=== PATIENT | male | born 1945 | race Caucasian/White ===

== ENCOUNTER 2020-04-06 09:13 | Outpatient (REF) | payer MEDICARE, SELFPAY ==
[2020-04-06 11:09] LABS: Alanine Aminotransferase 26 U/L (0-40); Anion Gap 15 (12-20); Aspartate Amino Transferase 38 U/L (5-37); Blood Urea Nitrogen 13 mg/dL (9-16); Carbon Dioxide 32 mmol/L (22-29); Chloride 98 mmol/L (96-108); Estimated Glomerular Filt Rate > 60; Potassium 3.9 mmol/L (3.3-5.1); Sodium 141 mmol/L (135-145)
== END 2020-04-06 09:14 | disposition home or self-care (01) ==
LOC: HO.10HDL 09:13
PROVIDERS: Visit Provider Family Medicine
DX: I10 Essential (primary) hypertension (principal); E78.00 Pure hypercholesterolemia, unspecified; Z79.899 Other long term (current) drug therapy
CPT/HCPCS: 36415; 80051; 82550; 82565; 84450; 84460; 84520

== ENCOUNTER → 2020-08-17 12:35 | Outpatient (BNVA) | payer MEDICARE, SELFPAY | PROVIDERS: PCP Family Medicine; Referring Provider Family Medicine; Visit Provider Internal Medicine Cardiovascular Disease | DX: I49.9 Cardiac arrhythmia, unspecified (principal) | CPT/HCPCS: 93005; 99212 ==

== ENCOUNTER 2020-09-28 06:24 | Outpatient (REF) | payer MEDICARE, SELFPAY ==
[2020-09-28 09:00] LABS: Alanine Aminotransferase 22 U/L (0-40); Anion Gap 11 (12-20); Blood Urea Nitrogen 18 mg/dL (9-16); Carbon Dioxide 35 mmol/L (22-29); Chloride 103 mmol/L (96-108); Estimated Glomerular Filt Rate > 60; Potassium 4.8 mmol/L (3.3-5.1); Sodium 144 mmol/L (135-145)
== END 2020-09-28 06:25 | disposition home or self-care (01) ==
LOC: HO.LAB 06:24
PROVIDERS: Absent Provider Internal Medicine; PCP Family Medicine; Visit Provider Family Medicine
DX: I10 Essential (primary) hypertension (principal); E78.00 Pure hypercholesterolemia, unspecified; Z79.899 Other long term (current) drug therapy
CPT/HCPCS: 36415; 80051; 82550; 82565; 84460; 84520

== ENCOUNTER 2021-01-25 13:41 | Emergency (ER) | payer OTHER, SELFPAY ==
[2021-01-25] VITALS (10 sets, daily range): BP systolic 100–155; BP diastolic 45–88; PULSE 18–99; RESP 16–20; TEMP 36.3–36.9; O2SAT 94–99; BMI 22.8
--- NOTE | 2021-01-25 14:33 | ECG_ITS ---
Test Reason : GENERAL MEDICAL Blood Pressure : / mmHG Vent. Rate : 087 BPM Atrial Rate : 087 BPM P-R Int : 148 ms QRS Dur : 112 ms QT Int : 386 ms P-R-T Axes : 055 -10 080 degrees QTc Int : 464 ms Normal sinus rhythm Incomplete right bundle branch block Nonspecific T wave abnormality Prolonged QT Abnormal ECG When compared with ECG of 16-APR-2019 13:57, Nonspecific T wave abnormality now evident in Anterior leads Referred By: Cata Chandler Electronically Signed By:ISHAN POSADAS MD
--- NOTE | 2021-01-25 14:57 | ED_ITS ---
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 patient reports for the last couple of weeks he has felt very fatigued, short of breath with intermittent chest pains. He has some generalized weakness. He states 3 weeks ago he had 3 episodes of very loose very black stools after he ate sauerkraut. This self resolved. He is now suffering from constipation, last bowel movement was yesterday and he needed to strain to go. Bowel movement was brown. He denies any hematuria or any other source of bleeding. He has required blood transfusion with a past when he had his abdominal and thoracic surgeries. <LIZ Morales - Last Filed: 01/25/21 17:46> MD complaint: abnormal lab <LIZ Morales - Last Filed: 01/25/21 17:46> Returns today for: called because of abnormal lab/test <LIZ Morales Last Filed: 01/25/21 17:46> Context: called for abnormal lab result <LIZ Morales - Last Filed: 01/25/21 17:46> Associated symptoms: chest pain and shortness of breath <LIZ Morales - Last Filed: 01/25/21 17:46> Related Data Home Medications: Home Medications Medication Instructions Recorded Confirmed Lactobacillus acidophilus 10 mg PO DAILY 08/17/20 08/17/20 acetaminophen 120 mg-codeine 12 5 ml PO Q8H 08/17/20 08/17/20 mg/5 mL (5 mL) oral solution aspirin 81 mg tablet,delayed 81 mg PO DAILY 08/17/20 08/17/20 release (Adult Low Dose Aspirin) atorvastatin 40 mg tablet 40 mg PO BEDTIME 08/17/20 08/17/20 cyclobenzaprine 10 mg tablet 10 mg PO BEDTIME 08/17/20 08/17/20 duloxetine 60 mg capsule,delayed 60 mg PO DAILY 08/17/20 08/17/20 release levalbuterol tartrate 45 2 inh INHALATION Q6H 08/17/20 08/17/20 mcg/actuation aerosol inhaler mecobalamin (vitamin B12) 1,000 1,000 mcg PO DAILY 08/17/20 08/17/20 mcg chewable tablet mometasone 200 mcg/actuation HFA 1 puff INHALATION BEDTIME 08/17/20 08/17/20 aerosol inhaler (Asmanex HFA) omeprazole 20 mg capsule,delayed 20 mg PO DAILY 08/17/20 08/17/20 release tamsulosin 0.4 mg capsule 0.4 mg PO BEDTIME 08/17/20 08/17/20 temazepam 15 mg capsule 15 mg PO BEDTIME PRN 08/17/20 08/17/20 <LIZ Morales - Last Filed: 01/25/21 17:46> Allergies/Adverse Reactions: Allergies Allergy/AdvReac Type Severity Reaction Status Date / Time Sulfa (Sulfonamide Allergy Severe THROAT Unverified 10/30/19 14:34 Antibiotics) SWELLING, [SULFA (SULFONAMIDE DIFF ANTIBIOTICS)] BREATHING, SKIN TURNS PINK <LIZ Morales - Last Filed: 01/25/21 17:46> Review of Systems Review of Systems: Constitutional: No Fever, No Chills ENT/Mouth: No sore throat, No Rhinorrhea Cardiovascular: + Chest Pain, + SOB, No Orthopnea, No Edema Respiratory: No Cough, No Sputum, No Wheezing, + dyspnea Gastrointestinal: No Nausea, No Vomiting, No Diarrhea, No abdominal Pain Genitourinary: No Dysuria, No Urinary Frequency, No Hematuria Musculoskeletal: No joint pain, No Myalgias Skin: No Skin Lesions, No rash Neuro: + Weakness, No Numbness, + Dizziness, No Headache Psych: No Anxiety/Panic, No Depression Heme/Lymph: No Bruising, No Lymphadenopathy Endocrine: No Polyuria, No Polydipsia <LIZ Morales - Last Filed: 01/25/21 17:46> [facility] Past Medical History Medical History: Medical History Cardiac arrhythmia COPD (chronic obstructive pulmonary disease) <LIZ Morales - Last Filed: 01/25/21 17:46> Surgical History: Surgical History History of lobectomy of lung <LIZ Morales - Last Filed: 01/25/21 17:46> Family History Family History: Family History Father No problems noted. Mother No problems noted. <LIZ Morales - Last Filed: 01/25/21 17:46> Social History Social History: Social History Alcohol intake: current Alcohol intake frequency: a few times a week Patient Tobacco Use Status: Never used Tobacco Use of substances other than those prescribed or required for medical reasons: No Advance Directives: No Advance Directives Information Provided: Yes <LIZ Morales Last Filed: 01/25/21 17:46> Physical Exam Vital Signs: Vital Signs: Last Vital Signs Temp 98.4 F 01/25/21 20:57 Pulse 84 01/25/21 20:57 Resp 18 01/25/21 20:57 BP 141/88 H 01/25/21 20:57 Pulse Ox 94 01/25/21 20:57 BMI result Body Mass Index 22.8 <LIZ Morales Last Filed: 01/25/21 17:46> Vital Signs: Last Vital Signs Temp 98.4 F 01/25/21 20:57 Pulse 84 01/25/21 20:57 Resp 18 01/25/21 20:57 BP 141/88 H 01/25/21 20:57 Pulse Ox 94 01/25/21 20:57 BMI result Body Mass Index 22.8 <LIZ Narvaez - Last Filed: 01/25/21 22:27> Appearance: Alert. Oriented X3. No acute distress. Pale Eyes: Pupils equal, round and reactive to light. Scleral pallor ENT: Pharynx normal. Neck: Normal inspection. Neck supple. CVS: Normal heart rate and rhythm. Pulses normal. Respiratory: No respiratory distress. Breath sounds diminished RLL, otherwise clear Right chest wall with weal healed surgical scar c/w prior VATS Abdomen: Well healed longitudial surgical scar. Soft and nontender. +BS x4. SKYLA normal sphinter tone, no palpable hemorrhoids, formed brown stool. Skin: Skin warm and dry. Normal skin color. Normal skin turgor. No rashes. Extremities: No lower extremity edema. Neuro: Oriented X 3. No motor deficit. No sensory deficit. <LIZ Morales - Last Filed: 01/25/21 17:46> Course Course Course Narrative: 75 y/o male presents to the ER for evaluation of low hemoglobin. He has symptoms of acute anemia including fatigue, weakness, shortness of breath and intermittent chest pains. Will repeat his H&H here along with iron panel r eticulocyte count. Will get RBC morphology. Will send his stool for occult blood. He is hemodynamically stable with blood pressure 100/45, heart rate in the 90s. <LIZ Morales - Last Filed: 01/25/21 17:46> Reevaluation(s) Reevaluation #1: Hemoglobin 6.6 with hematocrit of 21.8. MCV dropped to the 70s from the 90s. Troponin is negative 4.2. Fecal occult blood test is negative. His iron studies are low. This is consistent with iron-deficiency anemia not acute blood loss. Will plan to transfuse 2 units of blood, repeat H&H to assess for appropriate response. Anticipate he will be discharged home with planned follow-up with hematology. <LIZ Morales - Last Filed: 01/25/21 17:46> MDM - Recheck/Abnormal Lab/Rx Lab Data Result diagrams: : 01/25/21 21:14 01/25/21 15:11 <LIZ Morales - Last Filed: 01/25/21 17:46> Labs: Lab Results 01/25/21 01/25/21 01/25/21 Range/Units 15:11 15:11 15:11 WBC 4.1 L (4.8-10.8) X10*3/uL RBC 2.81 L (4.60-5.80) X10*6/uL Hgb 6.6 L* (14.0-18.0) g/dl Hct 21.8 L (42.0-52.0) % MCV 77.6 L (80.0-98.0) fL MCH 23.5 L (27.0-33.0) pg MCHC 30.3 L (31.0-36.0) g/dl RDW 22.2 H (11.0-16.0) % Plt Count 270 (160-400) X10*3/uL MPV 8.9 L (9.4-12.4) fL Immature Gran % (Auto) 0.2 (0.0-0.4) % Neut % (Auto) 68.0 (45-73) % Lymph % (Auto) 14.5 L (20-40) % Cass % (Auto) 15.3 H (2-11) % Eos % (Auto) 1.5 (0-4) % Baso % (Auto) 0.5 (0-2) % Lymph # (Auto) 0.6 L (1.2-4.9) X10*3/uL Cass # (Auto) 0.6 (0.1-1.2) X10*3/uL Eos # (Auto) 0.1 (0.0-0.4) X10*3/uL Baso # (Auto) 0.0 (0.0-0.2) X10*3/uL Abs Immat Gran (auto) 0.01 (0.00-0.03) X10*3/uL Absolute Neuts (auto) 2.8 (2.0-8.3) x10*3/uL Absolute Nucleated RBC 0.000 (0.0-0.012) X10*3/uL Nucleated RBC % (auto) 0.0 (0.0-0.2) /100WBC Smear Tech's Comments Absolute Retic 0.051 (0.026-0.095) X10*6/uL Percent Retic 1.8 (0.5-1.8) % Immature Retic Fraction 10.1 (2.3-13.4) % Retic Hgb Equivalent 18.8 L (30.0-35.0) pg Sodium 139 (135-145) mmol/L Potassium 3.9 (3.3-5.1) mmol/L Chloride 99 (96-108) mmol/L Carbon Dioxide 31 H (22-29) mmol/L Anion Gap 13 (12-20) BUN 21 H (9-16) mg/dL Creatinine 0.96 (0.5-1.4) mg/dL Estim Creat Clear Calc 67.1 Estimated GFR > 60 Random Glucose 108 (60-115) mg/dL Calcium 9.4 (8.4-10.2) mg/dL Magnesium 1.9 (1.6-2.6) mg/dL Iron 21 L (45-160) mcg/dL TIBC 420 (228-428) mcg/dL % Saturation 5 L (15-50) % Unsat Iron Binding 399 ug/dL Total Bilirubin 0.5 (0.0-1.0) mg/dL Direct Bilirubin 0.2 (0.0-0.5) mg/dL AST 19 D (5-37) U/L ALT 15 (0-40) U/L Alkaline Phosphatase 61 (39-117) U/L Troponin I High Sens 4.2 (<3.5-35.0) ng/L Total Protein 6.7 (6.5-8.0) g/dL Albumin 4.3 (3.5-5.0) g/dL Urine Color Urine Appearance Urine pH (5.0-8.0) Ur Specific [place] (1.005-1.025) Urine Protein (NEG-TRACE) MG/DL Urine Glucose (UA) (NEG) MG/DL Urine Ketones (NEG) MG/DL Urine Blood (NEG) Urine Nitrite (NEG) Ur Leukocyte Esterase (NEG) Stool Occult Blood (NEGATIVE) COVID-19 (VASILIY) (Negative) COVID-19 Clin [facility] Blood Type Antibody Screen Crossmatch 01/25/21 01/25/21 01/25/21 Range/Units 15:11 15:11 15:16 WBC (4.8-10.8) X10*3/uL RBC (4.60-5.80) X10*6/uL Hgb (14.0-18.0) g/dl Hct (42.0-52.0) % MCV (80.0-98.0) fL MCH (27.0-33.0) pg MCHC (31.0-36.0) g/dl RDW (11.0-16.0) % Plt Count (160-400) X10*3/uL MPV (9.4-12.4) fL Immature Gran % (Auto) (0.0-0.4) % Neut % (Auto) (45-73) % Lymph % (Auto) (20-40) % Cass % (Auto) (2-11) % Eos % (Auto) (0-4) % Baso % (Auto) (0-2) % Lymph # (Auto) (1.2-4.9) X10*3/uL Cass # (Auto) (0.1-1.2) X10*3/uL Eos # (Auto) (0.0-0.4) X10*3/uL Baso # (Auto) (0.0-0.2) X10*3/uL Abs Immat Gran (auto) (0.00-0.03) X10*3/uL Absolute Neuts (auto) (2.0-8.3) x10*3/uL Absolute Nucleated RBC (0.0-0.012) X10*3/uL Nucleated RBC % (auto) (0.0-0.2) /100WBC Smear Tech's Comments Absolute Retic (0.026-0.095) X10*6/uL Percent Retic (0.5-1.8) % Immature Retic Fraction (2.3-13.4) % Retic Hgb Equivalent (30.0-35.0) pg Sodium (135-145) mmol/L Potassium (3.3-5.1) mmol/L Chloride (96-108) mmol/L Carbon Dioxide (22-29) mmol/L Anion Gap (12-20) BUN (9-16) mg/dL Creatinine (0.5-1.4) mg/dL Estim Creat Clear Calc Estimated GFR Random Glucose (60-115) mg/dL Calcium (8.4-10.2) mg/dL Magnesium (1.6-2.6) mg/dL Iron (45-160) mcg/dL TIBC (228-428) mcg/dL % Saturation (15-50) % Unsat Iron Binding ug/dL Total Bilirubin (0.0-1.0) mg/dL Direct Bilirubin (0.0-0.5) mg/dL AST (5-37) U/L ALT (0-40) U/L Alkaline Phosphatase (39-117) U/L Troponin I High Sens (<3.5-35.0) ng/L Total Protein (6.5-8.0) g/dL Albumin (3.5-5.0) g/dL Urine Color Urine Appearance Urine pH (5.0-8.0) Ur Specific [place] (1.005-1.025) Urine Protein (NEG-TRACE) MG/DL Urine Glucose (UA) (NEG) MG/DL Urine Ketones (NEG) MG/DL Urine Blood (NEG) Urine Nitrite (NEG) Ur Leukocyte Esterase (NEG) Stool Occult Blood NEGATIVE (NEGATIVE) COVID-19 (VASILIY) Negative (Negative) COVID-19 Clin Com See Note Blood Type A Positive Antibody Screen NEGATIVE Crossmatch See Detail 01/25/21 01/25/21 Range/Units 19:14 21:14 WBC 4.2 L (4.8-10.8) X10*3/uL RBC 3.23 L (4.60-5.80) X10*6/uL Hgb 8.2 L D (14.0-18.0) g/dl Hct 25.7 L (42.0-52.0) % MCV 79.6 L (80.0-98.0) fL MCH 25.4 L (27.0-33.0) pg MCHC 31.9 (31.0-36.0) g/dl RDW 21.1 H (11.0-16.0) % Plt Count 245 (160-400) X10*3/uL MPV 9.2 L (9.4-12.4) fL Immature Gran % (Auto) 0.2 (0.0-0.4) % Neut % (Auto) 48.6 (45-73) % Lymph % (Auto) 26.6 (20-40) % Cass % (Auto) 20.6 H (2-11) % Eos % (Auto) 3.3 (0-4) % Baso % (Auto) 0.7 (0-2) % Lymph # (Auto) 1.1 L (1.2-4.9) X10*3/uL Cass # (Auto) 0.9 (0.1-1.2) X10*3/uL Eos # (Auto) 0.1 (0.0-0.4) X10*3/uL Baso # (Auto) 0.0 (0.0-0.2) X10*3/uL Abs Immat Gran (auto) 0.01 (0.00-0.03) X10*3/uL Absolute Neuts (auto) 2.0 (2.0-8.3) x10*3/uL Absolute Nucleated RBC 0.000 (0.0-0.012) X10*3/uL Nucleated RBC % (auto) 0.0 (0.0-0.2) /100WBC Smear Tech's Comments VERIFIED Absolute Retic (0.026-0.095) X10*6/uL Percent Retic (0.5-1.8) % Immature Retic Fraction (2.3-13.4) % Retic Hgb Equivalent (30.0-35.0) pg Sodium (135-145) mmol/L Potassium (3.3-5.1) mmol/L Chloride (96-108) mmol/L Carbon Dioxide (22-29) mmol/L Anion Gap (12-20) BUN (9-16) mg/dL Creatinine (0.5-1.4) mg/dL Estim Creat Clear Calc Estimated GFR Random Glucose (60-115) mg/dL Calcium (8.4-10.2) mg/dL Magnesium (1.6-2.6) mg/dL Iron (45-160) mcg/dL TIBC (228-428) mcg/dL % Saturation (15-50) % Unsat Iron Binding ug/dL Total Bilirubin (0.0-1.0) mg/dL Direct Bilirubin (0.0-0.5) mg/dL AST (5-37) U/L ALT (0-40) U/L Alkaline Phosphatase (39-117) U/L Troponin I High Sens (<3.5-35.0) ng/L Total Protein (6.5-8.0) g/dL Albumin (3.5-5.0) g/dL Urine Color YELLOW Urine Appearance CLEAR Urine pH 6.0 (5.0-8.0) Ur Specific [place] 1.010 (1.005-1.025) Urine Protein NEG (NEG-TRACE) MG/DL Urine Glucose (UA) NEG (NEG) MG/DL Urine Ketones 5 (NEG) MG/DL Urine Blood NEG (NEG) Urine Nitrite NEG (NEG) Ur Leukocyte Esterase NEG (NEG) Stool Occult Blood (NEGATIVE) COVID-19 (VASILIY) (Negative) COVID-19 Clin Com Blood Type Antibody Screen Crossmatch <LIZ Morales - Last Filed: 01/25/21 17:46> Lab Results 01/25/21 01/25/21 01/25/21 Range/Units 15:11 15:11 15:11 WBC 4.1 L (4.8-10.8) X10*3/uL RBC 2.81 L (4.60-5.80) X10*6/uL Hgb 6.6 L* (14.0-18.0) g/dl Hct 21.8 L (42.0-52.0) % MCV 77.6 L (80.0-98.0) fL MCH 23.5 L (27.0-33.0) pg MCHC 30.3 L (31.0-36.0) g/dl RDW 22.2 H (11.0-16.0) % Plt Count 270 (160-400) X10*3/uL MPV 8.9 L (9.4-12.4) fL Immature Gran % (Auto) 0.2 (0.0-0.4) % Neut % (Auto) 68.0 (45-73) % Lymph % (Auto) 14.5 L (20-40) % Cass % (Auto) 15.3 H (2-11) % Eos % (Auto) 1.5 (0-4) % Baso % (Auto) 0.5 (0-2) % Lymph # (Auto) 0.6 L (1.2-4.9) X10*3/uL Cass # (Auto) 0.6 (0.1-1.2) X10*3/uL Eos # (Auto) 0.1 (0.0-0.4) X10*3/uL Baso # (Auto) 0.0 (0.0-0.2) X10*3/uL Abs Immat Gran (auto) 0.01 (0.00-0.03) X10*3/uL Absolute Neuts (auto) 2.8 (2.0-8.3) x10*3/uL Absolute Nucleated RBC 0.000 (0.0-0.012) X10*3/uL Nucleated RBC % (auto) 0.0 (0.0-0.2) /100WBC Smear Tech's Comments Absolute Retic 0.051 (0.026-0.095) X10*6/uL Percent Retic 1.8 (0.5-1.8) % Immature Retic Fraction 10.1 (2.3-13.4) % Retic Hgb Equivalent 18.8 L (30.0-35.0) pg Sodium 139 (135-145) mmol/L Potassium 3.9 (3.3-5.1) mmol/L Chloride 99 (96-108) mmol/L Carbon Dioxide 31 H (22-29) mmol/L Anion Gap 13 (12-20) BUN 21 H (9-16) mg/dL Creatinine 0.96 (0.5-1.4) mg/dL Estim Creat Clear Calc 67.1 Estimated GFR > 60 Random Glucose 108 (60-115) mg/dL Calcium 9.4 (8.4-10.2) mg/dL Magnesium 1.9 (1.6-2.6) mg/dL Iron 21 L (45-160) mcg/dL TIBC 420 (228-428) mcg/dL % Saturation 5 L (15-50) % Unsat Iron Binding 399 ug/dL Total Bilirubin 0.5 (0.0-1.0) mg/dL Direct Bilirubin 0.2 (0.0-0.5) mg/dL AST 19 D (5-37) U/L ALT 15 (0-40) U/L Alkaline Phosphatase 61 (39-117) U/L Troponin I High Sens 4.2 (<3.5-35.0) ng/L Total Protein 6.7 (6.5-8.0) g/dL Albumin 4.3 (3.5-5.0) g/dL Urine Color Urine Appearance Urine pH (5.0-8.0) Ur Specific [place] (1.005-1.025) Urine Protein (NEG-TRACE) MG/DL Urine Glucose (UA) (NEG) MG/DL Urine Ketones (NEG) MG/DL Urine Blood (NEG) Urine Nitrite (NEG) Ur Leukocyte Esterase (NEG) Stool Occult Blood (NEGATIVE) COVID-19 (VASILIY) (Negative) COVID-19 Clin Com Blood Type Antibody Screen Crossmatch 01/25/21 01/25/21 01/25/21 Range/Units 15:11 15:11 15:16 WBC (4.8-10.8) X10*3/uL RBC (4.60-5.80) X10*6/uL Hgb (14.0-18.0) g/dl Hct (42.0-52.0) % MCV (80.0-98.0) fL MCH (27.0-33.0) pg MCHC (31.0-36.0) g/dl RDW (11.0-16.0) % Plt Count (160-400) X10*3/uL MPV (9.4-12.4) fL Immature Gran % (Auto) (0.0-0.4) % Neut % (Auto) (45-73) % Lymph % (Auto) (20-40) % Cass % (Auto) (2-11) % Eos % (Auto) (0-4) % Baso % (Auto) (0-2) % Lymph # (Auto) (1.2-4.9) X10*3/uL Cass # (Auto) (0.1-1.2) X10*3/uL Eos # (Auto) (0.0-0.4) X10*3/uL Baso # (Auto) (0.0-0.2) X10*3/uL Abs Immat Gran (auto) (0.00-0.03) X10*3/uL Absolute Neuts (auto) (2.0-8.3) x10*3/uL Absolute Nucleated RBC (0.0-0.012) X10*3/uL Nucleated RBC % (auto) (0.0-0.2) /100WBC Smear Tech's Comments Absolute Retic (0.026-0.095) X10*6/uL Percent Retic (0.5-1.8) % Immature Retic Fraction (2.3-13.4) % Retic Hgb Equivalent (30.0-35.0) pg Sodium (135-145) mmol/L Potassium (3.3-5.1) mmol/L Chloride (96-108) mmol/L Carbon Dioxide (22-29) mmol/L Anion Gap (12-20) BUN (9-16) mg/dL Creatinine (0.5-1.4) mg/dL Estim Creat Clear Calc Estimated GFR Random Glucose (60-115) mg/dL Calcium (8.4-10.2) mg/dL Magnesium (1.6-2.6) mg/dL Iron (45-160) mcg/dL TIBC (228-428) mcg/dL % Saturation (15-50) % Unsat Iron Binding ug/dL Total Bilirubin (0.0-1.0) mg/dL Direct Bilirubin (0.0-0.5) mg/dL AST (5-37) U/L ALT (0-40) U/L Alkaline Phosphatase (39-117) U/L Troponin I High Sens (<3.5-35.0) ng/L Total Protein (6.5-8.0) g/dL Albumin (3.5-5.0) g/dL Urine Color Urine Appearance Urine pH (5.0-8.0) Ur Specific [place] (1.005-1.025) Urine Protein (NEG-TRACE) MG/DL Urine Glucose (UA) (NEG) MG/DL Urine Ketones (NEG) MG/DL Urine Blood (NEG) Urine Nitrite (NEG) Ur Leukocyte Esterase (NEG) Stool Occult Blood NEGATIVE (NEGATIVE) COVID-19 (VASILIY) Negative (Negative) COVID-19 Clin Com See Note Blood Type A Positive Antibody Screen NEGATIVE Crossmatch See Detail 01/25/21 01/25/21 Range/Units 19:14 21:14 WBC 4.2 L (4.8-10.8) X10*3/uL RBC 3.23 L (4.60-5.80) X10*6/uL Hgb 8.2 L D (14.0-18.0) g/dl Hct 25.7 L (42.0-52.0) % MCV 79.6 L (80.0-98.0) fL MCH 25.4 L (27.0-33.0) pg MCHC 31.9 (31.0-36.0) g/dl RDW 21.1 H (11.0-16.0) % Plt Count 245 (160-400) X10*3/uL MPV 9.2 L (9.4-12.4) fL Immature Gran % (Auto) 0.2 (0.0-0.4) % Neut % (Auto) 48.6 (45-73) % Lymph % (Auto) 26.6 (20-40) % Cass % (Auto) 20.6 H (2-11) % Eos % (Auto) 3.3 (0-4) % Baso % (Auto) 0.7 (0-2) % Lymph # (Auto) 1.1 L (1.2-4.9) X10*3/uL Cass # (Auto) 0.9 (0.1-1.2) X10*3/uL Eos # (Auto) 0.1 (0.0-0.4) X10*3/uL Baso # (Auto) 0.0 (0.0-0.2) X10*3/uL Abs Immat Gran (auto) 0.01 (0.00-0.03) X10*3/uL Absolute Neuts (auto) 2.0 (2.0-8.3) x10*3/uL Absolute Nucleated RBC 0.000 (0.0-0.012) X10*3/uL Nucleated RBC % (auto) 0.0 (0.0-0.2) /100WBC Smear Tech's Comments VERIFIED Absolute Retic (0.026-0.095) X10*6/uL Percent Retic (0.5-1.8) % Immature Retic Fraction (2.3-13.4) % Retic Hgb Equivalent (30.0-35.0) pg Sodium (135-145) mmol/L Potassium (3.3-5.1) mmol/L Chloride (96-108) mmol/L Carbon Dioxide (22-29) mmol/L Anion Gap (12-20) BUN (9-16) mg/dL Creatinine (0.5-1.4) mg/dL Estim Creat Clear Calc Estimated GFR Random Glucose (60-115) mg/dL Calcium (8.4-10.2) mg/dL Magnesium (1.6-2.6) mg/dL Iron (45-160) mcg/dL TIBC (228-428) mcg/dL % Saturation (15-50) % Unsat Iron Binding ug/dL Total Bilirubin (0.0-1.0) mg/dL Direct Bilirubin (0.0-0.5) mg/dL AST (5-37) U/L ALT (0-40) U/L Alkaline Phosphatase (39-117) U/L Troponin I High Sens (<3.5-35.0) ng/L Total Protein (6.5-8.0) g/dL Albumin (3.5-5.0) g/dL Urine Color YELLOW Urine Appearance CLEAR Urine pH 6.0 (5.0-8.0) Ur Specific [place] 1.010 (1.005-1.025) Urine Protein NEG (NEG-TRACE) MG/DL Urine Glucose (UA) NEG (NEG) MG/DL Urine Ketones 5 (NEG) MG/DL Urine Blood NEG (NEG) Urine Nitrite NEG (NEG) Ur Leukocyte Esterase NEG (NEG) Stool Occult Blood (NEGATIVE) COVID-19 (VASILIY) (Negative) COVID-19 Clin Com Blood Type Antibody Screen Crossmatch <LIZ Narvaez - Last Filed: 01/25/21 22:27> ECG Data Attestation: I personally reviewed and interpreted this ECG as follows: <LIZ Morales - Last Filed: 01/25/21 17:46> ECG interpretation date: 01/25/21 <LIZ Morales - Last Filed: 01/25/21 17:46> ECG interpretation time: 17:45 <LIZ Morales - Last Filed: 01/25/21 17:46> Prior ECG tracings: not available for review <LIZ Morales - Last Filed: 01/25/21 17:46> Interpretation: Normal sinus rhythm, heart rate 87 beats per minute, incomplete right bundle-branch block, no ST segment elevations or depressions. <LIZ Morales - Last Filed: 01/25/21 17:46> Critical Care Time Critical Care Time Critical Care Time: Yes <LIZ Morales - Last Filed: 01/25/21 17:46> Total Critical Care Time: 38 <LIZ Morales - Last Filed: 01/25/21 17:46> Attestation: I have personally provided critical care time exclusive of time spent on separately billable procedures. Time includes review of lab data, radiology results, and monitoring for potential decompensation. Intervention performed as documented. <LIZ Morales - Last Filed: 01/25/21 17:46> Discharge Plan Discharge Clinical Impression: Iron deficiency anemia Qualifiers: Iron deficiency anemia type: unspecified iron deficiency Qualified Code(s): D50.9 - Iron deficiency anemia, unspecified <LIZ Morales - Last Filed: 01/25/21 17:46> Patient Disposition: Home, Self-Care <LIZ Morales - Last Filed: 01/25/21 17:46> Instructions: Iron Deficiency Anemia (ED), Anemia (ED) <LIZ Morales - Last Filed: 01/25/21 17:46> Additional Instructions: Your hemoglobin was low at 6.6 today. Your stool had no blood in it. Your iron studies were low. Recommend starting an iron supplement daily. This can cause constipation so also recommend starting [id number] Colace to soften her stool and daily MiraLax to help prevent & treat constipation Recommend following up with Hematology for further evaluation. If you develop new or worsening symptoms call 911 or come back to the ER for further evaluation. <LIZ Morales - Last Filed: 01/25/21 17:46> Prescriptions: No Action aspirin [Adult Low Dose Aspirin] 81 mg tablet,delayed release (DR/EC) 81 mg PO DAILY RF: 0 mecobalamin (vitamin B12) 1,000 mcg tablet,chewable 1,000 mcg PO DAILY RF: 0 duloxetine 60 mg capsule,delayed release(DR/EC) 60 mg PO DAILY RF: 0 omeprazole 20 mg capsule,delayed release(DR/EC) 20 mg PO DAILY RF: 0 tamsulosin 0.4 mg capsule 0.4 mg PO BEDTIME RF: 0 Asmanex HFA 200 mcg/actuation HFA aerosol inhaler 1 puff inhalation BEDTIME RF: 0 atorvastatin 40 mg tablet 40 mg PO BEDTIME RF: 0 levalbuterol tartrate 45 mcg/actuation HFA aerosol inhaler 2 inh inhalation Q6H RF: 0 Lactobacillus acidophilus Capsule 10 mg PO DAILY RF: 0 temazepam 15 mg capsule 15 mg PO BEDTIME PRNRF: 0 acetaminophen-codeine 120 mg-12 mg /5 mL (5 mL) solution 5 ml PO Q8H RF: 0 cyclobenzaprine 10 mg tablet 10 mg PO BEDTIME RF: 0 <LIZ Morales - Last Filed: 01/25/21 17:46> Referrals: Liseth Mccarthy MD [Physician] - 2 days (Severe iron deficiency anemia) <LIZ Morales - Last Filed: 01/25/21 17:46>
[2021-01-25 15:18] LABS: MANUAL DIFF FLAG NO
[2021-01-25 15:20] LABS: Basophils Percent Auto 0.5 % (0-2); Eosinophils Absolute Auto 0.1 X10*3/uL (0.0-0.4); Eosinophils Percent Auto 1.5 % (0-4); Hematocrit 21.8 % (42.0-52.0); Imm Gran Abs Auto 0.01 X10*3/uL (0.00-0.03); Imm Gran Pct Auto 0.2 % (0.0-0.4); Immature Retic Fraction 10.1 % (2.3-13.4); Lymphocytes Absolute Auto 0.6 X10*3/uL (1.2-4.9); Lymphocytes Percent Auto 14.5 % (20-40); Mean Corpuscular HGB Conc 30.3 g/dl (31.0-36.0); Mean Corpuscular Hemoglobin 23.5 pg (27.0-33.0); Mean Corpuscular Volume 77.6 fL (80.0-98.0); Mean Platelet Volume 8.9 fL (9.4-12.4); Monocytes Absolute Auto 0.6 X10*3/uL (0.1-1.2); Monocytes Percent Auto 15.3 % (2-11); Neutrophils Absolute Auto 2.8 x10*3/uL (2.0-8.3); Platelet Count 270 X10*3/uL (160-400); Red Blood Count 2.81 X10*6/uL (4.60-5.80); Red Cell Distribution Width 22.2 % (11.0-16.0); Retic HGB Equivalent 18.8 pg (30.0-35.0); Reticulocyte Percent 1.8 % (0.5-1.8); Reticulocytes Absolute 0.051 X10*6/uL (0.026-0.095); White Blood Count 4.1 X10*3/uL (4.8-10.8)
[2021-01-25 15:24] LABS: OBS1 NEGATIVE (NEGATIVE)
[2021-01-25 15:25] LABS: OBS Int Ctl Valid YES
--- NOTE | 2021-01-25 15:30 | PC.NURSE ---
pt reports intermittent lightheadedness and dizziness. has palor lowerconjunctiva. slight tachipnea. LS CTA. last bm was yesterday after a few days of constipation. slight tenderness LLQ.
[2021-01-25 15:33] LABS: COVID-19 Test Negative (Negative)
[2021-01-25 15:37] LABS: Troponin-I High Sensitivity 4.2 ng/L (<3.5-35.0)
[2021-01-25 15:38] LABS: Alanine Aminotransferase 15 U/L (0-40); Albumin Level 4.3 g/dL (3.5-5.0); Alkaline Phosphatase 61 U/L (39-117); Anion Gap 13 (12-20); Aspartate Amino Transferase 19 U/L (5-37); Bilirubin Direct 0.2 mg/dL (0.0-0.5); Bilirubin Total 0.5 mg/dL (0.0-1.0); Blood Urea Nitrogen 21 mg/dL (9-16); Calcium 9.4 mg/dL (8.4-10.2); Carbon Dioxide 31 mmol/L (22-29); Chloride 99 mmol/L (96-108); Creatinine Clr Calc Pharmacy 67.1; Estimated Glomerular Filt Rate > 60; Glucose Random 108 mg/dL (60-115); Iron 21 mcg/dL (45-160); Magnesium 1.9 mg/dL (1.6-2.6); Percent Iron Saturation 5 % (15-50); Potassium 3.9 mmol/L (3.3-5.1); Sodium 139 mmol/L (135-145); Total Iron Binding Capacity 420 mcg/dL (228-428); Total Protein 6.7 g/dL (6.5-8.0); Unsaturated Iron Binding 399 ug/dL
[2021-01-25 15:43] LABS: Hemoglobin 6.6 g/dl (14.0-18.0)
--- NOTE | 2021-01-25 19:27 | PC.NURSE ---
1st unit of blood ended at 1926.
[2021-01-25 19:28] LABS: Appearance Urine CLEAR; Color Urine YELLOW; Glucose Urine UA NEG (NEG); Leukocyte Esterase Urine NEG (NEG); Nitrite Urine NEG (NEG); Urine Blood NEG (NEG); Urine Ketones 5 MG/DL (NEG); Urine Protein NEG (NEG-TRACE)
--- NOTE | 2021-01-25 20:55 | PC.NURSE ---
End of second transfusion now. VSS, patient tolerated transfusion as expected
[2021-01-25 21:19] LABS: Basophils Percent Auto 0.7 % (0-2); Eosinophils Absolute Auto 0.1 X10*3/uL (0.0-0.4); Eosinophils Percent Auto 3.3 % (0-4); Hematocrit 25.7 % (42.0-52.0); Hemoglobin 8.2 g/dl (14.0-18.0); Imm Gran Abs Auto 0.01 X10*3/uL (0.00-0.03); Imm Gran Pct Auto 0.2 % (0.0-0.4); Lymphocytes Absolute Auto 1.1 X10*3/uL (1.2-4.9); Lymphocytes Percent Auto 26.6 % (20-40); MANUAL DIFF FLAG SCAN; Mean Corpuscular HGB Conc 31.9 g/dl (31.0-36.0); Mean Corpuscular Hemoglobin 25.4 pg (27.0-33.0); Mean Corpuscular Volume 79.6 fL (80.0-98.0); Mean Platelet Volume 9.2 fL (9.4-12.4); Monocytes Absolute Auto 0.9 X10*3/uL (0.1-1.2); Monocytes Percent Auto 20.6 % (2-11); Neutrophils Percent Auto 48.6 % (45-73); Platelet Count 245 X10*3/uL (160-400); Red Blood Count 3.23 X10*6/uL (4.60-5.80); Red Cell Distribution Width 21.1 % (11.0-16.0); SCAN SMEAR FLAG 1; White Blood Count 4.2 X10*3/uL (4.8-10.8)
[2021-01-25 22:05] LABS: SLIDE REVIEW VERIFIED
== END 2021-01-26 00:23 | disposition home or self-care (01) ==
PROVIDERS: Physician Assistant; Physician Assistant Medical; Emergency Provider Emergency Medicine
DX: D50.9 Iron deficiency anemia, unspecified (principal); Z20.822 Contact with and (suspected) exposure to COVID-19; R53.1 Weakness
CPT/HCPCS: 36415; 36430; 80048; 80076; 81003; 82272; 83540; 83735; 84484; 85025; 85045; 86850; 86900; 86901; 86923; 87635; 93005; 99285; 99291; P9016

== ENCOUNTER 2021-01-31 10:37 | Outpatient (REF) | payer MEDICARE, SELFPAY ==
[2021-01-31 15:00] LABS: Imm Gran Abs Auto 0.01 X10*3/uL (0.00-0.03); Imm Gran Pct Auto 0.3 % (0.0-0.4); Lymphocytes Absolute Auto 0.7 X10*3/uL (1.2-4.9); MANUAL DIFF FLAG SCAN; SCAN SMEAR FLAG 1
[2021-01-31 15:02] LABS: Basophils Percent Auto 0.6 % (0-2); Eosinophils Absolute Auto 0.1 X10*3/uL (0.0-0.4); Eosinophils Percent Auto 2.2 % (0-4); Hematocrit 29.8 % (42.0-52.0); Hemoglobin 9.2 g/dl (14.0-18.0); Lymphocytes Percent Auto 23.3 % (20-40); Mean Corpuscular HGB Conc 30.9 g/dl (31.0-36.0); Mean Platelet Volume 9.7 fL (9.4-12.4); Monocytes Absolute Auto 0.5 X10*3/uL (0.1-1.2); Monocytes Percent Auto 15.4 % (2-11); Neutrophils Absolute Auto 1.9 x10*3/uL (2.0-8.3); Neutrophils Percent Auto 58.2 % (45-73); Platelet Count 289 X10*3/uL (160-400); Red Blood Count 3.68 X10*6/uL (4.60-5.80); Red Cell Distribution Width 22.6 % (11.0-16.0); White Blood Count 3.2 X10*3/uL (4.8-10.8)
[2021-01-31 15:36] LABS: Reticulocytes Absolute 0.084 X10*6/uL (0.026-0.095)
[2021-01-31 15:37] LABS: Immature Retic Fraction 10.2 % (2.3-13.4); Retic HGB Equivalent 19.8 pg (30.0-35.0); Reticulocyte Percent 2.3 % (0.5-1.8)
[2021-01-31 15:38] LABS: Prothrombin Time 11.5 SEC (9.9-13.0)
[2021-01-31 15:51] LABS: SLIDE REVIEW VERIFIED
== END 2021-01-31 10:38 | disposition home or self-care (01) ==
LOC: HO.10HDL 10:37
PROVIDERS: Visit Provider Family Medicine
DX: D64.9 Anemia, unspecified (principal)
CPT/HCPCS: 36415; 85025; 85045; 85610

== ENCOUNTER 2021-02-01 11:07 | Outpatient (REF) | payer MEDICARE, SELFPAY ==
[2021-02-01 14:56] LABS: Iron 21 mcg/dL (45-160); Percent Iron Saturation 5 % (15-50); Total Iron Binding Capacity 429 mcg/dL (228-428); Unsaturated Iron Binding 408 ug/dL
== END 2021-02-01 11:08 | disposition home or self-care (01) ==
LOC: HO.10HDL 11:07
PROVIDERS: Visit Provider Family Medicine
DX: D64.9 Anemia, unspecified (principal)
CPT/HCPCS: 36415; 83540

== ENCOUNTER 2021-02-07 10:46 | Day surgery (SDC) | payer MEDICARE, SELFPAY ==
--- NOTE | 2021-02-03 13:01 | P.CONAN_ITS ---
Documented by User: Monika Chacon NP 02/03/21 13:10 HPI - Anesthesia Eval Consult details Narrative: 75yo M for Upper Endoscopy and Colonoscopy [facility] Active Problems Active Problems: All Active Problems (Updated 01/27/21 @ 00:02 by Vic Davis) Cardiac arrhythmia (Acute) Past Medical History Medical History Cardiac arrhythmia COPD (chronic obstructive pulmonary disease) Family History Family History Father No problems noted. Mother No problems noted. Surgical History Surgical History History of lobectomy of lung Social History Social History Alcohol intake: current Alcohol intake frequency: a few times a week Patient Tobacco Use Status: Never used Tobacco Second Hand Smoke Exposure: No Use of substances other than those prescribed or required for medical reasons: No Are you DNR?: No Advance Directives: No Advance Directives Information Provided: Yes Advance Directives on File: No Narrative Narrative: Follows [facility] [place] [facility] [place] [facility] for arrhythmia. Does not tolerate beta blockers. No further pharm treatment. Stress mitigation. Last seen 08/2020 with 1 year follow up. Meds Allergies Allergy/AdvReac Type Severity Reaction Status Date / Time Sulfa (Sulfonamide Allergy Severe THROAT Unverified 10/30/19 14:34 Antibiotics) SWELLING, [SULFA (SULFONAMIDE DIFF ANTIBIOTICS)] BREATHING, SKIN TURNS PINK Home Medications Medication Instructions Recorded Confirmed Last Taken Type Lactobacillus acidophilus 10 mg PO DAILY 08/17/20 08/17/20 Unknown History acetaminophen 120 mg-codeine 12 5 ml PO Q8H 08/17/20 08/17/20 Unknown History mg/5 mL (5 mL) oral solution aspirin 81 mg tablet,delayed 81 mg PO DAILY 08/17/20 08/17/20 02/02/21 History release (Adult Low Dose Aspirin) atorvastatin 40 mg tablet 40 mg PO BEDTIME 08/17/20 08/17/20 Unknown History cyclobenzaprine 10 mg tablet 10 mg PO BEDTIME 08/17/20 08/17/20 Unknown History duloxetine 60 mg capsule,delayed 60 mg PO DAILY 08/17/20 08/17/20 Unknown Hi story release levalbuterol tartrate 45 2 inh INHALATION Q6H 08/17/20 08/17/20 Unknown History mcg/actuation aerosol inhaler mecobalamin (vitamin B12) 1,000 1,000 mcg PO DAILY 08/17/20 08/17/20 Unknown History mcg chewable tablet mometasone 200 mcg/actuation HFA 1 puff INHALATION BEDTIME 08/17/20 08/17/20 Unknown History aerosol inhaler (Asmanex HFA) omeprazole 20 mg capsule,delayed 20 mg PO DAILY 08/17/20 08/17/20 Unknown History release tamsulosin 0.4 mg capsule 0.4 mg PO BEDTIME 08/17/20 08/17/20 Unknown History temazepam 15 mg capsule 15 mg PO BEDTIME PRN 08/17/20 08/17/20 Unknown History Exam Exam Date and Time: February 03, 2021 1301 Pertinent Lab Results Pertinent Lab Results: Laboratory Tests 01/25/21 01/31/21 15:11 10:42 WBC 3.2 L Hgb 9.2 L Hct 29.8 L Plt Count 289 Sodium 139 Potassium 3.9 Chloride 99 Carbon Dioxide 31 H BUN 21 H Creatinine 0.96 Assessment and Plan Assessment Anesthesia Assessment: Chart Reviewed Documented by User: Edelmira Owen MD 02/07/21 11:22 [facility] Past Medical History Medical History Cardiac arrhythmia COPD (chronic obstructive pulmonary disease) Family History Family History Father No problems noted. Mother No problems noted. Surgical History Surgical History History of lobectomy of lung Social History Social History Alcohol intake: current Alcohol intake frequency: a few times a week Patient Tobacco Use Status: Never used Tobacco Second Hand Smoke Exposure: No Use of substances other than those prescribed or required for medical reasons: No Are you DNR?: No Advance Directives: No Advance Directives Information Provided: Yes Advance Directives on File: No Meds Allergies Allergy/AdvReac Type Severity Reaction Status Date / Time Sulfa (Sulfonamide Allergy Severe THROAT Unverified 10/30/19 14:34 Antibiotics) SWELLING, [SULFA (SULFONAMIDE DIFF ANTIBIOTICS)] BREATHING, SKIN TURNS PINK Home Medications Medication Instructions Recorded Confirmed Last Taken Type Lactobacillus acidophilus 10 mg PO DAILY 08/17/20 08/17/20 Unknown History acetaminophen 120 mg-codeine 12 5 ml PO Q8H 08/17/20 08/17/20 Unknown History mg/5 mL (5 mL) oral solution aspirin 81 mg tablet,delayed 81 mg PO DAILY 08/17/20 08/17/20 02/02/21 History release (Adult Low Dose Aspirin) atorvastatin 40 mg tablet 40 mg PO BEDTIME 08/17/20 08/17/20 Unknown History cyclobenzaprine 10 mg tablet 10 mg PO BEDTIME 08/17/20 08/17/20 Unknown History duloxetine 60 mg capsule,delayed 60 mg PO DAILY 08/17/20 08/17/20 Unknown History release levalbuterol tartrate 45 2 inh INHALATION Q6H 08/17/20 08/17/20 Unknown History mcg/actuation aerosol inhaler mecobalamin (vitamin B12) 1,000 1,000 mcg PO DAILY 08/17/20 08/17/20 Unknown History mcg chewable tablet mometasone 200 mcg/actuation HFA 1 puff INHALATION BEDTIME 08/17/20 08/17/20 Unknown History aerosol inhaler (Asmanex HFA) omeprazole 20 mg capsule,delayed 20 mg PO DAILY 08/17/20 08/17/20 Unknown History release tamsulosin 0.4 mg capsule 0.4 mg PO BEDTIME 08/17/20 08/17/20 Unknown History temazepam 15 mg capsule 15 mg PO BEDTIME PRN 08/17/20 08/17/20 Unknown History Exam Airway Mallampati Class: II TM Dist: >3cm Neck ROM: Full Partial: Upper
[2021-02-07 10:51] VITALS: BMI 23.1
[2021-02-07 11:12] VITALS: BP 150/91; PULSE 101; RESP 18; TEMP 36.7; O2SAT 98
[2021-02-07 14:15] VITALS: BP 135/77; PULSE 91; RESP 17; TEMP 36.4; O2SAT 100
--- NOTE | 2021-02-07 14:29 | P.BOP_ITS ---
Brief Operative Note Date of Service: 02/07/21 Pre-op diagnosis: Melena, Abnormal CT of colon Post-op diagnosis: other (Gastritis, Hiatal hernia, Colon polyps) Procedure: EGD with bx, Colonoscopy to the cecum and TI with bx/removal of polyps, hot snare polypectomy, and placement of 1 Resolution clip. Surgeon: Romero Lee Anesthesia: MAC Was an Senior Computer Specialist used for this Procedure?: No Estimated blood loss (mL): 3.0 Pathology: other (A. Gastric antrum B. EG Junction at 36cm C. Ascending colon polyps) Condition: stable Disposition: PACU
[2021-02-07 14:30] VITALS: BP 138/82; PULSE 82; RESP 16; TEMP 36.4; O2SAT 99
--- NOTE | 2021-02-07 15:28 | OP_ITS ---
SURGEON: Romero Lee MD INDICATIONS: The patient presents for evaluation of reported melena, anemia, abnormal CT scan of the colon. Full consent obtained from him for both procedures, including risks of bleeding and perforation. PREOPERATIVE DIAGNOSIS: POSTOPERATIVE DIAGNOSIS: PROCEDURE PERFORMED: Esophagogastroduodenoscopy with biopsies and colonoscopy to the cecum and terminal ileum with snare polypectomy, placement of 1 resolution clip, and biopsy and removal of polyps. ESTIMATED BLOOD LOSS: COMPLICATIONS: ANESTHESIA: Monitored anesthesia care. ASSISTANTS: SPECIMENS: PREOPERATIVE DIAGNOSES: Anemia, reported history of melena, and abnormal CT scan of colon. POSTOPERATIVE DIAGNOSES: Anemia, reported history of melena, abnormal CT scan of colon, hiatal hernia, gastritis, history of Goyal esophagus, colon polyps, diverticulosis and internal hemorrhoids. DESCRIPTION OF PROCEDURE: The patient was placed in the left lateral decubitus position. The Olympus video gastroscope was passed in the posterior oropharynx and upper esophagus under direct vision. The scope was passed slowly into the distal esophagus. The gastroesophageal junction appeared at 36 cm. There was some slight irregularity here consistent with reflux and previously known Goyal esophagus. There was no esophagitis, ulcerations, nor any lesions. The scope entered into the stomach. There was a moderate-sized hiatal hernia. There was some gastritis within the hiatal hernia pouch. There was no ulceration or mass. The scope was advanced to pylorus and the duodenum was cannulated to the descending portion. The duodenum including the bulb appeared normal without mass or ulceration. The scope was withdrawn back to the stomach. The gastric antrum had some changes with a chronic gastritis, but no erosions or ulceration. There was good peristalsis. The scope was retroflexed visualizing the proximal stomach carefully, which appeared normal, without any sign of mass or ulceration. Scope was straightened. Biopsies were obtained of the gastric antrum. The scope was withdrawn back in the esophagus. Biopsies were obtained at the EG junction at 36 cm. Proximal to this, the esophageal mucosa appeared normal. The scope was withdrawn from the patient. He was turned around for colonoscopy. The digital rectal exam revealed no abnormalities. The Olympus video pediatric colonoscope was entered into the rectum and advanced easily to the cecum. Once in the cecum, I did identify normal-appearing cecal pouch with appendiceal orifice and a normal-appearing ileocecal valve. The terminal ileum was cannulated and appeared normal. The scope withdrawn back in the colon. The entire cecum and ileocecal valve appeared normal. The scope was slowly withdrawn assessing all mucosal surfaces carefully. Preparation was excellent. In the ascending colon were multiple polyps. Several of these were small, approximately 5 mm or less and grossly hyperplastic. These were all biopsied and removed with cold biopsy forceps. There were then several polyps between 8 and 12 mm in diameter, which were grossly adenomatous in appearance and these were all snared with the hot snare and removed. All the polypectomy sites appeared clean, without any sign of residual polyp nor bleeding, other than 1 in which a resolution clip was applied with good deployment and good hemostasis. All of the specimens were placed in the same container. I did not visualize any other polyps, colitis, nor angiodysplasia. There was a moderate amount of sigmoid diverticulosis. In the rectum, scope was retroflexed visualizing internal hemorrhoids, but no other pathology. The rectal mucosa appeared normal. The scope was straightened and withdrawn from the patient. He tolerated the procedure well and was returned to recovery area in stable condition. IMPRESSION: 1. Multiple colon polyps, status post hot snare polypectomy, and biopsy removal. 2. Diverticulosis. 3. Internal hemorrhoids. 4. Hiatal hernia. 5. Chronic gastritis. 6. History of Goyal esophagus. PLAN: The results of the pathology will be checked. He has been advised to stay off all aspirin and NSAIDs for at least 1 week. He was advised to resume his iron. He will continue his omeprazole on a long-term basis. His most recent CBC did show improvement with a hemoglobin up to a level of 9.2 compared to 8.2 previously. He is not having any particular GI symptoms at this time. He will continue his iron, which I have recommended use twice a day, continue his PPI therapy, and I would recommend that he stay off all aspirin and NSAIDs for the time being. He will have a followup blood count in several weeks and then be seen in the office for followup. He has been advised to call sooner as needed. This has been discussed with his . MD EB Acuña/GABY / [id number]
== END 2021-02-07 15:23 | disposition home or self-care (01) ==
PROVIDERS: PCP Family Medicine; Visit Provider Internal Medicine
PROC: (CPT 45385; principal; 2021-02-07 12:00)
DX: D62 Acute posthemorrhagic anemia (principal); K92.1 Melena; R93.3 Abnormal findings on diagnostic imaging of other parts of digestive tract; D12.2 Benign neoplasm of ascending colon; K57.30 Diverticulosis of large intestine without perforation or abscess without bleeding; K64.8 Other hemorrhoids; K58.1 Irritable bowel syndrome with constipation; K29.50 Unspecified chronic gastritis without bleeding; Z87.19 Personal history of other diseases of the digestive system; K44.9 Diaphragmatic hernia without obstruction or gangrene; K21.9 Gastro-esophageal reflux disease without esophagitis; J44.9 Chronic obstructive pulmonary disease, unspecified; E78.5 Hyperlipidemia, unspecified; Z79.82 Long term (current) use of aspirin; Z79.899 Other long term (current) drug therapy; Z88.2 Allergy status to sulfonamides
CPT/HCPCS: 45385; 45380; 43239; 88305; 88342

== ENCOUNTER 2021-03-08 07:35 | Outpatient (REF) | payer MEDICARE, SELFPAY ==
[2021-03-08 10:16] LABS: MANUAL DIFF FLAG NO
[2021-03-08 10:21] LABS: Eosinophils Absolute Auto 0.2 X10*3/uL (0.0-0.4); Eosinophils Percent Auto 5.1 % (0-4); Hematocrit 38.1 % (42.0-52.0); Imm Gran Abs Auto 0.01 X10*3/uL (0.00-0.03); Imm Gran Pct Auto 0.3 % (0.0-0.4); Lymphocytes Absolute Auto 1.3 X10*3/uL (1.2-4.9); Lymphocytes Percent Auto 33.8 % (20-40); Mean Corpuscular HGB Conc 30.7 g/dl (31.0-36.0); Mean Corpuscular Hemoglobin 25.4 pg (27.0-33.0); Mean Corpuscular Volume 82.8 fL (80.0-98.0); Monocytes Absolute Auto 0.5 X10*3/uL (0.1-1.2); Monocytes Percent Auto 12.5 % (2-11); Neutrophils Absolute Auto 1.9 x10*3/uL (2.0-8.3); Neutrophils Percent Auto 47.3 % (45-73); Red Cell Distribution Width 25.4 % (11.0-16.0); White Blood Count 3.9 X10*3/uL (4.8-10.8)
[2021-03-08 10:24] LABS: Hemoglobin 11.7 g/dl (14.0-18.0)
[2021-03-08 10:52] LABS: Iron 149 mcg/dL (45-160); Percent Iron Saturation 43 % (15-50); Total Iron Binding Capacity 343 mcg/dL (228-428); Unsaturated Iron Binding 194 ug/dL
[2021-03-08 10:55] LABS: Platelet Count 184 X10*3/uL (160-400)
== END 2021-03-08 07:36 | disposition home or self-care (01) ==
LOC: HO.10HDL 07:35
PROVIDERS: Visit Provider Family Medicine
DX: D50.9 Iron deficiency anemia, unspecified (principal); R53.1 Weakness
CPT/HCPCS: 36415; 83540; 85025

== ENCOUNTER → 2021-08-18 13:35 | Outpatient (BNVA) | payer MEDICARE, SELFPAY | PROVIDERS: PCP Family Medicine; Referring Provider Family Medicine; Visit Provider Internal Medicine Cardiovascular Disease | DX: I49.9 Cardiac arrhythmia, unspecified (principal); J44.9 Chronic obstructive pulmonary disease, unspecified; Z79.899 Other long term (current) drug therapy | CPT/HCPCS: 93005; 99212 ==

== ENCOUNTER 2021-10-11 08:05 | Outpatient (REF) | payer MEDICARE, SELFPAY ==
[2021-10-11 08:24] LABS: MANUAL DIFF FLAG NO
[2021-10-11 09:06] LABS: Eosinophils Absolute Auto 0.3 X10*3/uL (0.0-0.4); Eosinophils Percent Auto 6.9 % (0-4); Hematocrit 39.1 % (42.0-52.0); Hemoglobin 12.8 g/dl (14.0-18.0); Imm Gran Abs Auto 0.02 X10*3/uL (0.00-0.03); Imm Gran Pct Auto 0.5 % (0.0-0.4); Lymphocytes Absolute Auto 1.3 X10*3/uL (1.2-4.9); Lymphocytes Percent Auto 31.2 % (20-40); Mean Corpuscular HGB Conc 32.7 g/dl (31.0-36.0); Mean Corpuscular Hemoglobin 30.1 pg (27.0-33.0); Mean Platelet Volume 10.2 fL (9.4-12.4); Monocytes Absolute Auto 0.4 X10*3/uL (0.1-1.2); Monocytes Percent Auto 10.3 % (2-11); Neutrophils Percent Auto 50.1 % (45-73); Platelet Count 198 X10*3/uL (160-400); Red Blood Count 4.25 X10*6/uL (4.60-5.80); Red Cell Distribution Width 13.9 % (11.0-16.0); White Blood Count 4.1 X10*3/uL (4.8-10.8)
[2021-10-11 09:29] LABS: Alanine Aminotransferase 22 U/L (0-40); Anion Gap 15 (12-20); Aspartate Amino Transferase 28 U/L (5-37); Blood Urea Nitrogen 14 mg/dL (9-16); Carbon Dioxide 31 mmol/L (22-29); Chloride 102 mmol/L (96-108); Estimated Glomerular Filt Rate > 60; Iron 131 mcg/dL (45-160); Percent Iron Saturation 61 % (15-50); Potassium 4.2 mmol/L (3.3-5.1); Sodium 144 mmol/L (135-145); Total Iron Binding Capacity 216 mcg/dL (228-428); Unsaturated Iron Binding 85 ug/dL
== END 2021-10-11 08:06 | disposition home or self-care (01) ==
LOC: HO.LAB 08:05
PROVIDERS: PCP Family Medicine; Visit Provider Family Medicine
DX: I10 Essential (primary) hypertension (principal); E78.00 Pure hypercholesterolemia, unspecified; D50.9 Iron deficiency anemia, unspecified; Z79.899 Other long term (current) drug therapy
CPT/HCPCS: 36415; 80051; 82550; 82565; 83540; 84450; 84460; 84520; 85025

== ENCOUNTER → 2021-10-27 10:16 | Outpatient (BNVA) | payer MEDICARE, SELFPAY | PROVIDERS: PCP Family Medicine; Visit Provider Internal Medicine Pulmonary Disease | DX: J47.9 Bronchiectasis, uncomplicated (principal); Z90.2 Acquired absence of lung [part of] | CPT/HCPCS: 99202 ==

== ENCOUNTER → 2021-11-22 10:22 | Outpatient (BNVA) | payer MEDICARE, SELFPAY | PROVIDERS: PCP Family Medicine; Visit Provider Internal Medicine Pulmonary Disease | DX: J44.9 Chronic obstructive pulmonary disease, unspecified (principal); Z90.2 Acquired absence of lung [part of] | CPT/HCPCS: 99212 ==

== ENCOUNTER 2021-11-28 10:33 | Outpatient (REF) | payer MEDICARE, SELFPAY ==
--- NOTE | ~2021-11-28 | CT_ITS ---
EXAMINATION: CT CHEST WITHOUT CONTRAST CLINICAL INFORMATION: Bronchiectasis. COMPARISON: Previous chest x-ray July 2009 TECHNIQUE: Multidetector volumetric CT imaging of the chest was done. Axial MIP volume rendering provided. Sagittal and coronal reformatted images were obtained. This CT examination was performed using dose optimization techniques as appropriate, variously including the following: *Automated exposure control *Adjustment of mA and/or kV according to patient size (this includes techniques or standardized protocols for targeted exams where dose is matched to indication/reason for exam; i.e. extremities or head) *Use of iterative reconstruction technique DLP: 145 mGy-cm FINDINGS: REGULATORY COMPLIANCE MANAGER: LUNGS: Semisolid heterogeneous right upper lobe nodules, largest measuring 5 mm axial image 144, 170, and 200 series 7. Volume loss to the right middle and lower lobe. Scarring or atelectasis in the right lower lobe adjacent to the diaphragmatic pleural surface. Large central groundglass attenuation area in the left upper lobe measuring approximately 2 x 3 cm. Small more peripheral heterogeneous groundglass attenuation nodules in the left upper lobe. 4 mm peripheral calcified left upper lobe nodule axial image 200 series 7. Increased AP dimension of the trachea prominent central airways. No endobronchial or endotracheal lesion or bronchiectasis.. MEDIASTINUM: The mediastinum is normal. CORONARY ARTERY CALCIFICATION: Mild PLEURA: There is no pleural effusion. No pleural mass or thickening. Marked elevation of the right hemidiaphragm. This is similar to previous chest x-ray from 2009. Small focus of diaphragmatic pleural or liver capsular calcification posteriorly axial image 43 series 3. AXILLA: No lymphadenopathy. UPPER ABDOMEN: Cortical thinning or scarring in the upper pole right kidney. Diverticulosis. OSSEOUS STRUCTURES: Degenerative changes of the spine and scoliosis. CT/CT chest wo IV con IMPRESSION: Marked elevation of the right hemidiaphragm. Multiple upper lobe groundglass attenuation nodules, largest measuring 2 x 3 cm in the central left upper lobe. Volume loss to the right middle and right lower lobes and right lower lobe atelectasis. Fleischner guidelines were followed.
== END 2021-11-28 10:34 | disposition home or self-care (01) ==
LOC: HO.CT 10:33
PROVIDERS: PCP Family Medicine; Visit Provider Internal Medicine Pulmonary Disease
DX: J47.9 Bronchiectasis, uncomplicated (principal)
CPT/HCPCS: 71250

== ENCOUNTER 2021-12-26 08:50 | Outpatient (REF) | payer MEDICARE, SELFPAY ==
--- NOTE | 2021-12-26 17:01 | PFT_ITS ---
FLOWS: FEV1 79% of predicted at 2.33 L. FVC 72% of predicted at 2.93 L. FEV1 to FVC ratio of 0.79. No bronchodilator response except in small to medium airways. LUNG VOLUMES: Total lung capacity 72% of predicted at 4.98 L. Residual volume 82% of predicted at 2.05 L. Slow vital capacity 67% of predicted at 2.93 L. Expiratory reserve volume 94% of predicted at 1.09 L. Diffusion capacity is moderately decreased, diffusion capacity corrects to normal after adjustment for alveolar ventilation. IMPRESSION: Moderate restrictive ventilatory defect with no bronchodilator response except in small to medium airways. MD RONALD Barry/MODL / [id number]
== END 2021-12-26 08:51 | disposition home or self-care (01) ==
LOC: HO.RESP 08:50
PROVIDERS: PCP Family Medicine; Visit Provider Internal Medicine Pulmonary Disease
DX: J44.9 Chronic obstructive pulmonary disease, unspecified (principal)
CPT/HCPCS: 94060; 94727; 94729

== ENCOUNTER 2022-02-15 08:58 | Outpatient (REF) | payer OTHER, MEDICARE, SELFPAY ==
[2022-02-15 10:21] LABS: MANUAL DIFF FLAG NO
[2022-02-15 10:26] LABS: Eosinophils Absolute Auto 0.3 X10*3/uL (0.0-0.4); Eosinophils Percent Auto 7.6 % (0-4); Hematocrit 41.7 % (42.0-52.0); Hemoglobin 13.3 g/dl (14.0-18.0); Imm Gran Abs Auto 0.01 X10*3/uL (0.00-0.03); Imm Gran Pct Auto 0.3 % (0.0-0.4); Lymphocytes Absolute Auto 1.2 X10*3/uL (1.2-4.9); Lymphocytes Percent Auto 31.2 % (20-40); Mean Corpuscular HGB Conc 31.9 g/dl (31.0-36.0); Mean Corpuscular Volume 93.9 fL (80.0-98.0); Mean Platelet Volume 9.9 fL (9.4-12.4); Monocytes Absolute Auto 0.5 X10*3/uL (0.1-1.2); Monocytes Percent Auto 12.1 % (2-11); Neutrophils Absolute Auto 1.8 x10*3/uL (2.0-8.3); Neutrophils Percent Auto 47.8 % (45-73); Platelet Count 230 X10*3/uL (160-400); Red Blood Count 4.44 X10*6/uL (4.60-5.80); Red Cell Distribution Width 14.1 % (11.0-16.0); White Blood Count 3.8 X10*3/uL (4.8-10.8)
[2022-02-15 11:00] LABS: Alanine Aminotransferase 15 U/L (0-40); Albumin Level 4.2 g/dL (3.5-5.0); Alkaline Phosphatase 66 U/L (39-117); Anion Gap 10 (12-20); Aspartate Amino Transferase 22 U/L (5-37); Bilirubin Total 0.6 mg/dL (0.0-1.0); Blood Urea Nitrogen 13 mg/dL (9-16); Calcium 9.6 mg/dL (8.4-10.2); Carbon Dioxide 36 mmol/L (22-29); Chloride 102 mmol/L (96-108); Estimated Glomerular Filt Rate > 60; Glucose Random 72 mg/dL (60-115); Potassium 4.6 mmol/L (3.3-5.1); Sodium 143 mmol/L (135-145); Total Protein 6.7 g/dL (6.5-8.0)
[2022-02-15 11:17] LABS: Prostate Specific Antigen Scr 3.86 ng/mL (<0.05-4.0)
== END 2022-02-15 08:59 | disposition home or self-care (01) ==
LOC: HO.10HDL 08:58
PROVIDERS: Visit Provider Family Medicine
DX: Z12.5 Encounter for screening for malignant neoplasm of prostate (principal); D50.9 Iron deficiency anemia, unspecified; R63.4 Abnormal weight loss
CPT/HCPCS: 36415; 80053; 84153; 85025

== ENCOUNTER → 2022-06-21 11:20 | Outpatient (BNVA) | payer OTHER, SELFPAY | PROVIDERS: PCP Family Medicine; Visit Provider Internal Medicine Pulmonary Disease | DX: J47.9 Bronchiectasis, uncomplicated (principal); Z90.2 Acquired absence of lung [part of] | CPT/HCPCS: 99212 ==

== ENCOUNTER → 2022-08-17 12:38 | Outpatient (BNVA) | payer MEDICARE, SELFPAY | PROVIDERS: PCP Family Medicine; Referring Provider Family Medicine; Visit Provider Internal Medicine Cardiovascular Disease | DX: I45.10 Unspecified right bundle-branch block (principal); I49.9 Cardiac arrhythmia, unspecified | CPT/HCPCS: 93005; 99212 ==

== ENCOUNTER 2022-10-24 10:57 | Outpatient (REF) | payer MEDICARE, OTHER, SELFPAY ==
--- NOTE | ~2022-10-24 | CT_ITS ---
EXAMINATION: CT CHEST WITHOUT CONTRAST CLINICAL INFORMATION: Acquired absence of lung. COMPARISON: CT chest 11/28/2021: Marked elevation of the right hemidiaphragm. Multiple upper lobe ground-glass attenuation nodules, largest measuring 2 x 3 cm in the central left upper lobe. Volume loss to the right middle and right lower lobes and right lower lobe atelectasis. TECHNIQUE: Multidetector volumetric CT imaging of the chest was done. Axial MIP volume rendering provided. Sagittal and coronal reformatted images were obtained. This CT examination was performed using dose optimization techniques as appropriate, variously including the following: *Automated exposure control *Adjustment of mA and/or kV according to patient size (this includes techniques or standardized protocols for targeted exams where dose is matched to indication/reason for exam; i.e. extremities or head) *Use of iterative reconstruction technique DLP: 127.26 mGy-cm FINDINGS: FREIGHT WEIGHER: Marked elevation of the right hemidiaphragm is unchanged. LUNGS: Marked volume loss in the right lung with elevated hemidiaphragm. Some calcified granulomas are present. Previously seen large area of ground-glass attenuation measuring 2 x 3 cm in the left upper lobe is no longer present. All previously seen semisolid right upper lobe nodules have resolved including a 4 mm right upper lobe nodule that had been present previously (prior 7:144) and a 3 mm right upper lobe nodule previously seen (7:169). No new or concerning lung masses are seen. MEDIASTINUM: No mediastinal or hilar lymphadenopathy. CORONARY ARTERY CALCIFICATION: Present. PLEURA: There is no pleural effusion. Calcified pleural plaque is present at the right lung base and is unchanged. No concerning pleural mass or thickening. AXILLA: No lymphadenopathy. UPPER ABDOMEN: Again seen is an area of cortical scarring in the right upper pole (5:63). No adrenal mass is seen. OSSEOUS STRUCTURES: Degenerative changes are present in the spine with biconvex thoracolumbar scoliosis . CT/CT chest wo IV con IMPRESSION: 1. Marked chronic elevation of the right hemidiaphragm with associated volume loss in the right lung. 2. All previously seen semisolid nodules have resolved. 3. No new or concerning lung masses are seen. 4. Calcified pleural plaque at the right lung base unchanged. 5. Scarring right upper pole kidney unchanged. 6. Scoliosis and degenerative changes in the spine with biconvex thoracolumbar scoliosis. Fleischner guidelines were followed.
== END 2022-10-24 10:58 | disposition home or self-care (01) ==
LOC: HO.CT 10:57
PROVIDERS: PCP Family Medicine; Visit Provider Internal Medicine Pulmonary Disease
DX: Z90.2 Acquired absence of lung [part of] (principal)
CPT/HCPCS: 71250

== ENCOUNTER 2022-12-08 09:23 | Outpatient (AMB) | payer MEDICARE, SELFPAY ==
[2022-12-08 09:27] VITALS: BP 122/72; PULSE 84; O2SAT 96; BMI 21.6
--- NOTE | 2022-12-08 09:27 | MHC.OFFVIS ---
Intake Vital Signs 12/08/22 09:27 Height 5 ft 9.5 in Weight 148 lb 1.903 oz BMI 21.6 BP 122/72 Blood Pressure Location Lt brachial Position Sitting Pulse 84 Pulse Source Doppler Pulse Oximetry (%) 96 Oxygen Delivery Method Room Air Intake Visit Reasons: copd Allergies Sulfa (Sulfonamide Antibiotics) [SULFA (SULFONAMIDE ANTIBIOTICS)] Allergy (Severe, Verified 12/08/22 09:30) THROAT SWELLING, DIFF BREATHING, SKIN TURNS PINK HPI copd HPI Details 77-year-old gentleman, nonsmoker, with underlying history of bronchiectasis status post right-sided lobectomy in 1960s at [facility], further complicated by what appears to be right-sided diaphragmatic dysfunction with prior sniff test with unclear results, and right-sided atelectasis.? Previously followed by pulmonology at [facility].? Patient complains of intermittent exacerbations of his bronchiectasis requiring suppressive antibiotic therapy.? Patient continues to do well on current regimen of Anoro, Asmanex, and albuterol MDI and denies any recent exacerbations. His follow-up CT chest shows resolution of previously noted nodules. [facility] Medical History Cardiac arrhythmia COPD (chronic obstructive pulmonary disease) Surgical History History of lobectomy of lung Family History Father No problems noted. Mother No problems noted. Social History Alcohol intake: current Alcohol intake frequency: a few times a week Patient Tobacco Use Status: Never used Tobacco Second Hand Smoke Exposure: No Review of Systems Const Denies daytime sleepiness, Denies excessive sweating, Denies fatigue, Denies fever(s), Denies lethargy, Denies malaise, Denies night sweats, Denies snoring and Denies weight loss Eyes Denies blurry vision and Denies itchy eyes ENT Denies nasal congestion, Denies post nasal drip, Denies sinus pain, Denies sinus pressure and Denies other ( Thrush) Card Denies chest pain, Denies pedal edema, Denies dyspnea, Denies orthopnea and Denies paroxysmal nocturnal dyspnea Resp Denies cough, Denies hemoptysis, Denies excessive phlegm production, Denies dyspnea, Denies snoring and Denies wheezing GI Denies abdominal pain and Denies heartburn Musc Denies myalgias, Denies arthralgias and Denies joint swelling Skin/Breast Denies rash Neuro Denies memory loss and Denies seizure-like activity Psych Denies abnormal sleep pattern, Denies anxiety and Denies memory loss Endo Denies excessive sweating, Denies fatigue and Denies heat intolerance Bacilio/Lymph Denies easy bruising Aller/Immun Denies itchy eyes, Denies seasonal rhinorrhea and Denies wheezing Physical Exam Vital Signs: Last Vital Signs Pulse 84 12/08/22 09:27 BP 122/72 12/08/22 09:27 Pulse Ox 96 12/08/22 09:27 Oxygen Delivery Method Room Air 12/08/22 09:27 BMI result Body Mass Index 21.6 Const General: no acute distress and alert Nutritional Appearance: not obese Orientation/consciousness: Other orientation findings ( oriented) HEENT Head: Yes atraumatic Eyes General: appearance normal, both eyes and all related structures Sclerae: sclerae normal EOM: EOMs intact bilaterally Neck Neck: Yes supple Lymphatic: no lymphadenopathy noted Resp Effort & Inspection: normal respiratory effort and no use of accessory muscles Auscultation: clear to auscultation bilaterally Cardio Rate: regular rate Rhythm: regular rhythm Heart sounds: no gallops, no murmurs and no rubs Skin General skin exam: other ( warm) Extrem General: No clubbing, No cyanosis and No edema Assessment & Plan Assessment & Plan (1) COPD (chronic obstructive pulmonary disease): Code(s): J44.9 - Chronic obstructive pulmonary disease, unspecified Plan: Reasonably well controlled on baseline regimen of Anoro, Asmanex, duo nebs, and albuterol MDI. Continue current regimen. Will refer to Pulmonary Rehab. (2) Status post lobectomy of lung: Code(s): Z90.2 - Acquired absence of lung [part of] (3) Bronchiectasis: Code(s): J47.9 - Bronchiectasis, uncomplicated Plan: No recent exacerbations. Continue to monitor clinically. Orders: Orders Pulmonary Rehab Today J44.9 - Chronic obstructive pulmonary disease, unspecified Coding Level of Care Code Est Pt Level 4 (66046) Diagnoses COPD (chronic obstructive pulmonary disease) J44.9 Status post lobectomy of lung Z90.2 Bronchiectasis J47.9
== END 2022-12-08 09:56 | disposition home or self-care (01) ==
PROVIDERS: PCP Family Medicine; Visit Provider Internal Medicine Pulmonary Disease
DX: J44.9 Chronic obstructive pulmonary disease, unspecified (principal); Z90.2 Acquired absence of lung [part of]
CPT/HCPCS: 99214

== ENCOUNTER → 2022-12-08 09:23 | Outpatient (BNVA) | payer MEDICARE, SELFPAY | PROVIDERS: PCP Family Medicine; Visit Provider Internal Medicine Pulmonary Disease | DX: J44.9 Chronic obstructive pulmonary disease, unspecified (principal); J47.9 Bronchiectasis, uncomplicated; Z90.2 Acquired absence of lung [part of] | CPT/HCPCS: 99212 ==

== ENCOUNTER 2023-02-08 07:15 | Outpatient (REF) | payer MEDICARE, SELFPAY ==
[2023-02-08 07:35] LABS: MANUAL DIFF FLAG NO
[2023-02-08 07:56] LABS: Basophils Percent Auto 1.2 % (0-2); Eosinophils Absolute Auto 0.2 X10*3/uL (0.0-0.4); Eosinophils Percent Auto 5.5 % (0-4); Hematocrit 39.1 % (42.0-52.0); Hemoglobin 12.9 g/dl (14.0-18.0); Imm Gran Abs Auto 0.01 X10*3/uL (0.00-0.03); Imm Gran Pct Auto 0.3 % (0.0-0.4); Lymphocytes Absolute Auto 1.2 X10*3/uL (1.2-4.9); Lymphocytes Percent Auto 34.6 % (20-40); Mean Corpuscular Hemoglobin 29.9 pg (27.0-33.0); Mean Corpuscular Volume 90.7 fL (80.0-98.0); Mean Platelet Volume 9.4 fL (9.4-12.4); Monocytes Absolute Auto 0.4 X10*3/uL (0.1-1.2); Neutrophils Absolute Auto 1.6 x10*3/uL (2.0-8.3); Neutrophils Percent Auto 47.4 % (45-73); Platelet Count 161 X10*3/uL (160-400); Red Blood Count 4.31 X10*6/uL (4.60-5.80); Red Cell Distribution Width 14.5 % (11.0-16.0); White Blood Count 3.4 X10*3/uL (4.8-10.8)
[2023-02-08 08:18] LABS: Alanine Aminotransferase 15 U/L (0-40); Anion Gap 17 (12-20); Aspartate Amino Transferase 23 U/L (5-37); Blood Urea Nitrogen 14 mg/dL (9-16); Carbon Dioxide 26 mmol/L (22-29); Chloride 103 mmol/L (96-108); Estimated Glomerular Filt Rate > 60; Potassium 3.7 mmol/L (3.3-5.1); Sodium 142 mmol/L (135-145)
== END 2023-02-08 07:16 | disposition home or self-care (01) ==
LOC: HO.LAB 07:15
PROVIDERS: PCP Family Medicine; Visit Provider Family Medicine
DX: I10 Essential (primary) hypertension (principal); D50.9 Iron deficiency anemia, unspecified; E78.00 Pure hypercholesterolemia, unspecified; Z79.899 Other long term (current) drug therapy
CPT/HCPCS: 36415; 80051; 82550; 82565; 84450; 84460; 84520; 85025

== ENCOUNTER 2023-03-12 07:48 | Outpatient (REF) | payer MEDICARE, SELFPAY ==
--- NOTE | ~2023-03-12 | FL_ITS ---
EXAMINATION: XR FLUOROSCOPY UPPER GI WITH AIR CLINICAL INFORMATION: Dysphagia, achalasia. Parkinson's COMPARISON: None TECHNIQUE: Fluoroscopic air contrast upper GI examination was performed utilizing standard techniques with thin and thick barium and effervescent granules. Numerous spot images were obtained. FINDINGS: Lateral cine images of the oropharynx and hypopharynx demonstrate normal swallow mechanism with normal epiglottic inversion and soft palate elevation. There is trace laryngeal penetration of the thick barium to level of the vocal cords. No tracheal aspiration is seen. No nasopharyngeal reflux present. Hypopharyngeal structures appear normal without evidence of mass or diverticulum. 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 Dual and single contrast images of the esophagus demonstrate normal caliber, contour, and mucosal pattern. No evidence of stricture, mass, or ulcerations identified. Esophageal peristalsis was mildly disorganized. There is mild to moderate narrowing of the lower esophageal sphincter. No evidence of hiatus hernia identified. No significant gastroesophageal reflux was seen during the course of the examination and on reflux views. Dual contrast and single contrast images of the stomach demonstrated a normal contour. The stomach is positioned horizontally. Evaluation of the mucosa is limited due to lack of distention of the stomach from poor tolerance of the effervescent granules. The gastric mucosal folds appear thickened, possibly artifactually. There are a few small areas of pooling in the gastric body and fundus that may represent small superficial ulcers. Stable bulbous appearance of the antrum with distal narrowing approaching the pyloric channel. This is unchanged when compared with 2017. Single and air-contrast images of the duodenal bulb demonstrate no abnormality. The duodenal sweep has a normal appearance, course, and mucosal fold appearance. There is a small second segment duodenal diverticulum. The imaged proximal jejunum has apparent fold thickening, which could be related to technique, or conversely, relate to a proximal enteritis. Marked elevation of the right hemidiaphragm. FLUOROSCOPY TIME: 7 minutes 19 seconds Number of Spot Images: 9 Number of Cine: 15 DOSE AREA PRODUCT: 3579 uGy-m2 (microgray-meter squared) FL/FL barium swallow IMPRESSION: 1. Trace laryngeal penetration of the thick barium to level the vocal cords. No tracheal aspiration is seen. 2. 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 This is likely contributing to the patient's dysphagia. 3. Mild narrowing of the lower esophageal sphincter, likely due to mild achalasia. 4. Mildly disorganized esophageal motility. 5. Evaluation of the gastric mucosa is limited due to lack of distention from poor tolerance of the effervescent granules, however, the gastric mucosal folds appear thickened. There are a few small areas of pooling of contrast in the gastric body and fundus. These findings may represent erosive gastritis. Recommend correlation with EGD. This procedure was performed by Hieu Rodas PA-C, and supervised by Dr. Esparza
== END 2023-03-12 07:49 | disposition home or self-care (01) ==
LOC: HO.XRAY 07:48
PROVIDERS: PCP Family Medicine; Visit Provider Family Medicine
DX: R13.10 Dysphagia, unspecified (principal); K22.0 Achalasia of cardia
CPT/HCPCS: 74220

== ENCOUNTER → 2023-03-12 07:49 | Outpatient (BNV) | payer MEDICARE, SELFPAY | PROVIDERS: PCP Family Medicine; Visit Provider Radiology Diagnostic Radiology | DX: R13.10 Dysphagia, unspecified (principal) | CPT/HCPCS: 74221 ==

== ENCOUNTER 2023-03-19 14:25 | Emergency (ER) | payer MEDICARE, SELFPAY ==
--- NOTE | ~2023-03-19 | CT_ITS ---
EXAMINATION: CT HEAD WITHOUT CONTRAST CLINICAL INFORMATION: Fall COMPARISON: None TECHNIQUE: Contiguous axial imaging was performed from the skull base to vertex without intravenous administration of contrast. This CT examination was performed using dose optimization techniques as appropriate, variously including the following: *Automated exposure control *Adjustment of mA and/or kV according to patient size (this includes techniques or standardized protocols for targeted exams where dose is matched to indication/reason for exam; i.e. extremities or head) *Use of iterative reconstruction technique DLP: 1001 mGy-cm FINDINGS: There is no evidence of acute intracranial hemorrhage or territorial infarction. Chronic white matter small vessel ischemic changes. Mild cerebral atrophy. Bilateral basal ganglial calcifications. No abnormal mass effect or midline shift is seen. Ward to white matter differentiation is well preserved. No extra-axial fluid collections are identified. The ventricles are normal in size. There is no abnormal attenuation within the brain parenchyma. Soft tissue swelling overlying the right frontal bone without underlying bony defect. The osseous structures and soft tissues are normal. Trace fluid in the right mastoid air cells. The mastoid air cells and visualized portions of the paranasal sinuses are well aerated. Atherosclerotic calcifications. CT/CT cervical spine wo IV con IMPRESSION: 1. No acute intracranial pathology. 2. Chronic white matter small vessel ischemic changes. 3. Soft tissue swelling overlying the right frontal bone without underlying bony defect. EXAMINATION: Noncontrast CT scan of the cervical spine. INDICATION: Fall COMPARISON: None. TECHNIQUE: Helical, multidetector axial images were obtained from the occiput to the upper thorax. Coronal and sagittal reformats of the cervical spine were provided for interpretation. DLP: 1001 mGy-cm FINDINGS: No acute fractures or dislocations of the cervical spine are seen. Very slight grade 1 anterolisthesis of C4 on C5. Multilevel degenerative changes Anatomic alignment and positioning of the vertebral bodies and posterior elements is noted. The atlantoaxial joint and craniovertebral articulations are normal without evidence of subluxation. There is no prevertebral soft tissue swelling. Biapical pleural parenchymal lung scarring IMPRESSION: 1. No acute visible fracture or dislocation. 2. Very slight grade 1 anterolisthesis of C4 on C5. 3. Multilevel degenerative changes.
--- NOTE | ~2023-03-19 | XR_ITS ---
EXAMINATION: XR HAND/WRIST, RIGHT CLINICAL INFORMATION: Fall COMPARISON: None TECHNIQUE: PA, lateral, oblique, and scaphoid views of the right hand and wrist. FINDINGS: No fractures. Ulnar positive variance measures 3 mm with articular cortical sclerosis and remodeling at the distal ulnar margin and ulnar margin of the lunate, consistent with ulnocarpal abutment. There is severe osteoarthritis of the first CMC joint with marked nonuniform joint space narrowing, marginal osteophytes, articular cortical irregularity, and articular sclerosis. Moderate to severe osteoarthritis also present in the index finger MCP joint, the thumb interphalangeal joint, and the long finger PIP joint. More mild to moderate multifocal osteoarthritis is present at the MCP and interphalangeal joints. No erosions. Bones are osteopenic. No periostitis. Chondrocalcinosis is present at the TFCC. XR/XR hand wrist RT IMPRESSION: 1. No acute fracture or malalignment. 2. Multifocal osteoarthritis in the right hand and wrist, most severe at the first CMC joint. 3. 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
[2023-03-19 14:35] VITALS: BP 138/78; PULSE 88; O2SAT 94
[2023-03-19 14:49] VITALS: BP 118/67; PULSE 77; RESP 16; TEMP 37; O2SAT 98; BMI 21.4
--- NOTE | 2023-03-19 15:18 | ED.FALL ---
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 Tetanus unknown. Denies LOC, back pain, CP/SOB, abdominal pain, numbness/tingling, incontinence, vision change/loss MD complaint: fall Related Data Home Medications Medication Instructions Recorded Confirmed acetaminophen 120 mg-codeine 12 5 ml PO Q8H 08/17/20 08/17/22 mg/5 mL (5 mL) oral solution atorvastatin 40 mg tablet 40 mg PO BEDTIME 08/17/20 08/17/22 cyclobenzaprine 10 mg tablet 10 mg PO BEDTIME 08/17/20 08/17/22 duloxetine 60 mg capsule,delayed 60 mg PO DAILY 08/17/20 08/17/22 release levalbuterol tartrate 45 2 inh inhalation Q6H 08/17/20 08/17/22 mcg/actuation aerosol inhaler mometasone 200 mcg/actuation HFA 1 puff inhalation BEDTIME 08/17/20 08/17/22 aerosol inhaler (Asmanex HFA) tamsulosin 0.4 mg capsule 0.4 mg PO BEDTIME 08/17/20 08/17/22 temazepam 15 mg capsule 15 mg PO BEDTIME PRN 08/17/20 08/17/22 metoprolol succinate 25 mg 25 mg PO BEDTIME 08/18/21 08/17/22 tablet,extended release 24 hr coenzyme Q10 100 mg capsule 300 mg PO DAILY 10/27/21 08/17/22 (CoQ-10) dicyclomine 20 mg tablet 20 mg PO BID 10/27/21 08/17/22 docusate sodium 50 mg capsule 50 mg PO DAILY 10/27/21 08/17/22 esomeprazole magnesium 40 mg 40 mg PO DAILY 10/27/21 08/17/22 capsule,delayed release umeclidinium 62.5 mcg-vilanterol 1 inh inhalation DAILY 10/27/21 08/17/22 25 mcg/actuation powdr for inhalation (Anoro Ellipta) diltiazem HCl 180 mg 180 mg PO DAILY 06/21/22 08/17/22 capsule,extended release 24 hr guaifenesin 600 mg tablet, 600 mg PO BID 06/21/22 08/17/22 extended release 12 hr Previous Rx's Medication Instructions Recorded ipratropium 0.5 mg-albuterol 3 mg 3 ml inhalation Q4-6H PRN wheezing 12/06/21 (2.5 mg base)/3 mL nebulization 30 days #180 mL soln bacitracin 500 unit/gram topical 1 appl topical BID #30 grams 03/19/23 ointment Allergies Allergy/AdvReac Type Severity Reaction Status Date / Time Sulfa (Sulfonamide Allergy Severe THROAT Verified 12/08/22 09:30 Antibiotics) SWELLING, [SULFA (SULFONAMIDE DIFF ANTIBIOTICS)] BREATHING, SKIN TURNS PINK Review of Systems Review of Systems: Constitutional: No Fever, No Chills ENT/Mouth: No Ear Pain, No Nasal Congestion, No sore throat, No Rhinorrhea, No Swallowing Difficulty Cardiovascular: No Chest Pain, No SOB Respiratory: No Cough, No Sputum Gastrointestinal: No Nausea, No Vomiting, No Abdominal pain Musculoskeletal: +joint pain, +Myalgia , +Joint Swelling Skin: +Skin abrasions, No rash Neuro: No Weakness, No Numbness, No Paresthesias, +PORRAS Yes all other systems are reviewed and are negative Constitutional: Constitutional: Reports as per HPI Neurologic: Denies Abnormal speech present [facility] Past Medical History Attestation statement: The following information was validated with the patient. Source: old records reviewed Medical History COPD (chronic obstructive pulmonary disease) Cardiac arrhythmia Surgical History History of lobectomy of lung Family History Family History Father No problems noted. Mother No problems noted. Social History Social History Alcohol intake: current Alcohol intake frequency: a few times a week Patient Tobacco Use Status: Never used Tobacco Smoked in Last 30 Days: No Second Hand Smoke Exposure: No Use of substances other than those prescribed or required for medical reasons: No Advance Directives: No Advance Directives Information Provided: No Physical Exam Vital Signs: Vital Signs: Last Vital Signs Temp 98.6 F 03/19/23 14:49 Pulse 77 03/19/23 14:49 Resp 16 03/19/23 16:06 BP 118/67 03/19/23 14:49 Pulse Ox 98 03/19/23 14:49 O2 Del Method Room Air 03/19/23 14:49 BMI result Body Mass Index 21.4 Const: General: cooperative, no acute distress, alert and awake Orientation/consciousness: patient oriented x3 Limitations: no limitations HEENT: Other: + abrasions noted to right frontal scalp and right periorbital region. No palpable step-off. EOMs intact without entrapment or pain. No ocular involvement Head: Yes normal to inspection, No Hoffmann's sign and No raccoon eyes Ears: hearing grossly normal bilaterally General nose exam: Normal external nose present Face and sinus: Yes normal facial exam Mouth: Normal oral and palatal mucosa present Throat: Yes posterior oropharynx normal and Yes uvula midline Eyes: General: appearance normal, both eyes and all related structures Pupils: Equal, round and reactive pupils present EOM: EOMs intact bilaterally Neck: Other: C-collar in place. No reproducible tenderness or midline spinous tenderness Neck: Yes normal visual inspection and Yes no meningeal signs Chest: Chest palpation & inspection: normal inspection of the chest and no crepitus Resp: Effort & Inspection: normal respiratory effort and no respiratory distress Auscultation: clear to auscultation bilaterally Cardio: Rate: regular rate Heart sounds: S1 normal heart sound present and S2 normal heart sound present Peripheral pulses: Peripheral pulses 2+ throughout GI: Inspection: Yes normal to inspection Palpation (GI): Soft to palpation, nontender, no guarding and not rigid Back/Spine/Pelvis: Other: No midline cervical/thoracic/lumbar spinous tenderness/step-off or deformity Skin: Rashes: no rashes Neuro: General: patient oriented x3, tone normal, moves all extremities, no meningeal signs, no focal motor deficits and CN's II-XI intact bilaterally Cranial nerves: Yes CN's II-XII intact bilaterally and Yes Equal, round and reactive pupils present Cognition (Neuro): normal cognition Speech: No Abnormal speech present Motor exam (neuro): 5/5 motor strength present throughout and no tremor noted Extrem: Other: Right shoulder with superficial abrasion/ecchymosis. Nontender. Full range of motion intact. Neurovascularly intact distally Right 2nd and 3rd MCP with noted swelling and mild tenderness. Superficial laceration to 3rd MCP. Bleeding controlled. [id number] opposition intact. 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 No red flag symptoms. No focal neuro deficits. Physical exam as noted above. Rule out fracture, ICH, subdural hematoma, concussion. Low suspicion for intrathoracic/intra-abdominal bleeding/hematoma Plan: Head/C-spine CT, x-rays, TDAP Differential Diagnosis Differential Diagnoses: The differential diagnosis associated with the presentation includes As above Admission/Observation Consideration of admission/observation: Escalation of care including admission/observation considered Lab Data [facility] Lab Attestation statement: I reviewed the patient's lab results. Independent Interpretation I performed an independent interpretation of an: Plain X-Ray and CT Scan Radiology Impression Discussion of test interpretation with radiology: I have reviewed the radiologist's reading. Independent Historian Clinical information obtained from an independent historian. History obtained from or confirmed by: Spouse, EMS and Other (daughter) External Record Review External record reviewed: Inpatient record, Office record, Outpatient record, Prior outpatient labs, Prior outpatient radiology, Primary care record and Outside ED record Tests considered The following testing was considered but not selected: As above Prescription Management I considered prescription management with: Pain Medication and Antibiotic Discharge Plan Discharge Clinical Impression: Head injury, Abrasion, Osteoarthritis Patient Disposition: Home, Self-Care Instructions: Osteoarthritis (DC), Head Injury (ED), Abrasion (ED) Additional Instructions: The CT scan of her head and neck do not show any acute findings. You do have soft tissue swelling over your right frontal bone and some osteoarthritis of her neck There hand shows osteoarthritis. No fracture Ice painful areas Apply bacitracin or Neosporin to your wounds Keep clean, gentle water and soap If areas begins look infected, or red there is pus drainage fever return to the ED line it is normal for you to have headaches, nausea/vomiting and some lightheadedness after head injury, however this is persistent or worsening, you have recurrent falls, repetitive nausea/vomiting or unremitting headache return to the ED Prescriptions: New bacitracin 500 unit/gram ointment 1 appl topical BID Qty: 30 0RF No Action ipratropium-albuterol 0.5 mg-3 mg(2.5 mg base)/3 mL solution for nebulization 3 ml inhalation Q4-6H PRN (Reason: wheezing) 30 Days Qty: 180 6RF duloxetine 60 mg capsule,delayed release(DR/EC) 60 mg PO DAILY tamsulosin 0.4 mg capsule 0.4 mg PO BEDTIME Asmanex HFA 200 mcg/actuation HFA aerosol inhaler 1 puff inhalation BEDTIME atorvastatin 40 mg tablet 40 mg PO BEDTIME levalbuterol tartrate 45 mcg/actuation HFA aerosol inhaler 2 inh inhalation Q6H temazepam 15 mg capsule 15 mg PO BEDTIME PRN acetaminophen-codeine 120 mg-12 mg /5 mL (5 mL) solution 5 ml PO Q8H cyclobenzaprine 10 mg tablet 10 mg PO BEDTIME docusate sodium 50 mg capsule 50 mg PO DAILY dicyclomine 20 mg tablet 20 mg PO BID esomeprazole magnesium 40 mg capsule,delayed release(DR/EC) 40 mg PO DAILY coenzyme Q10 [CoQ-10] 100 mg capsule 300 mg PO DAILY Anoro Ellipta 62.5-25 mcg/actuation blister with device 1 inh inhalation DAILY metoprolol succinate 25 mg tablet extended release 24 hr 25 mg PO BEDTIME guaifenesin 600 mg tablet extended release 12hr 600 mg PO BID diltiazem HCl 180 mg capsule,extended release 24hr 180 mg PO DAILY Referrals: Randy Bradshaw MD [Primary Care Provider] - 5 days
--- OUTSIDE RECORDS SUMMARY | 2023-03-19 15:22 | XMS_ITS | Patient Health Record ---
Author Name Unknown Organization [facility] Address [address] [place] [address] Care Team Providers Care Mohel Name Role Phone Augustine JOHNSON, Randy Primary Care Provider Unavailab Romero Matthew Unavailable [phone] Stephanie JOHNSON, Belia Unavailable Unavailable ALLERGIES Allergen (clinical drug ingredient) Drug/Non Drug Allergy documented on EMR Reaction Allergy Type Onset Date Status Sulfa Unknown Drug Allergy Active REASON FOR REFERRAL No Information MEDICATIONS Medication SIG (Take, Route, Frequency, Duration) Notes Start Date End Date Status Digestive Enzymes - as directed Orally Active Cyclobenzaprine HCl 10 MG 1 tablet Orall y twice a day Active Anoro Ellipta 62.5-25 MCG/INH 1 puff Inh alation Once a day Active Atorvastatin Calcium 40 MG 1/2 tablet Or ally Once a day Active Temazepam 15 MG 1 capsule at bedtime as needed Orally Once a day Active FeroSul 325 (65 Fe) MG TAKE 1 TABLET BY MOUTH EVERY DAY FOR IRON DEFICIENCY ANEMIA Oral for 30 Active guaiFENesin ER 600 MG 1 tablet as needed Orally every 12 hrs Active Esomeprazole Magnesium 40 MG 1 capsule O rally twice a day Active Tamsulosin HCl 0.4 MG 2 capsules Orally Once a day Active Metoprolol Succinate ER 25 MG TAKE 1 TAB LET BY MOUTH AT BEDTIME Oral for 30 Active Cyanocobalamin 1000 MCG 1 tablet Orally Once a day for 30 day(s) Active Asmanex 120 Metered Doses 22 0 MCG/INH 2 puff in the evening Inhalation Once a day Active DULoxetine HCl 60 MG 2 capsule Orally On ce a day Active Levalbuterol Tartrate 45 MCG/ACT 1 puff as needed Inhalation every 6 hrs Active CoQ10 30 MG as directed Orally Active Docusate Sodium 50 MG 2 capsule as neede d Orally twice a day Active Codeine Sulfate 30 MG 1 tablet at bedtim e Orally Once a day Active dilTIAZem HCl ER Beads 180 MG 1 capsule Orally Once a day for 30 day(s) Active Dicyclomine HCl 20 MG 1 tablet Orally Th ree times a day for 30 day(s) Active IMMUNIZATIONS Vaccine Route Administration Date Status Comme nts Flu vaccine no Preserv 3 and > Unknown 11/25/2013 Admin istered Flu vaccine no Preserv 3 and > Unknown 11/03/2014 Admin istered Flu vaccine no Preserv 3 and > Unknown 12/03/2014 Admin istered Influenza Unknown 10/13/2020 Administered SOCIAL HISTORY Sex Assigned At : Social History Observation Description Sex Assigned At Unknown PROBLEMS Problem Type ICD Code Onset Dates Problem Status W/U Status Risk SNOMED Code Notes Problem Gastro-esophageal reflux disease without esophagitis (K21.9) Active confirmed 774344567 Problem History of adenomatous polyp of colon (Z86.010) Active confirmed History o f adenomatous polyp of colon (913968286) Problem Irritable bowel syndrome without diarrhea (K58.9) Active confirmed 36929146 Problem Melena (K92.1) Active confirmed 3081914 Problem Gastroesophageal reflux disease (K21.9) Active confirmed Gastroesophagea l reflux disease (270048464) Problem Barretts esophagus without dysplasia (K22.70) Active confirmed 486213482 Problem Hiatal hernia (K44.9) Active confirmed Hiatal hernia (80339696) Problem Anemia (D64.9) Active confirmed Anemia (988276531) Problem Lower GI hemorrhage (K92.2) Active confirmed 07227351 Problem Abnormal finding on GI tract imaging (R93.3) Active confirmed 845085162 Problem Abnormal CT scan, colon (R93.3) Active confirmed 131531911 Problem Gastritis (K29.70) Active confirmed Gas tritis (0294106) Problem 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) Active confirmed Goyal esophag us (193718593) Problem Diverticulosis of colon (K57.30) Active confirmed Diverticulosi s of colon (939859140) Problem Anemia due to acute blood loss (D62) Active confirmed 190221935 PLAN OF TREATMENT Future Test Test Name Order Date COLONOSCOPY 12/03/2014 UPPER GI ENDOSCOPY 02/02/2021 COLONOSCOPY 02/02/2021 Insurance Providers Payer Name Payer Address Payer Phone Subscriber Number Group Number Insured Name Patient Relationship to Insured Coverage Start Date Coverage End Date MEDICARE OF [place] [address] [place] [address] [id number] BURKE PEDROZA Self - patient is the insured [employer] ATT[employer] CLAIMS [address] [place] [address] [phone] [id number] BURKE PEDROZA Self - patient is the insured MEDICAL (GENERAL) HISTORY Medical History History ICD Code Colonoscopy 04-21-2008--no co litis/no dysplasia/no adenomas--sigmoid diverticulosis and internal hemorrhoids GERD and Goyal's esophagus --last EGD in 07/2011-neg dysplasia-only tiny area of Goyal's noted and a small hiatal hernia Question of hx of Crohn's co litis-has had 2 colonoscopies with me that have been negative for Crohn's, including the terminal ileum Hyperlipidemia Asthma/COPD/bronchiectasis Glaucoma Negative cardiac catheterization in 2008 - Dr. Mcfadden Denies NH,DM,CVA,renal disease Spinal stenosis and scoliosis-goes to pa in clinic-on chronic pain meds CT scan of the chest in 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 Proctor from thoracic surgery who seems to think the problem is that of a paralyzed right hemidiaphragm and not reflective of any type of hernia-he did not think the patient required surgery of any kind as he did not think he was having any particular symptoms from this IBS/constipation Hospitalization in October 2014 for lower GI bleeding and possible diverticulitis or ischemic colitis Colonoscopy in February was negative except for diverticulosis and hemorrhoids Colonoscopy 01/2021 with mul tiple tubular adenomas removed from the ascending colon EGD 01/2021 with a mod-sized HH, small area of Goyal's esophagus with biopsies negative for dysplasia Surgical History Surgery Date(Month/Year) Appendectomy/exp. laparotomy in 1976 with the finding of the ? of Crohn's disease Right lower lobe lobectomy for bronchiec tasis Right inguinal hernia surgery Left hand/wrist surgery
[2023-03-19 16:06] VITALS: RESP 16
--- NOTE | 2023-03-19 16:07 | PC.NURSE ---
Pt is a&ox4 coming in after having a trip and fall, denies loc -thinners. reporting hitting head on floor, does not use cane or walker at baseline.
[2023-03-19] MEDS: Diphth,Pertus(ACell),Tet Adult 0.5 ML SYRINGE IM (17:04)
== END 2023-03-19 17:48 | disposition home or self-care (01) ==
PROVIDERS: Emergency Provider Emergency Medicine; PCP Family Medicine
DX: S00.81XA Abrasion of other part of head, initial encounter (principal); S60.511A Abrasion of right hand, initial encounter; S40.211A Abrasion of right shoulder, initial encounter; R51.9 Headache, unspecified; M54.2 Cervicalgia; M79.601 Pain in right arm; W01.10XA Fall on same level from slipping, tripping and stumbling with subsequent striking against unspecified object, initial encounter; Y93.9 Activity, unspecified; Y92.9 Unspecified place or not applicable; Y99.8 Other external cause status; Z79.899 Other long term (current) drug therapy; Z23 Encounter for immunization
CPT/HCPCS: 70450; 72125; 73110; 73130; 90471; 90715; 99284

== ENCOUNTER 2023-10-08 11:43 | Inpatient (IN) | payer MEDICARE, SELFPAY ==
[2023-10-08] VITALS (27 sets, daily range): BP systolic 88–168; BP diastolic 60–94; PULSE 83–109; RESP 14–20; TEMP 36.4–37.2; O2SAT 94–100; BMI 22.6
--- NOTE | ~2023-10-08 | CT_ITS ---
EXAMINATION: CT ABDOMEN AND PELVIS WITHOUT AND WITH CONTRAST CLINICAL INFORMATION: Diverticular bleed COMPARISON: CTA abdomen and pelvis January 27, 2021 TECHNIQUE: Multidetector volumetric imaging was performed of the abdomen and pelvis before and after the IV administration of 85 mL of Omnipaque 350 intravenous contrast. Sagittal and coronal reformatted images were obtained on the technologist's workstation. This CT examination was performed using dose optimization techniques as appropriate, variously including the following: *Automated exposure control *Adjustment of mA and/or kV according to patient size (this includes techniques or standardized protocols for targeted exams where dose is matched to indication/reason for exam; i.e. extremities or head) *Use of iterative reconstruction technique DLP: 1237 mGy-cm FINDINGS: LUNG BASES: There is marked elevation of the right hemidiaphragm . Coronary artery calcium is present. LIVER, GALLBLADDER, AND BILIARY TREE: The liver is normal in size, shape, and attenuation. No focal hepatic lesion or biliary ductal dilatation is present. The gallbladder is unremarkable with no evidence of radiopaque gallstones, gallbladder wall thickening, or obvious pericholecystic inflammatory changes. PANCREAS: Unremarkable SPLEEN: Unremarkable ADRENAL GLANDS: Unremarkable KIDNEYS AND URETERS: The kidneys are normal in size, shape, and attenuation with the exception of an area of scarring in the right upper pole. No hydronephrosis, hydroureter, or calculi seen. Multiple bilateral small benign Bosniak class I renal cysts are noted which require no additional imaging or follow-up. No solid renal masses are seen. No perinephric stranding. BLADDER: Unremarkable GASTROINTESTINAL TRACT: Moderate colonic diverticulosis is present most prominent within the sigmoid without evidence of diverticulitis. There is no evidence of active GI bleeding with no contrast seen accumulating in the bowel lumen. The small and large bowel are otherwise unremarkable. The appendix is not seen but there is no evidence of appendicitis. ABDOMINAL WALL: No significant hernia is appreciated. LYMPH NODES: Normal VASCULAR: Calcific atherosclerotic changes are present in the aorta and iliofemoral vessels. There is no evidence of an abdominal aortic aneurysm. PELVIC VISCERA: Unremarkable OSSEOUS STRUCTURES: There is a lumbar scoliosis convex to the right. No bony destructive lesions are seen. Degenerative changes are present in the spine. CT/CT gi bleed abd pel wo/w IVcon IMPRESSION: 1. No evidence of active GI bleeding. 2. Colonic diverticulosis without diverticulitis. 3. Other incidental findings described above. Fleischner guidelines were followed. Electronically signed by: Javier Mike MD 10/08/2023 06:09 PM EDT RP
--- NOTE | 2023-10-08 12:11 | ED.ABDPAIN ---
HPI - Abdominal Pain General Chief Complaint: GI Bleed Stated Complaint: rectal bleeding Time Seen by Provider: 10/08/23 11:55 Source: patient Mode of arrival: ambulatory Limitations: no limitations History of Present Illness ED Provider: Miriam SURESH HPI narrative: 78-year-old male history of diverticular bleeds, COPD, status post lobectomy of lung, Crohn's disease, hiatal hernia, bronchiectasis, cardiac arrhythmia, right-sided diaphragmatic paralysis presenting to the emergency department complaints of left lower quadrant pressure and bright red blood per rectum since this morning he reports he has had 2 episodes of bright red blood per rectum he reports when he relaxes his rectal muscles blood comes pouring out without any stool, dark red with clots, filling the toilet seat. He had something similar to this happened to him about 3 years ago. He is feeling slightly lightheaded. He is currently in a cervical collar due to a C1 fracture that happened a few months ago. Patient just feels tired. Denies blunt trauma to the abdomen. Denies fevers, chills, chest pain, shortness of breath, nausea, headache, vision changes, dizziness, weakness Related Data Home Medications ?Medication ?Instructions ?Recorded ?Confirmed acetaminophen 120 mg-codeine 12 5 ml PO Q8H 08/17/20 08/17/22 mg/5 mL (5 mL) oral solution atorvastatin 40 mg tablet 40 mg PO BEDTIME 08/17/20 08/17/22 cyclobenzaprine 10 mg tablet 10 mg PO BEDTIME 08/17/20 08/17/22 duloxetine 60 mg capsule,delayed 60 mg PO DAILY 08/17/20 08/17/22 release levalbuterol tartrate 45 2 inh inhalation Q6H 08/17/20 08/17/22 mcg/actuation aerosol inhaler mometasone 200 mcg/actuation HFA 1 puff inhalation BEDTIME 08/17/20 08/17/22 aerosol inhaler (Asmanex HFA) tamsulosin 0.4 mg capsule 0.4 mg PO BEDTIME 08/17/20 08/17/22 temazepam 15 mg capsule 15 mg PO BEDTIME PRN 08/17/20 08/17/22 metoprolol succinate 25 mg 25 mg PO BEDTIME 08/18/21 08/17/22 tablet,extended release 24 hr coenzyme Q10 100 mg capsule 300 mg PO DAILY 10/27/21 08/17/22 (CoQ-10) dicyclomine 20 mg tablet 20 mg PO BID 10/27/21 08/17/22 docusate sodium 50 mg capsule 50 mg PO DAILY 10/27/21 08/17/22 esomeprazole magnesium 40 mg 40 mg PO DAILY 10/27/21 08/17/22 capsule,delayed release umeclidinium 62.5 mcg-vilanterol 1 inh inhalation DAILY 10/27/21 08/17/22 25 mcg/actuation powdr for inhalation (Anoro Ellipta) diltiazem HCl 180 mg 180 mg PO DAILY 06/21/22 08/17/22 capsule,extended release 24 hr guaifenesin 600 mg tablet, 600 mg PO BID 06/21/22 08/17/22 extended release 12 hr Previous Rx's ?Medication ?Instructions ?Recorded ipratropium 0.5 mg-albuterol 3 mg 3 ml inhalation Q4-6H PRN wheezing 12/06/21 (2.5 mg base)/3 mL nebulization 30 days #180 mL soln bacitracin 500 unit/gram topical 1 appl topical BID #30 grams 03/19/23 ointment Allergies Allergy/AdvReac Type Severity Reaction Status Date / Time Sulfa (Sulfonamide Allergy Severe THROAT Verified 10/08/23 12:05 Antibiotics) SWELLING, [SULFA (SULFONAMIDE DIFF ANTIBIOTICS)] BREATHING, SKIN TURNS PINK Review of Systems Review of Systems Yes all other systems are reviewed and are negative PMFSH Past Medical History Attestation statement: The following information was validated with the patient. Source: old records reviewed and nursing notes reviewed Medical History COPD (chronic obstructive pulmonary disease) Cardiac arrhythmia Surgical History History of lobectomy of lung Family History Family History Father No problems noted. Mother No problems noted. Social History Social History Alcohol intake: current Alcohol intake frequency: a few times a week Patient Tobacco Use Status: Never used Tobacco Second Hand Smoke Exposure: No Advance Directives: Yes Advance Directives Information Provided: No Advance Directives on File: No Physical Exam ED Vital Signs: Vital Signs - 24 hr 10/08/23 12:02 10/08/23 12:12 10/08/23 12:15 Temperature Pulse Rate 104 H 99 Respiratory Rate 18 18 Blood Pressure 88/64 L 104/74 Pulse Oximetry 95 Oxygen Delivery Method Nasal Cannula Nasal Cannula Oxygen Flow Rate 2 10/08/23 13:08 10/08/23 13:16 10/08/23 13:21 Temperature 97.7 F Pulse Rate 109 H 104 H 105 H Respiratory Rate 18 18 20 Blood Pressure 120/75 101/60 101/60 Pulse Oximetry 100 100 100 Oxygen Delivery Method Nasal Cannula Nasal Cannula Nasal Cannula Oxygen Flow Rate 2 2 2 10/08/23 13:27 10/08/23 13:29 10/08/23 13:39 Temperature Pulse Rate 101 H 99 98 Respiratory Rate 18 18 18 Blood Pressure 116/71 114/72 111/78 Pulse Oximetry 96 98 100 Oxygen Delivery Method Nasal Cannula Nasal Cannula Nasal Cannula Oxygen Flow Rate 2 2 2 10/08/23 13:45 10/08/23 13:46 10/08/23 13:47 Temperature 97.7 F Pulse Rate 98 94 95 Respiratory Rate 18 18 18 Blood Pressure 111/78 108/74 108/74 Pulse Oximetry 99 100 100 Oxygen Delivery Method Nasal Cannula Nasal Cannula Oxygen Flow Rate 2 2 10/08/23 13:50 10/08/23 13:53 10/08/23 13:55 Temperature 98.7 F 98 F 98.0 F Pulse Rate 96 98 98 Respiratory Rate 18 16 16 Blood Pressure 108/74 111/78 108/74 Pulse Oximetry Oxygen Delivery Method Oxygen Flow Rate 10/08/23 14:10 10/08/23 14:15 10/08/23 14:19 Temperature 97.9 F 97.8 F 97.8 F Pulse Rate 91 92 92 Respiratory Rate 18 18 16 Blood Pressure 137/83 130/73 130/72 Pulse Oximetry 100 100 Oxygen Delivery Method Nasal Cannula Nasal Cannula Oxygen Flow Rate 2 10/08/23 14:25 10/08/23 14:38 10/08/23 14:49 Temperature 97.9 F 98.0 F Pulse Rate 90 93 90 Respiratory Rate 16 16 18 Blood Pressure 134/82 140/86 H 130/79 Pulse Oximetry 100 100 Oxygen Delivery Method Nasal Cannula Nasal Cannula Oxygen Flow Rate 2 2 10/08/23 14:54 10/08/23 15:41 10/08/23 15:56 Temperature 98.9 F 97.8 F Pulse Rate 83 85 84 Respiratory Rate 16 18 17 Blood Pressure 130/79 154/88 H 154/88 H Pulse Oximetry 98 95 Oxygen Delivery Method Nasal Cannula Room Air Oxygen Flow Rate 4 10/08/23 16:54 10/08/23 18:00 Temperature 97.5 F Pulse Rate 88 90 Respiratory Rate 16 18 Blood Pressure 168/94 H 146/87 H Pulse Oximetry 98 100 Oxygen Delivery Method Nasal Cannula Nasal Cannula Oxygen Flow Rate 4 4 BMI result Body Mass Index 22.6 vss Appearance: Alert.? Oriented X3.? No acute distress.? Head: Normocephalic, atraumatic, no step-offs or deformities Eyes: Pupils equal, round and reactive to light.? CVS: Normal heart rate and rhythm.? Pulses normal.? Respiratory: No respiratory distress.? Breath sounds normal.? Abdomen: Soft and nontender.? Skin: Skin warm and dry.? Normal skin color.? Normal skin turgor.? Extremities: No lower extremity edema.? No calf ttp. 5/5 strength to bilateral upper and lower extremities Neuro: Oriented X 3.? No motor deficit.? No sensory deficit. CN 2-12 intact Course Reevaluation(s) Reevaluation #1: CBC with a normocytic anemia hemoglobin 9.6 hematocrit 29.6, chemistry with low magnesium 1.4 IV Mag ordered. Calcium also low. Patient is blood type A positive antibody screen negative, 3 units packed red blood cells ordered at this time as I was just called to the bedside and patient is having large amounts of bright red blood per rectum, he is very pale appearing, diaphoretic. Emergency blood release form filled out just in case needed. 3 units ordered, tech going down at this time to obtain blood Time: 13:15 Reevaluation #2: MTP paged overhead, since I was not successful in obtaining blood from blood bank X 3 Although H&H appears stable on lab values this value is likely delayed and while in the department patient has lost >1000 cc of slava red blood per rectum, HR increasing, pressure decreasin, mentation worsening, diaphoretic, pale and unwell appearing --> hydrodynamic instability suspected . Time: 14:00 Reevaluation #3: Spoke to Gi Dr. Navarrete reports and these conditions he is unable to do a colonoscopy on patient recommends reaching out to General surgery and I are however unclear this will be able to be done in regards that Interventional Radiology he reports if unable to get IR involved patient may need transfer for higher level of care Time: 13:59 Additional Reevaluation(s): 1420 Patient doing better BP stable 1548 Dr. Marrero aware of case if needed they will be consulted 1825 No futher bleeding GI at the bedside for evaluation Dr. Lee. Plan hospital admission Medical Decision Making Medical Decision Making [facility] Narrative: 1218 78-year-old male presents with left lower quadrant abdominal discomfort and bright red blood per rectum started this morning. History of diverticular bleeds. Physical exam discomfort to left lower quadrant upon palpation. History and physical exam concerning for acute blood loss anemia secondary to diverticular bleed. Will rule out metabolic derangements. No signs of hypovolemic shock at this time. Bleeding hemorrhoids also remain a possibility. Will also rule out hematuria as possible source. Plan labs, imaging, GI bleeding steady indicated due to the amount of blood. Differential Diagnosis Differential Diagnoses: The differential diagnosis associated with the presentation includes History and physical exam concerning for acute blood loss anemia secondary to diverticular bleed. Will rule out metabolic derangements. No signs of hypovolemic shock at this time. Bleeding hemorrhoids also remain a possibility. Will also rule out hematuria as possible source. Admission/Observation Consideration of admission/observation: Escalation of care including admission/observation considered possible Consult Healthcare Provider Management of the patient was discussed with: Store Clerk Cashier (Gi, IR ) Lab Data [facility] Lab Attestation statement: I reviewed the patient's lab results. 10/08/23 14:13 10/08/23 12:27 Labs: Lab Results 10/08/23 10/08/23 Range/Units 12:27 14:13 WBC 8.0 8.2 (4.8-10.8) X10*3/uL RBC 3.11 L D 3.34 L (4.60-5.80) X10*6/uL Hgb 9.6 L D 10.4 L (14.0-18.0) g/dl Hct 29.6 L D 31.8 L (42.0-52.0) % MCV 95.2 95.2 (80.0-98.0) fL MCH 30.9 31.1 (27.0-33.0) pg MCHC 32.4 32.7 (31.0-36.0) g/dl RDW 14.5 14.5 (11.0-16.0) % Plt Count 187 179 (160-400) X10*3/uL MPV 9.9 10.1 (9.4-12.4) fL Immature Gran % (Auto) 0.2 0.2 (0.0-0.4) % Neut % (Auto) 70.1 76.9 H (45-73) % Lymph % (Auto) 15.9 L 12.1 L (20-40) % Ward % (Auto) 10.7 9.2 (2-11) % Eos % (Auto) 2.5 1.2 (0-4) % Baso % (Auto) 0.6 0.4 (0-2) % Lymph # (Auto) 1.3 1.0 L (1.2-4.9) X10*3/uL Ward # (Auto) 0.9 0.8 (0.1-1.2) X10*3/uL Eos # (Auto) 0.2 0.1 (0.0-0.4) X10*3/uL Baso # (Auto) 0.1 0.0 (0.0-0.2) X10*3/uL Abs Immat Gran (auto) 0.02 0.02 (0.00-0.03) X10*3/uL Absolute Neuts (auto) 5.6 6.3 (2.0-8.3) x10*3/uL Absolute Nucleated RBC 0.000 0.000 (0.0-0.012) X10*3/uL Nucleated RBC % (auto) 0.0 0.0 (0.0-0.2) /100WBC PT 13.0 (11.1-13.3) SEC INR 1.1 (0.9-1.1) Sodium 144 (135-145) mmol/L Potassium 4.6 (3.3-5.1) mmol/L Chloride 110 H (96-108) mmol/L Carbon Dioxide 28 (22-29) mmol/L Anion Gap 11 L (12-20) BUN 14 (9-16) mg/dL Creatinine 0.54 (0.5-1.4) mg/dL Estim Creat Clear Calc 112.2 Estimated GFR > 60 Random Glucose 117 H (60-115) mg/dL Calcium 7.9 L D (8.4-10.2) mg/dL Magnesium 1.4 L* (1.6-2.6) mg/dL Total Bilirubin 0.7 (0.0-1.0) mg/dL AST 12 (5-37) U/L ALT 11 (0-40) U/L Alkaline Phosphatase 48 (39-117) U/L Total Protein 4.7 L (6.5-8.0) g/dL Albumin 2.9 L (3.5-5.0) g/dL Lipase 19 (8-78) U/L Blood Type A Positive Antibody Screen NEGATIVE Crossmatch See Detail Independent Interpretation I performed an independent interpretation of an: CT Scan Radiology Impression Discussion of test interpretation with radiology: I have reviewed the radiologist's reading. Independent Historian Clinical information obtained from an independent historian. History obtained from or confirmed by: EMS External Record Review External record reviewed: Inpatient record, Office record, Outpatient record, Prior outpatient labs, Prior outpatient radiology, Primary care record and Outside ED record Chronic Conditions Patient?s care impacted by: Other Medications Administered Discontinued Medications Generic Name Dose Route Start Last Admin Trade Name Freq PRN Reason Stop Dose Admin Sodium Chloride 1,000 mls @ 999 mls/hr 10/08/23 12:30 10/08/23 13:50 Ns IV 10/08/23 13:30 Infused .Q1H1M CHU Infusion Magnesium Sulfate 2 gm in 50 mls @ 25 mls/hr 10/08/23 12:53 10/08/23 14:20 Magnesium Sulfate/H2o IV 10/08/23 14:52 0 mls/hr ONCE ONE Infusion Sodium Chloride 100 mls @ 100 mls/hr 10/08/23 13:09 10/08/23 14:57 Ns IV 10/08/23 14:08 Not Given ONCE ONE Sodium Chloride 100 mls @ 100 mls/hr 10/08/23 13:09 10/08/23 14:57 Ns IV 10/08/23 14:08 Not Given ONCE ONE Sodium Chloride 100 mls @ 100 mls/hr 10/08/23 13:09 10/08/23 14:57 Ns IV 10/08/23 14:08 Not Given ONCE ONE Sodium Chloride 100 mls @ 100 mls/hr 10/08/23 13:27 10/08/23 14:57 Ns IV 10/08/23 14:26 Not Given ONCE ONE Sodium Chloride 100 mls @ 100 mls/hr 10/08/23 13:42 10/08/23 14:57 Ns IV 10/08/23 14:41 Not Given ONCE ONE Sodium Chloride 100 mls @ 100 mls/hr 10/08/23 13:42 10/08/23 14:57 Ns IV 10/08/23 14:41 Not Given ONCE ONE Sodium Chloride 100 mls @ 100 mls/hr 10/08/23 13:42 10/08/23 14:58 Ns IV 10/08/23 14:41 Not Given ONCE ONE Sodium Chloride 100 mls @ 100 mls/hr 10/08/23 13:42 10/08/23 14:58 Ns IV 10/08/23 14:41 Not Given ONCE ONE Sodium Chloride 100 mls @ 100 mls/hr 10/08/23 13:42 10/08/23 14:58 Ns IV 10/08/23 14:41 Not Given ONCE ONE Sodium Chloride 100 mls @ 100 mls/hr 10/08/23 13:42 10/08/23 14:58 Ns IV 10/08/23 14:41 Not Given ONCE ONE Iohexol 100 ml 10/08/23 15:27 10/08/23 15:27 Iohexol 350 Mg/Ml 100 Ml Infus..Btl IV 10/08/23 15:28 85 ml ONCE ONE Administration Critical Care Time Critical Care Time Critical Care Time: Yes Total Critical Care Time: 45 Attestation: I attest to this time spent taking care of the patient, obtaining history, physical, reviewing labs, imaging, treatment of patients condition +/- specialist/hospitalist consult Discharge Plan Discharge Clinical Impression: Acute post-hemorrhagic anemia, Abdominal pain Patient Disposition: Still a Patient Prescriptions: No Action ipratropium-albuterol 0.5 mg-3 mg(2.5 mg base)/3 mL solution for nebulization 3 ml inhalation Q4-6H PRN (Reason: wheezing) 30 Days Qty: 180 6RF bacitracin 500 unit/gram ointment 1 appl topical BID Qty: 30 0RF duloxetine 60 mg capsule,delayed release(DR/EC) 60 mg PO DAILY tamsulosin 0.4 mg capsule 0.4 mg PO BEDTIME Asmanex HFA 200 mcg/actuation HFA aerosol inhaler 1 puff inhalation BEDTIME atorvastatin 40 mg tablet 40 mg PO BEDTIME levalbuterol tartrate 45 mcg/actuation HFA aerosol inhaler 2 inh inhalation Q6H temazepam 15 mg capsule 15 mg PO BEDTIME PRN acetaminophen-codeine 120 mg-12 mg /5 mL (5 mL) solution 5 ml PO Q8H cyclobenzaprine 10 mg tablet 10 mg PO BEDTIME docusate sodium 50 mg capsule 50 mg PO DAILY dicyclomine 20 mg tablet 20 mg PO BID esomeprazole magnesium 40 mg capsule,delayed release(DR/EC) 40 mg PO DAILY coenzyme Q10 [CoQ-10] 100 mg capsule 300 mg PO DAILY Anoro Ellipta 62.5-25 mcg/actuation blister with device 1 inh inhalation DAILY metoprolol succinate 25 mg tablet extended release 24 hr 25 mg PO BEDTIME guaifenesin 600 mg tablet extended release 12hr 600 mg PO BID diltiazem HCl 180 mg capsule,extended release 24hr 180 mg PO DAILY Print Language: Faroese
--- NOTE | 2023-10-08 12:14 | PC.NURSE ---
axox3. unable to tolerate lying supine for BP d/t c1 fracture and pain.
[2023-10-08 12:33] LABS: MANUAL DIFF FLAG NO
[2023-10-08 12:35] LABS: Basophils Absolute Auto 0.1 X10*3/uL (0.0-0.2); Basophils Percent Auto 0.6 % (0-2); Eosinophils Absolute Auto 0.2 X10*3/uL (0.0-0.4); Eosinophils Percent Auto 2.5 % (0-4); Hematocrit 29.6 % (42.0-52.0); Hemoglobin 9.6 g/dl (14.0-18.0); Imm Gran Abs Auto 0.02 X10*3/uL (0.00-0.03); Imm Gran Pct Auto 0.2 % (0.0-0.4); Lymphocytes Absolute Auto 1.3 X10*3/uL (1.2-4.9); Lymphocytes Percent Auto 15.9 % (20-40); Mean Corpuscular HGB Conc 32.4 g/dl (31.0-36.0); Mean Corpuscular Hemoglobin 30.9 pg (27.0-33.0); Mean Corpuscular Volume 95.2 fL (80.0-98.0); Mean Platelet Volume 9.9 fL (9.4-12.4); Monocytes Absolute Auto 0.9 X10*3/uL (0.1-1.2); Monocytes Percent Auto 10.7 % (2-11); Neutrophils Absolute Auto 5.6 x10*3/uL (2.0-8.3); Neutrophils Percent Auto 70.1 % (45-73); Platelet Count 187 X10*3/uL (160-400); Red Blood Count 3.11 X10*6/uL (4.60-5.80); Red Cell Distribution Width 14.5 % (11.0-16.0)
[2023-10-08] MEDS: 0.9 % Sodium Chloride 1,000 ML 999 ML IV (12:39)
[2023-10-08 12:54] LABS: Alanine Aminotransferase 11 U/L (0-40); Albumin Level 2.9 g/dL (3.5-5.0); Alkaline Phosphatase 48 U/L (39-117); Anion Gap 11 (12-20); Aspartate Amino Transferase 12 U/L (5-37); Bilirubin Total 0.7 mg/dL (0.0-1.0); Blood Urea Nitrogen 14 mg/dL (9-16); Calcium 7.9 mg/dL (8.4-10.2); Carbon Dioxide 28 mmol/L (22-29); Chloride 110 mmol/L (96-108); Creatinine Clr Calc Pharmacy 112.2; Estimated Glomerular Filt Rate > 60; Glucose Random 117 mg/dL (60-115); Lipase 19 U/L (8-78); Magnesium 1.4 mg/dL (1.6-2.6); Potassium 4.6 mmol/L (3.3-5.1); Sodium 144 mmol/L (135-145); Total Protein 4.7 g/dL (6.5-8.0)
--- NOTE | 2023-10-08 13:09 | PC.NURSE ---
very l;arge BM of blood only. started vomiting during BM diaphoretic and pale. no AMS. pressures held. provider to bedside. will order blood transfusion
--- NOTE | 2023-10-08 13:15 | PC.NURSE ---
continues to loose blood. alert. 2nd line placed.
[2023-10-08 13:22] LABS: INTERNATIONAL NORM RATIO 1.1 (0.9-1.1)
--- NOTE | 2023-10-08 13:27 | PC.NURSE ---
700ml blood in bedpan. remains alert. lucid. provider aware.
[2023-10-08] MEDS: Magnesium Sulfate/H2O 2 GM/50 ML PIGGYBACK IV (13:50)
[2023-10-08 14:18] LABS: Basophils Percent Auto 0.4 % (0-2); Eosinophils Absolute Auto 0.1 X10*3/uL (0.0-0.4); Eosinophils Percent Auto 1.2 % (0-4); Hematocrit 31.8 % (42.0-52.0); Hemoglobin 10.4 g/dl (14.0-18.0); Imm Gran Abs Auto 0.02 X10*3/uL (0.00-0.03); Imm Gran Pct Auto 0.2 % (0.0-0.4); Lymphocytes Percent Auto 12.1 % (20-40); MANUAL DIFF FLAG NO; Mean Corpuscular HGB Conc 32.7 g/dl (31.0-36.0); Mean Corpuscular Hemoglobin 31.1 pg (27.0-33.0); Mean Corpuscular Volume 95.2 fL (80.0-98.0); Mean Platelet Volume 10.1 fL (9.4-12.4); Monocytes Absolute Auto 0.8 X10*3/uL (0.1-1.2); Monocytes Percent Auto 9.2 % (2-11); Neutrophils Absolute Auto 6.3 x10*3/uL (2.0-8.3); Neutrophils Percent Auto 76.9 % (45-73); Platelet Count 179 X10*3/uL (160-400); Red Blood Count 3.34 X10*6/uL (4.60-5.80); Red Cell Distribution Width 14.5 % (11.0-16.0); White Blood Count 8.2 X10*3/uL (4.8-10.8)
--- NOTE | 2023-10-08 14:28 | PC.NURSE ---
Following bloos loss MTP began; 1st unit [id number] up at 1345. down 1400. 2nd unit [id number] up at 1350, down at 1415. 3rd unit [id number] up at 1420 down at 1436, 4th unit [id number] up at 1438, down at 1455
--- NOTE | 2023-10-08 15:06 | PC.NURSE ---
tolerated infusions well. no SOB. bleeding has slowed down. preped for CT transfer with RN. [email or web address]. daughter has been at bedside and all aware of plan of car. nsr on monitor. singing.
[2023-10-08] MEDS: iohexoL 350 MG/ML 100 ML INFUS..BTL IV (15:27)
--- NOTE | 2023-10-08 15:54 | PC.NURSE ---
cleansed. repositioned. c spine precautions throughout. tolerated well.
--- NOTE | 2023-10-08 18:15 | PC.NURSE ---
resting quietly. no futher bleeding.
--- NOTE | 2023-10-08 18:50 | PM.EVENT ---
Event Note Date of Service: 10/08/23 Event Note: GI Consult-Full note dictated-History from patient, daughter, ER staff, and EMR Imp Acute lower GI bleed most likely from a diverticular source based on his [address]. Currently no sign of active bleeding. Rec: Observe. I will not plan a colonoscopy given the findings in 2020 and his current issue with a recent fracture of the C-1 vertebra. If he has recurrent active bleeding I would recommend a repeat CTA of the abdomen and consideration for IR therapy. D/W patient and his daughter in detail. They are comfortable with that plan. Thanks Time Spent With Patient Time: Total time managing care of this patient today ____ minutes.
[2023-10-08 19:00] LABS: Fibrinogen 297 MG/DL (259-690)
--- NOTE | 2023-10-08 19:20 | P.HPHOSP_ITS ---
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 Patient states he noticed bleeding per rectum on the day of presentation. He had a similar presentation 2-3 days ago when he was diagnosed with diverticular bleed. He has had multiple episodes of bright red blood, painless throughout the day. Has associated left-sided abdominal discomfort. No fever, chills, nausea, vomiting. He denies chest discomfort, palpitations, shortness of breath, changes in urinary habits. In the emergency department, hemoglobin was found to be 9.6 and PRBC ordered. Gastroenterology was consulted who requested admission with conservative management. CT abdomen/pelvis without evidence of active GI bleed. Review of Systems 2 Constitutional: Constitutional: Reports no additional constitutional complaints Cardiovascular: Cardiovascular: Reports no additional cardiovascular complaints Respiratory: Respiratory: Reports no additional respiratory complaints Gastrointestinal: Gastrointestinal: Reports hematochezia Genitourinary: Genitourinary: Reports no additional male genitourinary complaints [facility] Medical History COPD (chronic obstructive pulmonary disease) Cardiac arrhythmia Family History Father No problems noted. Mother No problems noted. Surgical History History of lobectomy of lung Social History Alcohol intake: current Alcohol intake frequency: a few times a week Patient Tobacco Use Status: Never used Tobacco Second Hand Smoke Exposure: No Advance Directives: Yes Advance Directives Information Provided: No Advance Directives on File: No Meds Allergies Allergy/AdvReac Type Severity Reaction Status Date / Time Sulfa (Sulfonamide Allergy Severe THROAT Verified 10/08/23 12:05 Antibiotics) SWELLING, [SULFA (SULFONAMIDE DIFF ANTIBIOTICS)] BREATHING, SKIN TURNS PINK Home Medications ?Medication ?Instructions ?Recorded ?Confirmed ?Last Taken ?Type acetaminophen 120 mg-codeine 12 5 ml PO Q8H 08/17/20 08/17/22 Unknown History mg/5 mL (5 mL) oral solution atorvastatin 40 mg tablet 40 mg PO BEDTIME 08/17/20 08/17/22 Unknown History cyclobenzaprine 10 mg tablet 10 mg PO BEDTIME 08/17/20 08/17/22 Unknown History duloxetine 60 mg capsule,delayed 60 mg PO DAILY 08/17/20 08/17/22 Unknown History release levalbuterol tartrate 45 2 inh inhalation Q6H 08/17/20 08/17/22 Unknown History mcg/actuation aerosol inhaler mometasone 200 mcg/actuation HFA 1 puff inhalation BEDTIME 08/17/20 08/17/22 Unknown History aerosol inhaler (Asmanex HFA) tamsulosin 0.4 mg capsule 0.4 mg PO BEDTIME 08/17/20 08/17/22 Unknown History temazepam 15 mg capsule 15 mg PO BEDTIME PRN 08/17/20 08/17/22 Unknown History metoprolol succinate 25 mg 25 mg PO BEDTIME 08/18/21 08/17/22 Unknown History tablet,extended release 24 hr coenzyme Q10 100 mg capsule 300 mg PO DAILY 10/27/21 08/17/22 Unknown History (CoQ-10) dicyclomine 20 mg tablet 20 mg PO BID 10/27/21 08/17/22 Unknown History docusate sodium 50 mg capsule 50 mg PO DAILY 10/27/21 08/17/22 Unknown History esomeprazole magnesium 40 mg 40 mg PO DAILY 10/27/21 08/17/22 Unknown History capsule,delayed release umeclidinium 62.5 mcg-vilanterol 1 inh inhalation DAILY 10/27/21 08/17/22 Unknown History 25 mcg/actuation powdr for inhalation (Anoro Ellipta) diltiazem HCl 180 mg 180 mg PO DAILY 06/21/22 08/17/22 Unknown History capsule,extended release 24 hr guaifenesin 600 mg tablet, 600 mg PO BID 06/21/22 08/17/22 Unknown History extended release 12 hr Physical Exam 2 Vital Signs and Narrative: Vital Signs: Last Vital Signs Temp 97.5 F 10/08/23 18:00 Pulse 90 10/08/23 18:00 Resp 18 10/08/23 18:00 BP 146/87 H 10/08/23 18:00 Pulse Ox 100 10/08/23 18:00 O2 Del Method Nasal Cannula 10/08/23 18:00 O2 Flow Rate 4 10/08/23 18:00 Oxygen Flow Rate 2 10/08/23 12:02 BMI result Body Mass Index 22.6 Elderly male lying in bed in no distress on supplemental oxygen Neck supple, no JVD Regular rate and rhythm, S1-S2 heard Decreased right-sided breath sounds Abdomen soft nontender, no guarding, no rigidity Patient is awake, alert and oriented to self, place, time and person ; no focal motor deficit Psych: Normal mood No pedal edema Results Labs 10/08/23 14:13 10/08/23 12:27 Labs: Laboratory Results - last 24 hr 10/08/23 10/08/23 12:27 14:13 MCV 95.2 95.2 MCH 30.9 31.1 MCHC 32.4 32.7 RDW 14.5 14.5 Plt Count 187 179 MPV 9.9 10.1 Immature Gran % (Auto) 0.2 0.2 Neut % (Auto) 70.1 76.9 H Lymph % (Auto) 15.9 L 12.1 L [place] % (Auto) 10.7 9.2 Eos % (Auto) 2.5 1.2 Baso % (Auto) 0.6 0.4 Lymph # (Auto) 1.3 1.0 L [place] # (Auto) 0.9 0.8 Eos # (Auto) 0.2 0.1 Baso # (Auto) 0.1 0.0 Abs Immat Gran (auto) 0.02 0.02 Absolute Neuts (auto) 5.6 6.3 Absolute Nucleated RBC 0.000 0.000 Nucleated RBC % (auto) 0.0 0.0 PT 13.0 INR 1.1 Fibrinogen 297 Anion Gap 11 L Estim Creat Clear Calc 112.2 Estimated GFR > 60 Random Glucose 117 H Calcium 7.9 L D Magnesium 1.4 L* Total Bilirubin 0.7 AST 12 ALT 11 Alkaline Phosphatase 48 Total Protein 4.7 L Albumin 2.9 L Lipase 19 Blood Type A Positive Antibody Screen NEGATIVE Crossmatch See Detail Imaging Radiologist's Impressions: Impressions Abdomen/Pelvis CT 10/08/23 15:32 IMPRESSION: 1. No evidence of active GI bleeding. 2. Colonic diverticulosis without diverticulitis. 3. Other incidental findings described above. Fleischner guidelines were followed. 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 #. Acute GI bleed: Likely diverticular bleed. Will admit patient with cardiac monitoring. Gastroenterology appreciated #. Acute blood loss anemia in the setting of above: PRBC being transfused in the ER. Closely monitor H&H. #. Hypomagnesemia: Repleted #. Chronic hypoxic respiratory failure due to COPD and right diaphragmatic paralysis: Continue 4 L supplemental oxygen at night. No exacerbation of COPD during admission. Continue home inhaler #. Cardiac arrhythmia, with frequent PACs and PVCs: On diltiazem and beta- annie #. BPH: On Flomax #. Mixed hyperlipidemia: On statin #. C1 fracture: Continue C-collar. #. Mood disorder: Continue home mood stabilizers DVT prophylaxis: Mechanical Full code Med rec pending Admit as inpatient and will require two night minimum hospital stay for close monitoring of hemodynamics, H&H (as above), which is not possible in a lesser acute setting. Quality Stroke Does the patient have a stroke diagnosis?: No VTE Prior VTE?: No VTE Risk Level:: Medical - moderate - high VTE Device Contraindication: Treatment Not Indicated VTE Drug Contraindication: N/A - Med Ordered
--- NOTE | 2023-10-08 20:17 | PHA.MEDREC ---
Addendum entered by Gina Carrasquillo RPh 10/08/23 21:02: Reviewed by [facility], utilized list from [facility] to resolve any discrepancies with provided list. Some doses of medications did not exist and frequencies that were not correct. Original Note: Pharmacy Consult ? Medication Reconciliation Pharmacy has completed the medication reconciliation. Confirmed medications with list provided by patient daughter at bedside and patient was able to confirm his dosings and how he is taking them.
[2023-10-08 21:00] LABS: Albumin Level 2.9 g/dL (3.5-5.0); Calcium 8.4 mg/dL (8.4-10.2)
[2023-10-08] MEDS: DULoxetine HCl 60 MG CAPSULE.DR PO (23:12)
[2023-10-08] MEDS: Carbidopa/Levodopa 25/100 TABLET 1 TAB PO (23:12)
[2023-10-08] MEDS: Temazepam 15 MG CAPSULE PO (23:59)
[2023-10-09 02:07] VITALS: BP 155/88; PULSE 89; RESP 18; TEMP 36.5; O2SAT 99
--- NOTE | 2023-10-09 03:39 | CONS_ITS ---
DATE OF SERVICE: 10/08/2023 REASON FOR CONSULTATION: Lower GI bleeding. HISTORY OF PRESENT ILLNESS: This has been obtained from the patient, his daughter, the medical record, and the ER staff. The patient is a 78-year-old male, known to me from previous visits in the office and procedures. He has had previous colonoscopies with me including the most recent one in 2020. At that time, he underwent both upper endoscopy and colonoscopy for evaluation of GI bleeding. The upper endoscopy was not remarkable and the colonoscopy revealed some polyps, which were removed as well as significant sigmoid diverticulosis. Since that time, he has had no further problems with GI bleeding. He typically has a fairly good appetite and denies any significant heartburn or dysphagia. His bowel movements have been fairly normal and without any sign of bleeding up until this morning, when he develops significant hematochezia, described as fresh blood and with associated hypotension. He came to the ER for evaluation and was resuscitated with blood and fluids. He did have a CT angiogram of the abdomen which was negative for any sign of any active extravasation of contrast. Since being in the ER, his bleeding has stopped and there has been no further rectal bleeding. His vital signs have also stabilized and he is feeling much better. He does not use any blood thinners at home and denies any chronic use of NSAIDs. He describes that, since I performed his upper endoscopy and colonoscopy in 2020, he has had no further GI problems. Of note, he did suffer a fall recently and a workup in the ER at [facility] revealed a fracture of the C1 vertebral body. He has been in a neck collar since that time and did not have surgery. PAST MEDICAL HISTORY: Notable for multiple colonoscopies with removal of polyps including one in 2020. Gastroesophageal reflux. Hyperlipidemia. Asthma and COPD. Glaucoma. Spinal stenosis and scoliosis. Elevated right hemidiaphragm seen on imaging studies. Diverticulosis with previous GI bleeding as well including a hospitalization in 2014. PAST SURGICAL HISTORY: He has had surgeries including an appendectomy, exploratory laparotomy in 1976. Right lower lobe lobectomy for bronchiectasis. Hernia surgery. Left hand and wrist surgery. FAMILY HISTORY: Negative for GI malignancy nor inflammatory bowel disease. SOCIAL HISTORY: He is . He does not smoke nor use any significant amounts of alcohol. REVIEW OF SYSTEMS: CONSTITUTIONAL: He had been feeling fairly well up until today with good appetite. SKIN: No rash. No pruritus. CARDIAC: No chest pain. PULMONARY: No cough. No hemoptysis. GI: As above. URINARY: No dysuria or any hematuria. PHYSICAL EXAMINATION: GENERAL: The patient is a pleasant, alert, fairly comfortable appearing male. SKIN: Warm and dry. Nonjaundiced. HEENT: Anicteric sclerae. ABDOMEN: Soft. Normal bowel sounds. Nondistended and nontender. CHEST: Clear. CARDIAC: Normal S1, S2. EXTREMITIES: Without edema. LABORATORIES: Initial hemoglobin was 9.6, compared to 12.9 in January 2023. Most recent hemoglobin after this morning was 10.4, as of 2 p.m. White blood cell count 8.2, platelets 179,000. PT 13.0 with INR 1.1. Normal electrolytes; BUN 14, creatinine 0.5. Normal LFTs. Albumin 2.9. CT scan with angiography was negative for any sign of extravasation or active bleeding. He was noted to have his diverticulosis, but without diverticulitis. IMPRESSION: Given the patient's clinical history, this certainly seems to consistent with an acute lower gastrointestinal bleed from diverticulosis. At the present time, things seem to have stopped spontaneously and he is hemodynamically stable. Given the findings on his colonoscopy from just less than 3 years ago and today's CT scan as well as a clinical history, I do not think a repeat colonoscopy would be helpful. Certainly, given his recent fracture of the C1 vertebral body, I do not think that would be advisable anyway to have him undergo a colonoscopy. At this point, I would continue observation. Certainly, if he shows signs of recurrent and active bleeding, I would recommend a repeat CTA of the abdomen, to assess for any active bleeding that might be amenable to interventional radiology treatment. However, if things are stable, I would then slowly advance his diet over the next 24 to 48 hours, and then hopefully be able to have him go home. Again, I would hold off on colonoscopy, both in the short term and computer terminal operator at this point, as I do not think that would really offer any new or helpful information. This has all been discussed in detail with the patient and his daughter this evening, and they are both comfortable with this plan. Thanks for the consultation. MD EB Acuña/GABY / [phone]
[2023-10-09 05:18] LABS: Hematocrit 36.3 % (42.0-52.0); Hemoglobin 12.3 g/dl (14.0-18.0); Mean Corpuscular HGB Conc 33.9 g/dl (31.0-36.0); Mean Corpuscular Volume 91.4 fL (80.0-98.0); Mean Platelet Volume 9.6 fL (9.4-12.4); Platelet Count 135 X10*3/uL (160-400); Red Blood Count 3.97 X10*6/uL (4.60-5.80); Red Cell Distribution Width 14.7 % (11.0-16.0); White Blood Count 5.3 X10*3/uL (4.8-10.8)
[2023-10-09 05:32] LABS: Anion Gap 9 (12-20); Blood Urea Nitrogen 15 mg/dL (9-16); Calcium 8.5 mg/dL (8.4-10.2); Carbon Dioxide 28 mmol/L (22-29); Chloride 108 mmol/L (96-108); Creatinine Clr Calc Pharmacy 106.3; Estimated Glomerular Filt Rate > 60; Glucose Random 101 mg/dL (60-115); Magnesium 1.9 mg/dL (1.6-2.6); Potassium 4.2 mmol/L (3.3-5.1); Sodium 141 mmol/L (135-145)
--- NOTE | 2023-10-09 05:38 | PC.NURSE ---
pt had a successful night throughout this shift, has not had any BM's, no bloody stools noted. pt is resting comfortably on the stretcher in no apparent distress, A&Ox4, skin p/w/d, answering all questions appropriately. able to make needs known. denies acute pain or distress. c collar in place at baseline for previous c-spine fracture. call mcrae within reach, plan of care ongoing.
[2023-10-09 05:55] VITALS: BP 141/81; PULSE 88; RESP 19; TEMP 36.5; O2SAT 100
--- NOTE | 2023-10-09 07:33 | HO.PM.IMPN ---
Subjective Subjective Date of Service: 10/09/23 Physical Exam Vital Signs: Vital Signs: Last Vital Signs Temp 97.7 F 10/09/23 05:55 Pulse 88 10/09/23 05:55 Resp 19 10/09/23 05:55 BP 141/81 H 10/09/23 05:55 Pulse Ox 100 10/09/23 05:55 O2 Del Method Nasal Cannula 10/09/23 05:55 O2 Flow Rate 4 10/09/23 05:55 Oxygen Flow Rate 2 10/08/23 12:02 BMI result Body Mass Index 22.6 Objective Data Active Medications Acetaminophen (Acetaminophen 325 Mg Tablet) 650 mg PO Q6H PRN PRN Reason: Pain, Mild (Pain Scale 1-3), fever or headache Atorvastatin Calcium (Atorvastatin Calcium 20 Mg Tablet) 20 mg PO BEDTIME CHU Calcium Carbonate (Calcium Carbonate 750 Mg Tab.Chew) 750 mg PO Q4H PRN PRN Reason: Heartburn Carbidopa/Levodopa (Carbidopa/Levodopa 25/100 Tablet) 1 tab PO TID [facility] Last Admin: 10/08/23 23:12 Dose: 1 tab Documented By: CARMELLA Cyanocobalamin (Cyanocobalamin (Vitamin B-12) 1,000 Mcg Tablet) 1,000 mcg PO DAILY [facility] Cyclobenzaprine HCl (Cyclobenzaprine Hcl 10 Mg Tablet) 10 mg PO BID PRN PRN Reason: Back Pain Dicyclomine HCl (Dicyclomine Hcl 10 Mg Capsule) 40 mg PO DAILY [facility] Diltiazem HCl (Diltiazem Hcl Cd 180 Mg Cap.Er.24h) 180 mg PO DAILY [facility]; Protocol Duloxetine HCl (Duloxetine Hcl 60 Mg Capsule.Dr) 60 mg PO BID [facility] Last Admin: 10/08/23 23:12 Dose: 60 mg Documented By: CARMELLA Fluticasone Propionate (Fluticasone Propionate 250 Mcg Blst.W.Dev) 2 puff INHALE RBID [facility] Guaifenesin (Guaifenesin La 600 Mg Tab.Er.12h) 600 mg PO DAILY PRN PRN Reason: Cough Lidocaine HCl (Lidocaine 4 % Cream Kit) 1 appl TOPICAL BID PRN PRN Reason: Pain Magnesium Hydroxide (Milk Of Magnesia 30 Ml Oral.Susp) 30 ml PO DAILY PRN PRN Reason: Constipation Melatonin (Melatonin 3 Mg Tablet) 6 mg PO BEDTIME PRN PRN Reason: Insomnia Metoprolol Succinate (Metoprolol Succinate Er 25 Mg Tab.Er.24h) 25 mg PO DAILY CHU; Protocol Non-Formulary Medication (Calcipotriene) 1 appl TOPICAL BID PRN PRN Reason: scalp Non-Formulary Medication (Fluorouracil) 1 appl TOPICAL DAILY CHU Non-Formulary Medication (Levalbuterol Tartrate) 2 inhalation INHALE Q6H CHU Non-Formulary Medication (Umeclidinium-Vilanterol [Anoro Ellipta]) 1 inhalation INHALE DAILY CHU Omeprazole (Omeprazole 20 Mg Capsule.Dr) 20 mg PO DAILY@0630 CHU Ondansetron HCl (Ondansetron Hcl 4 Mg/2 Ml Vial) 4 mg IVPUSH Q8H PRN PRN Reason: Nausea and Vomiting Senna/Docusate Sodium (Sennosides/Docusate Sodium Tablet) 2 tab PO BID CHU Sodium Chloride (0.9 % Sodium Chloride Flush 3 Ml Syringe) 3 ml IVFLUSH QSHIFT CHU Last Admin: 10/09/23 01:08 Dose: Not Given Documented By: CARMELLA Non-Admin Reason: Previously Administered Tamsulosin HCl (Tamsulosin Hcl 0.4 Mg Capsule) 0.8 mg PO BEDTIME CHU Temazepam (Temazepam 15 Mg Capsule) 15 mg PO BEDTIME PRN PRN Reason: Insomnia Last Admin: 10/08/23 23:59 Dose: 15 mg Documented By: CARMELLA Labs 10/09/23 05:02 10/09/23 05:02 Labs: Laboratory Results - last 24 hr 10/08/23 10/08/23 10/08/23 12:27 14:13 20:34 MCV 95.2 95.2 MCH 30.9 31.1 MCHC 32.4 32.7 RDW 14.5 14.5 Plt Count 187 179 MPV 9.9 10.1 Immature Gran % (Auto) 0.2 0.2 Neut % (Auto) 70.1 76.9 H Lymph % (Auto) 15.9 L 12.1 L [place] % (Auto) 10.7 9.2 Eos % (Auto) 2.5 1.2 Baso % (Auto) 0.6 0.4 Lymph # (Auto) 1.3 1.0 L [place] # (Auto) 0.9 0.8 Eos # (Auto) 0.2 0.1 Baso # (Auto) 0.1 0.0 Abs Immat Gran (auto) 0.02 0.02 Absolute Neuts (auto) 5.6 6.3 Absolute Nucleated RBC 0.000 0.000 Nucleated RBC % (auto) 0.0 0.0 PT 13.0 INR 1.1 Fibrinogen 297 Anion Gap 11 L Estim Creat Clear Calc 112.2 Estimated GFR > 60 Random Glucose 117 H Calcium 7.9 L D 8.4 D Magnesium 1.4 L* Total Bilirubin 0.7 AST 12 ALT 11 Alkaline Phosphatase 48 Total Protein 4.7 L Albumin 2.9 L 2.9 L Lipase 19 Blood Type A Positive Antibody Screen NEGATIVE Crossmatch See Detail 10/09/23 05:02 MCV 91.4 MCH 31.0 MCHC 33.9 RDW 14.7 Plt Count 135 L MPV 9.6 Immature Gran % (Auto) Neut % (Auto) Lymph % (Auto) [place] % (Auto) Eos % (Auto) Baso % (Auto) Lymph # (Auto) [place] # (Auto) Eos # (Auto) Baso # (Auto) Abs Immat Gran (auto) Absolute Neuts (auto) Absolute Nucleated RBC 0.000 Nucleated RBC % (auto) 0.0 PT INR Fibrinogen Anion Gap 9 L Estim Creat Clear Calc 106.3 Estimated GFR > 60 Random Glucose 101 Calcium 8.5 Magnesium 1.9 Total Bilirubin AST ALT Alkaline Phosphatase Total Protein Albumin Lipase Blood Type Antibody Screen Crossmatch Quality Stroke Does the patient have a stroke diagnosis?: No VTE Prior VTE?: No VTE Risk Level:: Medical - moderate - high VTE Device Contraindication: Treatment Not Indicated VTE Drug Contraindication: N/A - Med Ordered
[2023-10-09 07:54] VITALS: BP 151/89; PULSE 81; RESP 15; O2SAT 99
[2023-10-09] MEDS: DULoxetine HCl 60 MG CAPSULE.DR PO (09:35)
[2023-10-09] MEDS: Omeprazole 20 MG CAPSULE.DR PO (09:35)
[2023-10-09] MEDS: Carbidopa/Levodopa 25/100 TABLET 1 TAB PO (09:35)
[2023-10-09] MEDS: Cyanocobalamin (Vitamin B-12) 1,000 MCG TABLET 1000 MCG PO (09:35)
[2023-10-09] MEDS: Dicyclomine HCl 10 MG CAPSULE 40 MG PO (09:35)
[2023-10-09 09:36] VITALS: BP 133/85; PULSE 85
[2023-10-09] MEDS: Sennosides/Docusate Sodium TABLET 2 TAB PO (09:36)
[2023-10-09] MEDS: Metoprolol Succinate ER 25 MG TAB.ER.24H PO (09:36)
[2023-10-09] MEDS: dilTIAZem HCL CD 180 MG CAP.ER.24H PO (09:36)
[2023-10-09 10:24] LABS: Hematocrit 38.8 % (42.0-52.0); Hemoglobin 13.2 g/dl (14.0-18.0)
[2023-10-09 11:48] VITALS: BP 145/82; PULSE 80; RESP 17; TEMP 37.2; O2SAT 97
[2023-10-09] MEDS: 0.9 % Sodium Chloride Flush 3 ML SYRINGE IVFLUSH (12:32)
--- NOTE | 2023-10-09 12:33 | PC.NURSE ---
patient refused his Flovent Diskus this morning.
--- NOTE | 2023-10-09 13:51 | P.DS_ITS ---
DS: Providers Provider Date of Service: 10/09/23 Date of admission: 10/08/23 19:21 Date of discharge: 10/09/23 Primary care physician: Randy Bradshwa MD Attending physician on admission: Lee Pike Attending physician on discharge: Mikhail Mendez Discharging clinician: Elisa Warner DS: Diagnosis Discharge Diagnosis (1) Acute GI bleeding: Status: Acute DS: Summary Hospital Course Hospital Course: HPI on admission by Dr. 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 Patient states he noticed bleeding per rectum on the day of presentation. He had a similar presentation 2-3 days ago when he was diagnosed with diverticular bleed. He has had multiple episodes of bright red blood, painless throughout the day. Has associated left-sided abdominal discomfort. No fever, chills, nausea, vomiting. He denies chest discomfort, palpitations, shortness of breath, changes in urinary habits. In the emergency department, hemoglobin was found to be 9.6 and PRBC ordered. Gastroenterology was consulted who requested admission with conservative management. CT abdomen/pelvis without evidence of active GI bleed. Hospital course: Hospital course uneventful. Patient was transfused 4 units PRBC in the ED due to active GI bleed. Bleeding stopped spontaneously without recurrence. H/H last night with appropriate rise to 12.3/36.3%. No bleeding events overnight. H/H on morning of discharge 13.2/38.8%. Seen by GI who did not recommend colonoscopy or further imaging unless evidence of ongoing bleeding. Suspect diverticular bleed. NO abdominal pain, nausea or vomiting. Tolerated clear liquids and advanced to regular diet with good tolerance. He is not on any blood thinners. Continue maintenance inhalers for COPD, no exacerbation, albuterol as needed. No acute hypoxia, continued on home O2. Initially has hypomagnesemia which was repleted. Was monitored on telemtry without evidence of acute arrhythmia, continued on diltiazem and metoprolol. Continued on flomax for BPH and mood stabilizers for mood disorder. He did sustain C1 fracture several weeks ago being managed conservatively and was kept in c-collar and recommended to continue plan outpt as outlined by [facility] neurosurgery. He should follow up outpt with PCP and GI. Repeat CBC in 3 days to ensure stability. Status at Discharge Overall status at discharge: patient is progressing back to baseline Time Attestation Discharge Coordination Time (in mins): 38 Quality: Safe Use of Opioids Does Pt have an Active Cancer Diagnosis on the Problem List?: No Quality: Stroke Does the patient have a stroke diagnosis?: No Physical Exam Vital Signs: Vital Signs: Last Vital Signs Temp 98.9 F 10/09/23 11:48 Pulse 80 10/09/23 11:48 Resp 17 10/09/23 11:48 BP 145/82 H 10/09/23 11:48 Pulse Ox 97 10/09/23 11:48 O2 Del Method Nasal Cannula 10/09/23 11:48 O2 Flow Rate 4 10/09/23 11:48 Oxygen Flow Rate 2 10/08/23 12:02 BMI result Body Mass Index 22.6 Constitutional - Awake and Alert, No apparent distress Eyes - PERRLA, EOMI Cardiovascular - S1S2, RRR, No edema Respiratory - Normal lung expansion, Normal respiratory effort, No respiratory distress, CTA bilaterally Gastrointestinal - NT / ND; +BS; No rebound or guarding Extremities - no calf tenderness bilaterally, no swelling Skin - Warm/Dry Neurological - Alert & oriented x3 Psychological - Appropriate affect DS: Data Data Completed and Pending Labs on day of discharge: Laboratory Results - last 24 hr 10/08/23 10/08/23 10/08/23 12:27 14:13 20:34 WBC 8.2 RBC 3.34 L Hgb 10.4 L Hct 31.8 L MCV 95.2 MCH 31.1 MCHC 32.7 RDW 14.5 Plt Count 179 MPV 10.1 Immature Gran % (Auto) 0.2 Neut % (Auto) 76.9 H Lymph % (Auto) 12.1 L [place] % (Auto) 9.2 Eos % (Auto) 1.2 Baso % (Auto) 0.4 Lymph # (Auto) 1.0 L [place] # (Auto) 0.8 Eos # (Auto) 0.1 Baso # (Auto) 0.0 Abs Immat Gran (auto) 0.02 Absolute Neuts (auto) 6.3 Absolute Nucleated RBC 0.000 Nucleated RBC % (auto) 0.0 Fibrinogen 297 Sodium Potassium Chloride Carbon Dioxide Anion Gap BUN Creatinine Estim Creat Clear Calc Estimated GFR Random Glucose Calcium 8.4 D Magnesium Albumin 2.9 L Blood Type A Positive Antibody Screen NEGATIVE Crossmatch See Detail 10/09/23 10/09/23 05:02 10:11 WBC 5.3 RBC 3.97 L Hgb 12.3 L 13.2 L Hct 36.3 L 38.8 L MCV 91.4 MCH 31.0 MCHC 33.9 RDW 14.7 Plt Count 135 L MPV 9.6 Immature Gran % (Auto) Neut % (Auto) Lymph % (Auto) [place] % (Auto) Eos % (Auto) Baso % (Auto) Lymph # (Auto) [place] # (Auto) Eos # (Auto) Baso # (Auto) Abs Immat Gran (auto) Absolute Neuts (auto) Absolute Nucleated RBC 0.000 Nucleated RBC % (auto) 0.0 Fibrinogen Sodium 141 Potassium 4.2 Chloride 108 Carbon Dioxide 28 Anion Gap 9 L BUN 15 Creatinine 0.57 Estim Creat Clear Calc 106.3 Estimated GFR > 60 Random Glucose 101 Calcium 8.5 Magnesium 1.9 Albumin Blood Type Antibody Screen Crossmatch Discharge Plan Discharge Anticipated Discharge Date/Time: 10/09/23 14:01 Patient Disposition: Home, Self-Care Discharge Diagnosis: Acute GI bleed with acute blood loss anemia Referrals: Randy Bradshaw MD [Primary Care Provider] - 1 Week Discharge Medications: Continued acetaminophen-codeine 300-30 mg Tablet 1 tab PO TID PRN (Reason: Pain) fluorouracil 1 % Cream 1 appl TOPICAL DAILY sennosides-docusate sodium [Senna with Docusate Sodium] 8.6-50 mg Tablet 2 tab-cap PO BID atorvastatin 20 mg Tablet 20 mg PO BEDTIME diltiazem HCl [Tiazac] 180 mg Capsule,Extended Release 24 Hr 180 mg PO DAILY lidocaine 4 % Cream 1 appl TOPICAL BID PRN (Reason: Pain) cyanocobalamin (vitamin B-12) 1,000 mcg Tablet 1,000 mcg PO DAILY calcipotriene 0.005 % Cream 1 appl TOPICAL BID PRN (Reason: scalp) Rx Instructions: rub in gently and completely metoprolol succinate 25 mg Tablet Extended Release 24 Hr 25 mg PO DAILY carbidopa-levodopa 25-100 mg Tablet 1 tab PO TID mometasone 220 mcg/ actuation (120) Aerosol Powdr Breath Activated 2 inh INHALATION BID diclofenac sodium 1 % Gel 2 g TOPICAL QID PRN (Reason: osteoarthritis) Rx Instructions: apply to single elbow, wrist or hand; for hand includes palm/fingers/back of hand duloxetine 60 mg capsule,delayed release(DR/EC) 60 mg PO BID tamsulosin 0.4 mg capsule 0.8 mg PO BEDTIME levalbuterol tartrate 45 mcg/actuation HFA aerosol inhaler 2 inh inhalation Q6H temazepam 15 mg capsule 15 mg PO BEDTIME PRN (Reason: Insomnia) cyclobenzaprine 10 mg tablet 10 mg PO BID PRN (Reason: Back Pain) dicyclomine 20 mg tablet 40 mg PO DAILY esomeprazole magnesium 40 mg capsule,delayed release(DR/EC) 40 mg PO DAILY Anoro Ellipta 62.5-25 mcg/actuation blister with device 1 inh inhalation DAILY guaifenesin 600 mg tablet extended release 12hr 600 mg PO DAILY PRN (Reason: Cough) Diet: Advance to usual diet Activity on Discharge: As tolerated Stand Alone Forms: Patient Portal Discharge page Print Language: Mauritanian Care Plan Goals: Monitor for ongoing bleeding. Outpatient follow up with GI and PCP Health Concerns: Acute GI bleed- suspected to be diverticular in nature Acute blood loss anemia Plan of Treatment: Acute GI bleed with blood loss anemia -Given 4 units packed red blood cells in the ED with appropriate and stable rise in blood counts -Seen by GI. No indication for further imaging or colonoscopy given cessation of bleeding -continue diet as tolerated -Repeat CBC in 3 days -Follow up outpatient with pcp and GI Assessment: See above, see dc summary
--- NOTE | 2023-10-09 14:05 | MHC.EDTECH ---
got patient out of bed and ambulated down hallway, patient walked steady with a 1 assist. patient did not need oxygen while ambulating. patient was placed back in bed
[2023-10-09 14:35] VITALS: BP 120/60; PULSE 80; RESP 14; TEMP 36.8; O2SAT 96
== END 2023-10-09 14:48 | disposition home or self-care (01) | DRG 378 ==
LOC: HO.ED 14:25 → HO.EDOVER 19:38
PROVIDERS: Physician Assistant; Admitting Provider Student in an Organized Health Care Education/Training Program; Emergency Provider Emergency Medicine; PCP Family Medicine; Visit Provider Physician Assistant
DX: K57.31 Diverticulosis of large intestine without perforation or abscess with bleeding (principal); J96.11 Chronic respiratory failure with hypoxia; I10 Essential (primary) hypertension; J47.9 Bronchiectasis, uncomplicated; Z90.2 Acquired absence of lung [part of]; J98.6 Disorders of diaphragm; Z66 Do not resuscitate; N40.0 Benign prostatic hyperplasia without lower urinary tract symptoms; I49.3 Ventricular premature depolarization; I49.1 Atrial premature depolarization; E78.2 Mixed hyperlipidemia; Z99.81 Dependence on supplemental oxygen; Z79.899 Other long term (current) drug therapy
CPT/HCPCS: 36415; 74178; 80048; 80053; 82040; 82310; 83690; 83735; 85014; 85018; 85025; 85027; 85384; 85610; 86850; 86900; 86901; 86923; 99285; J3475; P9016; Q9967

== ENCOUNTER → 2023-10-08 19:21 | Outpatient (BNV) | payer MEDICARE, SELFPAY | PROVIDERS: Admitting Provider Student in an Organized Health Care Education/Training Program; Emergency Provider Emergency Medicine; PCP Family Medicine; Visit Provider Student in an Organized Health Care Education/Training Program | DX: K92.2 Gastrointestinal hemorrhage, unspecified (principal) | CPT/HCPCS: 99223; 99239 ==

== ENCOUNTER 2023-11-12 09:05 | Outpatient (REF) | payer MEDICARE, SELFPAY ==
[2023-11-12 11:48] LABS: MANUAL DIFF FLAG NO
[2023-11-12 11:59] LABS: Basophils Percent Auto 0.7 % (0-2); Eosinophils Absolute Auto 0.1 X10*3/uL (0.0-0.4); Eosinophils Percent Auto 2.1 % (0-4); Hematocrit 44.3 % (42.0-52.0); Hemoglobin 14.5 g/dl (14.0-18.0); Imm Gran Abs Auto 0.01 X10*3/uL (0.00-0.03); Imm Gran Pct Auto 0.2 % (0.0-0.4); Lymphocytes Absolute Auto 1.3 X10*3/uL (1.2-4.9); Mean Corpuscular HGB Conc 32.7 g/dl (31.0-36.0); Mean Corpuscular Hemoglobin 30.5 pg (27.0-33.0); Mean Corpuscular Volume 93.3 fL (80.0-98.0); Mean Platelet Volume 10.1 fL (9.4-12.4); Monocytes Absolute Auto 0.6 X10*3/uL (0.1-1.2); Monocytes Percent Auto 10.6 % (2-11); Neutrophils Absolute Auto 3.6 x10*3/uL (2.0-8.3); Neutrophils Percent Auto 63.4 % (45-73); Platelet Count 237 X10*3/uL (160-400); Red Blood Count 4.75 X10*6/uL (4.60-5.80); Red Cell Distribution Width 14.1 % (11.0-16.0); White Blood Count 5.6 X10*3/uL (4.8-10.8)
== END 2023-11-12 09:06 | disposition home or self-care (01) ==
LOC: HO.WFDLDS 09:05
PROVIDERS: Visit Provider Family Medicine
DX: K92.2 Gastrointestinal hemorrhage, unspecified (principal); E78.00 Pure hypercholesterolemia, unspecified; R53.1 Weakness; Z79.899 Other long term (current) drug therapy
CPT/HCPCS: 36415; 82550; 85025

== ENCOUNTER 2024-05-01 13:38 | Outpatient (REF) | payer MEDICARE, SELFPAY ==
[2024-05-01 13:53] LABS: MANUAL DIFF FLAG NO
[2024-05-01 14:08] LABS: Basophils Percent Auto 0.4 % (0-2); Eosinophils Absolute Auto 0.1 X10*3/uL (0.0-0.4); Eosinophils Percent Auto 2.4 % (0-4); Hematocrit 40.6 % (42.0-52.0); Hemoglobin 13.7 g/dl (14.0-18.0); Imm Gran Abs Auto 0.01 X10*3/uL (0.00-0.03); Imm Gran Pct Auto 0.2 % (0.0-0.4); Lymphocytes Absolute Auto 1.2 X10*3/uL (1.2-4.9); Lymphocytes Percent Auto 23.9 % (20-40); Mean Corpuscular HGB Conc 33.7 g/dl (31.0-36.0); Mean Corpuscular Hemoglobin 29.8 pg (27.0-33.0); Mean Corpuscular Volume 88.5 fL (80.0-98.0); Mean Platelet Volume 9.8 fL (9.4-12.4); Monocytes Absolute Auto 0.6 X10*3/uL (0.1-1.2); Monocytes Percent Auto 12.7 % (2-11); Neutrophils Percent Auto 60.4 % (45-73); Platelet Count 177 X10*3/uL (160-400); Red Blood Count 4.59 X10*6/uL (4.60-5.80); Red Cell Distribution Width 15.7 % (11.0-16.0)
[2024-05-01 14:46] LABS: Alanine Aminotransferase 18 U/L (0-40); Anion Gap 12 (12-20); Aspartate Amino Transferase 32 U/L (5-37); Blood Urea Nitrogen 15 mg/dL (9-16); Carbon Dioxide 33 mmol/L (22-29); Chloride 101 mmol/L (96-108); Estimated Glomerular Filt Rate > 60; Iron 136 mcg/dL (45-160); Percent Iron Saturation 46 % (15-50); Potassium 4.3 mmol/L (3.3-5.1); Sodium 142 mmol/L (135-145); Total Iron Binding Capacity 298 mcg/dL (228-428); Unsaturated Iron Binding 162 ug/dL
== END 2024-05-01 13:39 | disposition home or self-care (01) ==
LOC: HO.LAB 13:38
PROVIDERS: PCP Family Medicine; Visit Provider Family Medicine
DX: I10 Essential (primary) hypertension (principal); E78.00 Pure hypercholesterolemia, unspecified; D50.9 Iron deficiency anemia, unspecified
CPT/HCPCS: 36415; 80051; 82550; 82565; 83540; 84450; 84460; 84520; 85025

== ENCOUNTER 2024-07-22 14:32 | Outpatient (AMB) | payer OTHER, SELFPAY ==
[2024-07-22 14:36] VITALS: BP 147/82; PULSE 93; O2SAT 96
--- NOTE | 2024-07-22 14:36 | MHC.OFFVIS ---
Vital Signs 07/22/24 14:36 Weight 141 lb BP 147/82 H Blood Pressure Location Lt brachial Position Sitting Pulse 93 Pulse Source Pulse Oximeter Pulse Oximetry (%) 96 Oxygen Delivery Method Room Air Intake Visit Reasons: copd Allergies Sulfa (Sulfonamide Antibiotics) [SULFA (SULFONAMIDE ANTIBIOTICS)] Allergy (Severe, Verified 07/22/24 14:39) THROAT SWELLING, DIFF BREATHING, SKIN TURNS PINK HPI HPI copd: Details: 78-year-old gentleman, nonsmoker, with underlying history of bronchiectasis status post right-sided lobectomy in 1960s at [facility], further complicated by what appears to be right-sided diaphragmatic dysfunction with prior sniff test with unclear results, and right-sided atelectasis.? Previously followed by pulmonology at [place].? Patient complains of intermittent exacerbations of his bronchiectasis requiring suppressive antibiotic therapy.? Patient continues to do well on current regimen of Anoro, Asmanex, and albuterol MDI and denies any recent bronchiectasis exacerbations. FOR[facility]LY [facility], [facility] Medical History COPD (chronic obstructive pulmonary disease) Cardiac arrhythmia Surgical History History of lobectomy of lung Family History Father No problems noted. Mother No problems noted. Social History Alcohol intake: current Alcohol intake frequency: 0-2 drinks per day Alcohol type: beer Patient Tobacco Use Status: Never used Tobacco Second Hand Smoke Exposure: No Review of Systems Const Denies daytime sleepiness, Denies excessive sweating, Denies fatigue, Denies fever(s), Denies lethargy, Denies malaise, Denies night sweats, Denies snoring and Denies weight loss Eyes Denies blurry vision and Denies itchy eyes ENT Denies nasal congestion, Denies post nasal drip, Denies sinus pain, Denies sinus pressure and Denies other ( Thrush) Card Denies chest pain, Denies pedal edema, Denies dyspnea, Denies orthopnea and Denies paroxysmal nocturnal dyspnea Resp Denies cough, Denies hemoptysis, Denies excessive phlegm production, Denies dyspnea, Denies snoring and Denies wheezing GI Denies abdominal pain and Denies heartburn Musc Denies myalgias, Denies arthralgias and Denies joint swelling Skin/Breast Denies rash Neuro Denies memory loss and Denies seizure-like activity Psych Denies abnormal sleep pattern, Denies anxiety and Denies memory loss Endo Denies excessive sweating, Denies fatigue and Denies heat intolerance Bacilio/Lymph Denies easy bruising Aller/Immun Denies itchy eyes, Denies seasonal rhinorrhea and Denies wheezing Physical Exam Vital Signs: Last Vital Signs Pulse 93 07/22/24 14:36 BP 147/82 H 07/22/24 14:36 Pulse Ox 96 07/22/24 14:36 Oxygen Delivery Method Room Air 07/22/24 14:36 Const General: no acute distress and alert Nutritional Appearance: not obese Orientation/consciousness: Other orientation findings ( oriented) HEENT Head: Yes atraumatic Eyes General: appearance normal, both eyes and all related structures Sclerae: sclerae normal EOM: EOMs intact bilaterally Neck Neck: Yes supple Lymphatic: no lymphadenopathy noted Resp Effort & Inspection: normal respiratory effort and no use of accessory muscles Auscultation: clear to auscultation bilaterally Cardio Rate: regular rate Rhythm: regular rhythm Heart sounds: no gallops, no murmurs and no rubs Skin General skin exam: other ( warm) Extrem General: No clubbing, No cyanosis and No edema Assessment & Plan Assessment & Plan (1) COPD (chronic obstructive pulmonary disease): Code(s): J44.9 - Chronic obstructive pulmonary disease, unspecified Category: Medical Plan: Well controlled current regimen of Anoro, levalbuterol MDI/nebs. Continue current regimen. (2) Bronchiectasis: Code(s): J47.9 - Bronchiectasis, uncomplicated Category: Medical Plan: No recent exacerbations. Continue to monitor. Will obtain CT chest. (3) Status post lobectomy of lung: Code(s): Z90.2 - Acquired absence of lung [part of] Category: Medical Plan: Continue to monitor with imaging. Orders: Orders PFT pulmonary function test Today J44.9 - Chronic obstructive pulmonary disease, unspecified CT chest wo IV con Today J47.9 - Bronchiectasis, uncomplicated Coding Level of Care Code Est Pt Level 4 (22222) Diagnoses COPD (chronic obstructive pulmonary disease) J44.9 Bronchiectasis J47.9 Status post lobectomy of lung Z90.2
--- OUTSIDE RECORDS SUMMARY | 2024-07-22 17:30 | XMS_ITS | Patient Health Record ---
Author Organization [facility] Address [address] [place] [id number] Care Team Providers Care Trading Assistant Name Role Phone Randy Bradshaw MD Primary Care Provider Unavailab Romero Matthew Unavailable [phone] Stephanie JOHNSON, Belia Unavailable Unavailable Allergies Allergen (clinical drug ingredient) Drug/Non Drug Allergy documented on EMR Reaction Allergy Type Onset Date Status Sulfa Unknown Drug Allergy Active Reason For Referral No Information Medications Medication SIG (Take, Route, Frequency, Duration) Notes [...] times a day for 30 day(s) Active Immunizations Vaccine Route Administration Date Status Comme nts Flu vaccine no Preserv 3 and > Unknown 11/25/2013 Admin istered Flu vaccine no Preserv 3 and > Unknown 11/03/2014 Admin istered Flu vaccine no Preserv 3 and > Unknown 12/03/2014 Admin istered Influenza Unknown 10/13/2020 Administered Problems Problem Type SNOMED Code ICD Code Onset Dates Problem Status W/U Status Risk Notes Problem 327089330 Gastro-esophagea l reflux disease without esophagitis (K21.9) Active confirmed Problem History of adenomatous polyp of colon (450334470) History of adenomatous polyp of colon (Z86.010) Active confirmed Problem 18328504 Irritable bowel syndrome without diarrhea (K58.9) Active confirmed Problem 9845279 Melena (K92.1) Active confirmed Problem Gastroesophageal reflux disease (981399259) Gastroesophageal reflux disease (K21.9) Active confirmed Problem 705016752 Barretts esophag us without dysplasia (K22.70) Active confirmed Problem Hiatal hernia (77781097) Hiatal hernia (K44.9) Active confirmed Problem Anemia (693438331) Anemia (D64.9) Active confir med Problem 69169475 Lower GI hemorrhage (K92.2) Active confirmed Problem 491968808 Abnormal finding on GI tract imaging (R93.3) Active confirmed Problem 359300564 Abnormal CT scan , colon (R93.3) Active confirmed Problem Gastritis (5177492) Gastritis (K29.70) Active c onfirmed Problem 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 Problem Diverticulosis of colon (442945153) Diverticulosis of colon (K57.30) Active confirmed Problem 961590538 Anemia due to acute blood loss (D62) Active confirmed Plan Of Treatment Future Test Test Name Order Date COLONOSCOPY 12/03/2014 UPPER GI ENDOSCOPY 02/02/2021 COLONOSCOPY 02/02/2021 Insurance Providers Payer Name Payer Address Payer Phone Subscriber Number Group Number Insured Name Patient Relationship to Insured Coverage Start Date Coverage End Date MEDICARE OF [place] [address] [place] [id number] BURKE PEDROZA Self - patient is the insured [employer] ATT[employer] CLAIMS [address] [place] [address] [phone] [id number] BURKE PEDROZA Self - patient is the insured Medical (General) History Medical History History ICD Code Colonoscopy 04-21-2008--no [...] catheterization in 2008 - Dr. Mcfadden Denies VT,DM,CVA,renal disease Spinal stenosis and scoliosis-goes to [place] in clinic-on chronic pain meds CT scan of the chest in [facility] 2014 described an elevated right hemidiaphragm with [...] diverticulitis or ischemic colitis Colonoscopy in February 16 was negative except for diverticulosis and hemorrhoids [...]
== END 2024-07-22 15:10 | disposition home or self-care (01) ==
LOC: HO.HPS 14:33
PROVIDERS: PCP Family Medicine; Visit Provider Internal Medicine Pulmonary Disease
DX: J44.9 Chronic obstructive pulmonary disease, unspecified (principal); J47.9 Bronchiectasis, uncomplicated; Z90.2 Acquired absence of lung [part of]
CPT/HCPCS: 99214

== ENCOUNTER → 2024-07-22 14:32 | Outpatient (BNVA) | payer OTHER, SELFPAY | PROVIDERS: PCP Family Medicine; Visit Provider Internal Medicine Pulmonary Disease | DX: Z90.2 Acquired absence of lung [part of] (principal); J44.9 Chronic obstructive pulmonary disease, unspecified; J47.9 Bronchiectasis, uncomplicated | CPT/HCPCS: 99212 ==

== ENCOUNTER 2024-08-02 10:17 | Outpatient (REF) | payer OTHER, SELFPAY ==
--- NOTE | ~2024-08-02 | CT_ITS ---
CLINICAL HISTORY: J47.9 - Bronchiectasis, uncomplicated CT chest without contrast Comparison: None provided Findings: The heart size is normal. The visualized thyroid and mediastinum are unremarkable. Prior right lower lobectomy. Moderate elevation of the right hemidiaphragm. Mild bronchiectasis within the right upper lobe. Small calcified granulomas within the left upper and lower lobes. Linear foci of atelectasis or scarring within the right middle lobe. The visualized upper abdomen is unremarkable. No acute fractures. IMPRESSION: 1. There is a mild degree of bronchiectasis within the right upper lobe. 2. Prior right lower lobectomy. This document has been electronically signed by: Norma Espana MD on 08/05/2024 14:49:41
== END 2024-08-02 10:18 | disposition home or self-care (01) ==
LOC: HO.CT 10:17
PROVIDERS: PCP Family Medicine; Visit Provider Internal Medicine Pulmonary Disease
DX: J47.9 Bronchiectasis, uncomplicated (principal)
CPT/HCPCS: 71250

== ENCOUNTER → 2024-08-02 10:21 | Outpatient (BNV) | payer OTHER, SELFPAY | PROVIDERS: PCP Family Medicine; Visit Provider Radiology Diagnostic Radiology | DX: J47.9 Bronchiectasis, uncomplicated (principal) | CPT/HCPCS: 71250 ==

== ENCOUNTER 2024-08-06 10:59 | Outpatient (REF) | payer OTHER, SELFPAY ==
--- OUTSIDE RECORDS SUMMARY | 2024-08-06 13:02 | XMS_ITS | Patient Health Record ---
Author Organization [facility] Address [address] [place] [id number] Care Team Providers Care It Support Specialist Name Role Phone Randy Bradshaw MD Primary Care Provider Unavailab Romero Matthew Unavailable [phone] Stephanie JOHNSON, Belia Unavailable Unavailable Allergies Allergen [...] Problem Status W/U Status Risk Notes Problem 510330519 Gastro-esophagea l reflux disease without esophagitis (K21.9) Active confirmed Problem History of adenomatous polyp of colon (033891797) History of adenomatous polyp of colon (Z86.010) Active confirmed Problem 35727819 Irritable bowel syndrome without diarrhea (K58.9) Active confirmed Problem 7413386 Melena (K92.1) Active confirmed Problem Gastroesophageal reflux disease (513918545) Gastroesophageal reflux disease (K21.9) Active confirmed Problem 467877674 Barretts esophag us without dysplasia (K22.70) Active confirmed Problem Hiatal hernia (80130028) Hiatal hernia (K44.9) Active confirmed Problem Anemia (D64.9) Active confirmed Problem 24424755 Lower GI hemorrhage (K92.2) Active confirmed Problem 496814905 Abnormal finding on GI tract imaging (R93.3) Active confirmed Problem 938915472 Abnormal CT scan , colon (R93.3) Active confirmed Problem Gastritis (0636286) Gastritis (K29.70) Active c onfirmed Problem 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 Problem Diverticulosis of colon (985757500) Diverticulosis of colon (K57.30) Active confirmed Problem 578088579 Anemia due to acute blood loss (D62) Active confirmed Plan Of Treatment Future Test Test Name Order Date COLONOSCOPY 12/03/2014 UPPER GI ENDOSCOPY 02/02/2021 COLONOSCOPY 02/02/2021 Insurance Providers Payer Name Payer Address Payer Phone Subscriber Number Group Number Insured Name Patient Relationship to Insured Coverage Start Date Coverage End Date MEDICARE OF [place] [address] [place] [address] [phone] [id number] BURKE PEDROZA Self - patient is the insured [employer] CLAIMS [address] [place] [phone] [id number] BURKE PEDROZA Self - patient is the [...] catheterization in 2008 - Dr. Mcfadden Denies DC,DM,CVA,renal disease Spinal stenosis and scoliosis-goes to pa in clinic-on chronic pain meds CT scan of the chest in [facility] 2014 described an elevated right hemidiaphragm [...]
--- NOTE | 2024-08-06 13:34 | PFT_ITS ---
Flows: FEV1: 75 % of predicted at 2.01 L FVC: 72 % of predicted at 2.58 L FEV1/FVC: 78 % Bronchodilator response: Present in small to medium airways only. Volumes: Total lung capacity: 72 % of predicted at 4.59 L Residual volume: 77 % of predicted at 1.90 L Slow vital capacity: 72 % of predicted at 2.69 L Expiratory reserve volume: 105 % of predicted at 1.11 L Diffusion capacity: Mildly decreased, corrects to normal after adjustment for alveolar ventilation. Impression: Moderate restrictive ventilatory defect with bronchodilator response present in small to medium airways only. Combination of decreased diffusion capacity with restrictive ventilatory defect suggests underlying pulmonary parenchymal disease. Clinical correlation is advised. MTDD
[2024-08-06 15:46] VITALS: PULSE 92; O2SAT 99
== END 2024-08-06 11:00 | disposition home or self-care (01) ==
LOC: HO.RESP 10:59
PROVIDERS: PCP Family Medicine; Visit Provider Internal Medicine Pulmonary Disease
DX: J44.9 Chronic obstructive pulmonary disease, unspecified (principal)
CPT/HCPCS: 94010; 94640; 94727; 94729

== ENCOUNTER → 2024-08-06 13:34 | Outpatient (BNV) | payer OTHER, SELFPAY | PROVIDERS: PCP Family Medicine; Visit Provider Internal Medicine Pulmonary Disease | DX: J44.9 Chronic obstructive pulmonary disease, unspecified (principal) | CPT/HCPCS: 94060; 94727; 94729 ==

== ENCOUNTER 2024-08-08 13:50 | Outpatient (AMB) | payer OTHER, SELFPAY ==
--- OUTSIDE RECORDS SUMMARY | 2024-08-06 08:02 | XMS_ITS | Continuity of Care Document ---
Author Name [facility] Organization [facility] Care Team Providers Care Scrip Clerk Name Role Phone [facility] Unavailable Unavailable Problems Combined list of problems from Department of Defense and Veterans Affairs facilities. It does not include entries that were removed or entered in error. Problem Status Onset Date Problem Type Date of Resolution Comments Source Asthma (SNOMED CT 829610367) Active Condition [facility] Goyal's esophagus (SNOMED CT 446196597) Active Condition [facility] Benign essential hypertension Active Condition [facility] Bronchiectasis (SNOMED CT 41129332) Active Condition [facility] Cataract, Cortical (Senile) Active Condition [facility] Cervical spondylosis without myelopathy Active Condition [facility] Choroidal Nevus Active Condition [facility] Constipation (SNOMED CT 52364526) Active Condition [facility] Crohn's disease Active Condition Jun 03, 2024 Entered By: WOODY KELLOGG Comment: no longer on any meds, sees Dr. Manzano [facility] Fibromyalgia Active Condition [facility] Gastroesophageal reflux disease (SNOMED CT 799144411) Active Condition [facility] Generalized anxiety disorder Active Condition [facility] Hip pain (SNOMED CT 57646176) Active Condition [facility] Hypertrophy (Benign) of Prostate without Urinary obstruction Active Condition [facility] Insomnia Active Condition [facility] Low back pain Active Condition [facility] Mild protein-calorie malnutrition (weight for age 75-89 percent of standard) Active Condition Jun 03, 2024 Entered By: WOODY KELLOGG Comment: improved weight with ensure [facility] Neuropathy Active Condition [facility] Open Angle, Glaucoma Unspec Active Condition [facility] Paralysis of diaphragm Active Condition [facility] Parkinsons disease Active Condition O ct 2023 Entered By: WOODY KELLOGG Comment: recent fall 09/05/23- frontal skull fx, nonsurgical [facility] Primary generalized osteoarthritis Active Condition [facility] Raynaud phenomenon Active Condition [facility] [place] Hearing Loss Active Condition [facility] Spinal stenosis of lumbar region (ICD-9-CM 724.02) Active Condition [facility] ACCRETIONS ON TEETH Inactive Condition 08/12/2008 [facility] ACUTE BRONCHITIS Inactive Condition 12/29/2002 [facility] PERIODONTITIS NOS Inactive Condition 12/25/2006 [facility] CHRONIC PERIODONTITIS Inactive Condition 12/25/2006 [facility] DENTAL DISORDER NOS Inactive Condition 12/25/2006 [facility] GINGIV/PERIODONT DIS NOS Inactive Condition 04/22/2007 [facility] Glaucoma, Suspect Inactive Condition 10/29/2007 [facility] Hypercholesterolemia (SNOMED CT 75930007) Inactive Condition 09/20/2022 [facility] Myalgia * (ICD-9-CM 729.1) Inactive Condition 10/29/2007 [facility] Other Malaise and Fatigue (ICD-9-CM 780.79) Inactive Condition 04/22/2007 [facility] Palpitations Inactive Condition 04/22/2007 [facility] Raynaud's Disease Inactive Condition 09/20/2022 [facility] Refractive error (ICD-9-CM 367.9) Inactive Condition 10/29/2007 [facility] REGIONAL ENTERITIS NOS Inactive Condition 12/26/2006 [facility] UNSPECIFIED DENTAL CARIES Inactive Condition 12/04/2005 [facility] Diagnosis: ICD-10-CM M54.50 Low back pain, unspecified Active Diagnosis [facility] Diagnosis: ICD-10-CM G89.29 Other chronic pain Active Diagnosis [facility] Diagnosis: ICD-10-CM E44.1 Mild protein-calorie malnutrition Active Diagnosis [facility] Diagnosis: ICD-10-CM Z46.1 Encounter for fitting and adjustment of hearing aid Active Diagnosis [facility] Diagnosis: ICD-10-CM M79.7 Fibromyalgia Active Diagnosis [facility] Diagnosis: ICD-10-CM K08.9 Disorder of teeth and supporting structures, unspecified Active Diagnosis [facility] Diagnosis: ICD-10-CM K03.6 Deposits [accretions] on teeth Active Diagnosis [facility] Diagnosis: ICD-10-CM Z46.0 Encounter for fit/adjst of spectacles and contact lenses Active Diagnosis [facility] Diagnosis: ICD-10-CM H40.1131 Primary open-angle glaucoma, bilateral, mild stage Active Diagnosis [facility] Diagnosis: ICD-10-CM G20.A1 Parkinson's dis w/o dyskinesia, w/o mention of fluctuations Active Diagnosis [facility] Diagnosis: ICD-10-CM H90.3 Sensorineural hearing loss, bilateral Active Diagnosis [facility] Diagnosis: ICD-10-CM H90.A32 Mix cndct/snrl hear loss,uni,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 Active Diagnosis [facility] Diagnosis: ICD-10-CM K08.199 Complete loss of teeth due to oth cause, unspecified class Active Diagnosis [facility] Diagnosis: ICD-10-CM G62.9 Polyneuropathy, unspecified Active Diagnosis [facility] Diagnosis: ICD-10-CM K08.531 Fractured dental restorative material with loss of material Active Diagnosis [facility] Diagnosis: ICD-10-CM J47.9 Bronchiectasis, uncomplicated Active Diagnosis [facility] Medications Combined list of outpatient medications from Department of Defense and [facility] facilities.Medications provided include 1) outpatient medications from the last 15 months, and 2) patient-reported medications. Medication Details Route Status Patient Instructions Prescription Expires Prescription Number Last Dispense Date Ordering Provider Order Date Order Qty Source ACETAMINOPH EN 500MG TAB TAKE TWO TABLETS BY MOUTH TWICE DAILY FOR PAIN ORAL ACTIVE 02/01/2025 [id number] FURCOLO,T LORETO 2023 400 [facility] ATORVASTATI N CA 40MG TAB TAKE ONE-HALF TABLET BY MOUTH ONCE DAILY FOR CHOLESTE ROL ORAL ACTIVE 06/04/2025 [id number] 5 FURCOLO,T LORETO [address] [facility] ATORVASTATI N CA 40MG TAB TAKE ONE-HALF TABLET BY MOUTH ONCE DAILY FOR CHOLESTE ROL ORAL DISCONT INUED 04/16/2024 [id number] 4 SARAH HARRIS JAWED 2023 45 [facility] CALCIPOTRIE NE 0.005% CREAM,TOP APPLY A SMALL AMOUNT TOPICALL Y TWICE DAILY APPLY ON THE SCALP TOPICA L 04/16/2024 [id number] 4 SARAH HARRIS JAWGARTH 2023 60 [facility] CARBIDOPA 25MG/LEVODO PA 100MG TAB TAKE 1 TABLET BY MOUTH THREE TIMES A DAY FOR PARKINSO N SYMPTOMS ORAL DISCONT INUED BY PROVIDE R 04/16/2024 [id number] SARAH HARRIS JAWGARTH 2023 270 [facility] CODEINE 30MG/ACETAM INOPHEN 300MG TAB TAKE 1 TABLET BY MOUTH ONCE DAILY NEEDED FOR PAIN ORAL DISCONT INUED 03/02/2024 [id number] FURCOLO,T LORETO 2023 30 [facility] CODEINE 30MG/ACETAM INOPHEN 300MG TAB TAKE 1 TABLET BY MOUTH THREE TIMES A DAY FOR PAIN ORAL DISCONT INUED 10/10/2023 [id number] 4 [facility] 2023 90 [facility] CODEINE 30MG/ACETAM INOPHEN 300MG TAB TAKE 1 TABLET BY MOUTH ONCE DAILY NEEDED FOR PAIN ORAL 07/03/2024 [id number] 5 FURCOLO,T LORETO 2024 30 [facility] CODEINE 30MG/ACETAM INOPHEN 300MG TAB TAKE 1 TABLET BY MOUTH THREE TIMES DAILY NEEDED FOR PAIN ORAL 10/27/2023 [id number] SKIP WALKER D 2023 90 [facility] CYANOCOBALA MIN 1000MCG TAB TAKE ONE TABLET BY MOUTH EVERY DAY FOR VITAMIN SUPPLEME NTATION ORAL ACTIVE 02/01/2025 [id number] 5 FURCOLO,T LORETO 2024 90 [facility] CYANOCOBALA MIN 1000MCG TAB TAKE ONE TABLET BY MOUTH EVERY DAY FOR VITAMIN SUPPLEME NTATION ORAL DISCONT INUED 04/09/2024 [id number] 4 [facility] 2023 90 [facility] CYCLOBENZAP RINE HCL 10MG TAB TAKE ONE TABLET BY MOUTH TWICE DAILY NEEDED FOR BACK PAIN ORAL DISCONT INUED (EDIT) 04/09/2024 [id number] 4 [facility] 2023 60 [facility] CYCLOBENZAP RINE HCL 5MG TAB TAKE ONE TABLET BY MOUTH ONCE DAILY NEEDED FOR MUSCLE SPASM FOR BACK PAIN DOSE REDUCTIO N- PLEASE CHANGE DOSE AT NEXT REFILL REQUEST, NOT NEEDED NOW ORAL ACTIVE 12/04/2024 [id number] FURCOLO,T LORETO 2023 30 [facility] DICLOFENAC NA 1% GEL,TOP APPLY 2 GRAMS TOPICALL Y FOUR TIMES A DAY FOR OSTEOART HRITIS - USE DOSING CARD PROVIDED IN BOX APPLY TO AFFECTED AREAS DIRECTED TOPICA L ACTIVE 06/04/2025 [id number] 5 FURCOLO,T LORETO 2024 100 [facility] DICLOFENAC NA 1% GEL,TOP APPLY 2 GRAMS TOPICALL Y FOUR TIMES A DAY FOR OSTEOART HRITIS - USE DOSING CARD PROVIDED IN BOX APPLY TO AFFECTED AREAS DIRECTED TOPICA L DISCONT INUED 04/09/2024 [id number] 4 [facility] 2023 100 [facility] DILTIAZEM (EQV-TIAZAC AB4) 180MG 24HR CAP TAKE ONE CAPSULE BY MOUTH ONCE DAILY FOR BLOOD PRESSURE AND HEART ORAL ACTIVE 06/04/2025 [id number] 5 FURCOLO,T LORETO 2024 90 [facility] DILTIAZEM (EQV-TIAZAC AB4) 180MG 24HR CAP TAKE ONE CAPSULE BY MOUTH ONCE DAILY FOR BLOOD PRESSURE AND HEART ORAL DISCONT INUED 04/09/2024 [id number] 4 [facility] JAWED 2023 90 [facility] DOCUSATE NA 50MG/SENNOS IDES 8.6MG TAB TAKE 2 TABLETS BY MOUTH TWICE DAILY ORAL ACTIVE 02/01/2025 [id number] 5 FURCOLO,T LORETO 2024 120 [facility] DOCUSATE NA 50MG/SENNOS IDES 8.6MG TAB TAKE 2 TABLETS BY MOUTH TWICE DAILY ORAL DISCONT INUED 04/09/2024 [id number] 4 [facility] JAWED 2023 120 [facility] DULOXETINE HCL 60MG CAP,EC TAKE ONE CAPSULE BY MOUTH TWICE DAILY FOR CHRONIC MUSCLE OR BONE PAIN ORAL ACTIVE 06/04/2025 [id number] 5 FURCOLO,T LORETO 2024 180 [facility] DULOXETINE HCL 60MG CAP,EC TAKE ONE CAPSULE BY MOUTH TWICE DAILY FOR CHRONIC MUSCLE OR BONE PAIN ORAL DISCONT INUED 09/06/2024 [id number] 5 RA DEVORA NORIEGA 2023 180 [facility] DULOXETINE HCL 60MG CAP,EC TAKE ONE CAPSULE BY MOUTH TWICE DAILY FOR CHRONIC MUSCLE OR BONE PAIN ORAL DISCONT INUED 04/09/2024 [id number] [facility] JAWED 2023 180 [facility] ENSURE PLUS LIQUID VANILLA DRINK 1 CAN BY MOUTH ONCE DAILY FOR NUTRITIO NAL SUPPLEME NTATION ORAL ACTIVE 12/04/2024 [id number] FURCOLO,T LORETO 2023 24 [facility] ESOMEPRAZOL E MAGNESIUM 40MG CAP,EC TAKE ONE CAPSULE BY MOUTH TWICE DAILY FOR GASTROES OPHAGEAL REFLUX DISEASE ORAL ACTIVE 02/01/2025 [id number] FURCOLO,T LORETO 2023 180 [facility] ESOMEPRAZOL E MAGNESIUM 40MG CAP,EC TAKE TWO CAPSULES BY MOUTH EVERY DAY ORAL 07/15/2023 [id number] 4 [facility] JAWED 2023 180 [facility] LEVALBUTERO L 45MCG/SPRAY INHL,ORAL,1 5GM INHALE 2 PUFFS BY MOUTH FOUR TIMES A DAY RESPIR ATORY (INHAL ATION) ACTIVE 06/04/2025 [id number] 5 FURCOLO,T LORETO 2024 2 [facility] LEVALBUTERO L 45MCG/SPRAY INHL,ORAL,1 5GM INHALE 2 PUFFS BY MOUTH FOUR TIMES A DAY RESPIR ATORY (INHAL ATION) DISCONT INUED 04/09/2024 [id number] 5 [facility] 2023 2 [facility] LIDOCAINE 4% CREAM,TOP APPLY A SMALL AMOUNT TOPICALL Y TWICE DAILY NEEDED FOR PAIN TOPICA L ACTIVE 06/04/2025 [id number] 5 FURCOLO,T LORETO 2024 90 [facility] LIDOCAINE 4% CREAM,TOP APPLY A SMALL AMOUNT TOPICALL Y TWICE DAILY NEEDED FOR PAIN TOPICA L DISCONT INUED 04/09/2024 [id number] 5 [facility]MED JAWED 2023 90 [facility] METOPROLOL SUCCINATE 25MG TAB,SA TAKE ONE TABLET BY MOUTH ONCE DAILY FOR BLOOD PRESSURE /HEART ORAL ACTIVE 02/01/2025 [id number] 5 FURCOLO,T LORETO 2024 90 [facility] METOPROLOL SUCCINATE 25MG TAB,SA TAKE ONE TABLET BY MOUTH ONCE DAILY FOR BLOOD PRESSURE /HEART ORAL DISCONT INUED 04/09/[id number] [facility] AMMED JAWED 2023 90 [facility] MOMETASONE FUROATE 220MCG/INHL INHL,ORAL,1 20 INHALE 2 PUFFS BY MOUTH TWICE DAILY --RINSE MOUTH AFTER EACH USE 30 DAY SUPPLY INHALER RESPIR ATORY (INHAL ATION) ACTIVE 06/04/2025 [id number] 5 FURCOLO,T LORETO 2024 3 [facility] MOMETASONE FUROATE 220MCG/INHL INHL,ORAL,1 20 INHALE 2 PUFFS BY MOUTH TWICE DAILY --RINSE MOUTH AFTER EACH USE 30 DAY SUPPLY INHALER RESPIR ATORY (INHAL ATION) DISCONT INUED 04/09/2024 [id number] STEVENSARAH JAWED 2023 3 [facility] NALOXONE HCL 4MG/SPRAY SOLN,SPRAY, NASAL INSTILL 1 SPRAY ONE NOSTRIL ONE TIME NEEDED FOR OPIOID OVERDOSE CALL 911 WITH ADMINIST RATION. REPEAT WITH SECOND DEVICE IF SYMPTOMS RETURN NASAL 10/27/2023 [id number] SKIP WALKER D 2023 2 [facility] OXYGEN MISCELLANEO US USE O2 4L NC DIRECTED QD NOT APPLIC ABLE ACTIVE STEVENSARAH RAUSCH JAWED 2018 [facility] TAMSULOSIN HCL 0.4MG CAP TAKE TWO CAPSULES BY MOUTH EVERY DAY ORAL ACTIVE 06/04/2025 [id number] BESS,T LORETO 2024 180 [facility] TAMSULOSIN HCL 0.4MG CAP TAKE TWO CAPSULES BY MOUTH EVERY DAY ORAL DISCONT INUED 04/09/2024 [id number] STEVENSARAH RAUSCH JAWED 2023 180 [facility] TEMAZEPAM 15MG CAP TAKE ONE CAPSULE BY MOUTH AT BEDTIME ORAL DISCONT INUED (EDIT) 05/14/2024 [id number] BESS,T LORETO 2023 30 [facility] TEMAZEPAM 15MG CAP TAKE ONE CAPSULE BY MOUTH AT BEDTIME ORAL 10/10/2023 [id number] 4 SARAH HARRIS JAWED 2023 30 [facility] TEMAZEPAM 7.5MG CAP TAKE ONE CAPSULE BY MOUTH AT BEDTIME FOR CHRONIC TROUBLE SLEEPING ORAL ACTIVE 12/04/2024 [id number] 5 FURGIOVANNY,T LORETO 2024 30 [facility] TEMAZEPAM 7.5MG CAP TAKE ONE CAPSULE BY MOUTH AT BEDTIME FOR CHRONIC TROUBLE SLEEPING ORAL DISCONT INUED 06/05/2024 [id number] FURCOLO,T LORETO 2023 30 [facility] KORYECLIMAYNORU M 62.5MCG/ESPINOZA ANTEROL 25MCG/ACTUA T INH,ORAL,30 D INHALE 1 INHALATI ON BY MOUTH ONCE DAILY RESPIR ATORY (INHAL ATION) ACTIVE 06/04/2025 [id number] 5 FURCOLO,T LORETO 2024 3 [facility] UMECLIDINIU M 62.5MCG/ESPINOZA ANTEROL 25MCG/ACTUA T INH,ORAL,30 D INHALE 1 INHALATI ON BY MOUTH ONCE DAILY RESPIR ATORY (INHAL ATION) DISCONT INUED 04/09/2024 [id number] 4 SARAH HARRIS AMMED JAWED 2023 3 [facility] Allergies, Adverse Reactions, Alerts Combined list of allergies from Department of Defense and Veterans Affairs facilities. It does not include entries that were removed or entered in error. Substance Category Reaction Severity Reaction type Status Date Reported Comments Source ALPHAGAN 0.2% OPH SOLUTION Propensity to adverse reactions to drug (finding) Watery eye, Red eye active 9 [facility] OXYCODONE Propensity to adverse reactions to drug (finding) Delirium MILD active 5 [facility] SPIRIVA Propensity to adverse reactions to drug (finding) Xerostomia active 9 [facility] SULFAMETHOXA ZOLE Propensity to adverse reactions to drug (finding) active 4 [facility] SULFUR Propensity to adverse reactions to drug (finding) active 5 [facility] TRAVATAN Z Propensity to adverse reactions to drug (finding) Watery eye, Red eye active 9 [facility] Immunizations Combined list of available immunizations from the Department of Defense and Veterans Affairs facilities. Immunization Series Date Given Administered By Site Reaction Lot Number CVX Code Drug [employer] Status Comments Source INFLUENZA, UNSPECIFIED FORMULATION 2023 88 complet ed Completed Series, HISTORICA L INFORMATI ON - FROM PATIENT'S RECALL, [facility] RSV, BIVALENT, PROTEIN SUBUNIT RSVPREF, DILUENT RECONSTITUTED , 0.5 ML, PF 2022 NICOLE POWELL HY E LEFT DELTO ID [id number] 305 complet ed [facility] [place], [facility] COVID-19 (PFIZER), MRNA, LNP-S, PF, KEYSHA-SUCROSE, 30 MCG/0.3 ML (AGES 12+ YEARS) 6 2022 RIGHT DELTO ID 309 complet ed HISTORICA L INFORMATI ON - FROM OTHER REGISTRY, Lot#: [id number] Mfr: [employer] [facility] INFLUENZA, UNSPECIFIED FORMULATION 2022 88 complet ed HISTORICA L INFORMATI ON - FROM OTHER REGISTRY, High dose flu [facility] COVID-19 (MODERNA), MRNA, LNP-S, BIVALENT BOOSTER, PF, 50 MCG/0.5 ML OR 25MCG/0.25 ML DOSE 1 2021 229 complet ed [facility] INFLUENZA, UNSPECIFIED FORMULATION 2021 88 complet ed [facility] COVID-19 (PFIZER), MRNA, LNP-S, PF, 30 MCG/0.3 ML DOSE 2021 208 complet ed Booster for Series, [facility] COVID-19 (MODERNA), MRNA, LNP-S, PF, 100 MCG OR 50 MCG DOSE 3 2020 207 complet ed [facility] INFLUENZA, UNSPECIFIED FORMULATION 2020 88 complet ed [facility] ZOSTER RECOMBINANT 2 2020 187 complet ed [facility] COVID-19 (MODERNA), MRNA, LNP-S, PF, 100 MCG/0.5 ML DOSE 2 2020 207 complet ed [facility] COVID-19 (MODERNA), MRNA, LNP-S, PF, 100 MCG/0.5 ML DOSE 1 2020 207 complet ed [facility] ZOSTER RECOMBINANT 1 2019 187 complet ed [facility] INFLUENZA, UNSPECIFIED FORMULATION 2019 88 complet ed [facility] INFLUENZA VACCINE, QUADRIVALENT, ADJUVANTED 2019 205 complet ed HISTORICA L INFORMATI ON - FROM OTHER PROVIDER, Partner: [facility]. Administe red by: KARYN CANNON (AWN=[phone]). Partner 05 Lot#: [id number] Mfr: [employer]; Dosage: 0.5 [facility] PNEUMOCOCCAL CONJUGATE PCV 13 2019 133 complet ed HISTORICA L INFORMATI ON - FROM OTHER PROVIDER, Partner: [facility]. Administe red by: KARYN CANNON (WLK=[phone]). Partner 05 Lot#: [id number] Mfr: [employer]; Dosage: 0.5 [facility] INFLUENZA, SEASONAL, INJECTABLE 2018 141 complet ed [facility] INFLUENZA, SEASONAL, INJECTABLE 2017 141 complet ed [facility] INFLUENZA, SEASONAL, INJECTABLE 2016 141 complet ed [facility] FLU,3 YRS (HISTORICAL) 2016 88 complet ed [facility] FLU,3 YRS (HISTORICAL) 2014 88 complet ed [facility] DTAP, UNSPECIFIED FORMULATION 2014 107 complet ed ER @ [facility] PNEUMOCOCCAL CONJUGATE PCV 13 2013 133 complet ed [facility] FLU,3 YRS (HISTORICAL) 2013 88 complet ed Selvin Chávez in [facility] on [facility] FLU,3 YRS (HISTORICAL) 2012 88 complet ed [facility] FLU,3 YRS (HISTORICAL) 2011 88 complet ed high dose [facility] PNEUMOCOCCAL, UNSPECIFIED FORMULATION 2011 109 complet ed [facility] ZOSTER LIVE 2011 RAVINDRA WILLIS 121 complet ed [facility] FLU,3 YRS (HISTORICAL) 2010 88 complet ed Site: Right Deltoid [facility] DTAP, UNSPECIFIED FORMULATION 2010 107 complet ed Site: Right Deltoid [facility] FLU,3 YRS (HISTORICAL) 2009 88 complet ed Site: Left Deltoid [facility] NOVEL INFLUENZA-H1N 1-09, ALL FORMULATIONS 2008 128 complet ed [facility] FLU,3 YRS (HISTORICAL) 2008 88 complet ed Site: Right Deltoid [facility] FLU,3 YRS (HISTORICAL) 2007 88 complet ed Site: Left Deltoid [facility] FLU,3 YRS (HISTORICAL) 2006 88 complet ed Site: Left Deltoid [facility] FLU,3 YRS (HISTORICAL) 2005 88 complet ed [facility] FLU,3 YRS (HISTORICAL) 2003 JOSH TURNER 88 complet ed [facility] FLU,3 YRS (HISTORICAL) 2002 FIDELINA COURTNEY RET 88 complet ed [facility] FLU,3 YRS (HISTORICAL) 2001 JOSH TURNER 88 complet ed [facility] FLU,3 YRS (HISTORICAL) 2000 ALLIE COOK 88 complet ed [facility] PNEUMOCOCCAL, UNSPECIFIED FORMULATION 2000 ALLIE COOK 109 complet ed [facility] FLU,3 YRS (HISTORICAL) 1999 BRIAN JAMES IA T 88 complet ed [facility] FLU,3 YRS (HISTORICAL) 1998 CESAAR GONZALES 88 complet ed [facility] INFLUENZA, UNSPECIFIED FORMULATION 1997 BERNADINE TERRY M 88 complet ed [facility] INFLUENZA, UNSPECIFIED FORMULATION 1996 ERINN BRIGHT 88 comple t ed [facility] INFLUENZA, UNSPECIFIED FORMULATION 1995 DERIK MALDONADO 88 complet ed [facility] Results Combined list of recent chemistry, hematology and other laboratory results from Department of Defense and Veterans Affairs, ranging from 15 months to all on record, depending upon the facility. Order Name Results Value Reference Range Date Interpretation Specimen Comments Source LIPID PANEL, NON FASTING CHOLESTERO L [MASS/VOLU ME] IN SERUM OR PLASMA 208 mg/dL 11/28 H Specimen Type: SERUM No comment entered. Ordering Provider: LEIGHANN KELLOGG Report Released Date/Time: Nov 15, 2023 03:04 PM Reporting Lab: [facility] [place] [facility] [address] [id number] Performing Lab[facility] [place] [facility] [address] [facility] [id number] [facility] [place] [facility] LIPID PANEL, NON FASTING TRIGLYCERI DE [MASS/VOLU ME] IN SERUM OR PLASMA 131 mg/dL 0 - 150 11/28 Specimen Type: SERUM No comment entered. Ordering Provider: LEIGHANN KELLOGG Report Released Date/Time: Nov 15, 2023 03:04 PM Reporting Lab: [facility] [place] [facility] [address] [facility] [phone] Performing Lab: [facility]ITALRTAYLOR [facility]TRN [facility] [address] [facility] [address] [facility] LIPID PANEL, NON FASTING CHOLESTERO L IN LDL [MASS/VOLU ME] IN SERUM OR PLASMA BY RANJANA Benjamin 71 mg/dL 0 - 129 11/28 Specimen Type: SERUM No comment entered. Ordering Provider: LEIGHANN KELLOGG Report Released Date/Time: Nov 15, 2023 03:04 PM Reporting Lab: [facility]ITALRRANDOL[facility]ERN [facility]ENTERUSEUNITED [facility] [address] [phone] Performing Lab: [facility]ITALRRANDOL[facility]ENTERN [facility] CENTERUSE[address] [address] [facility] LIPID PANEL, NON FASTING CHOLESTERO L.TOTAL/CH OLESTEROL IN HDL [MASS RATIO] IN SERUM OR PLASMA 1.9 11/28 Specimen Type: SERUM No comment entered. Ordering Provider: LEIGHANN KELLOGG Report Released Date/Time: Nov 15, 2023 03:04 PM Reporting Lab: [facility] HOSPITALRRANDOLPH MEDICAL CENTERN [facility] CENTERUSEUNITED HEALTH SERVICES [address] [facility] [address] Performing Lab: [facility]PITALRRANDOLPH MEDICAL CENTERN [facility] MEDICAL CENTERUSE[address] [address] [facility] CENTERUSE [facility] LIPID PANEL, NON FASTING CHOLESTERO L IN HDL [MASS/VOLU ME] IN SERUM OR PLASMA 111 mg/dL 40 - 60 11/28 H Specimen Type: SERUM No comment entered. Ordering Provider: LEIGHANN KELLOGG Report Released Date/Time: Nov 15, 2023 03:04 PM Reporting Lab: [facility]OSPITALRRANDOLPH [facility] CENTERN [facility] CENTERUSEUNITED HEALTH SERVICES [address] [facility] [address] Performing Lab: [facility]OSPITALRRANDOLPH MEDICAL CENTERN [facility] CENTERUSE[address] [address] [facility] CENTERUSE [facility] BASIC METABOLI C PANEL (non-fas ting) UREA NITROGEN [MASS/VOLU ME] IN SERUM OR PLASMA 15 mg/dL 7 - 25 11/28 Specimen Type: SERUM No comment entered. Ordering Provider: LEIGHANN KELLOGG Report Released Date/Time: Nov 15, 2023 03:04 PM Reporting Lab: [facility] HOSPITALRL WSTRN [place] [address] [address] Performing Lab: [place] [facility] CENTERUSETS [address] [address] [place] [facility] BASIC METABOLI C PANEL (non-fas ting) GLUCOSE [MASS/VOLU ME] IN SERUM OR PLASMA 170 mg/dL 65 - 100 11/28 H Specimen Type: SERUM No comment entered. Ordering Provider: LEIGHANN KELLOGG Report Released Date/Time: Nov 15, 2023 03:04 PM Reporting Lab: [facility] HOSPITALRL TRN [facility]ICAL CENTERUSE[address] [address] Performing Lab: [facility] HOSPITALRL TRN [facility] CENTERUSE[address] [address] [facility]OSPITALRRANDOLPH MEDICAL CENTERN [facility] BASIC METABOLI C PANEL (non-fas ting) SODIUM [MOLES/VOL UME] IN SERUM OR PLASMA 143 mmol/L 135 - 145 11/28 Specimen Type: SERUM No comment entered. Ordering Provider: LEIGHANN KELLOGG Report Released Date/Time: Nov 15, 2023 03:04 PM Reporting Lab: [facility] HOSPITALRL TRN [facility] CENTERUSE[address] [address] Performing Lab: [facility] HOSPITALRL WSTRN [facility] CENTERUSE[address] [address] [facility] HOSPITALRTAYLOR HARDIN SECURE MEDICAL FACILITYTRN [facility] CENTERUSE [facility] BASIC METABOLI C PANEL (non-fas ting) POTASSIUM [MOLES/VOL UME] IN SERUM OR PLASMA 3.8 mmol/L 3.5 - 5.0 11/28 Specimen Type: SERUM No comment entered. Ordering Provider: LEIGHANN KELLOGG Report Released Date/Time: Nov 15, 2023 03:04 PM Reporting Lab: [place] [facility] [place] [address] [address] Performing Lab: [facility] HOSPITALRL WSTRN [facility] CENTERUSETS [address] [address] [facility] HOSPITALRL TRN [facility] BASIC METABOLI C PANEL (non-fas ting) CHLORIDE [MOLES/VOL UME] IN SERUM OR PLASMA 99 mmol/L 100 - 110 11/28 L Specimen Type: SERUM No comment entered. Ordering Provider: LEIGHANN KELLOGG Report Released Date/Time: Nov 15, 2023 03:04 PM Reporting Lab: [address] [address] Performing Lab: [address] [address] [facility] BASIC METABOLI C PANEL (non-fas ting) CARBON DIOXIDE, TOTAL [MOLES/VOL UME] IN SERUM OR PLASMA 33 meq/L 20 - 30 11/28 H Specimen Type: SERUM No comment entered. Ordering Provider: LEIGHANN KELLOGG Report Released Date/Time: Nov 15, 2023 03:04 PM Reporting Lab: [address] [address] Performing Lab: [address] [address] [facility] BASIC METABOLI C PANEL (non-fas ting) CREATININE [MASS/VOLU ME] IN SERUM OR PLASMA 0.74 mg/dL 0.50 - 1.40 11/28 Specimen Type: SERUM No comment entered. Ordering Provider: LEIGHANN KELLOGG Report Released Date/Time: Nov 15, 2023 03:04 PM Reporting Lab: [address] [address] Performing Lab: [address] [address] [facility] BASIC METABOLI C PANEL (non-fas ting) GLOMERULAR FILTRATION RATE/1.73 SQ M.PREDICTE D [VOLUME RATE/AREA] IN SERUM, PLASMA OR BLOOD BY CREATININE -BASED FORMULA (CKD-EPI 2020) >90mL/mi n 60 11/28 Specimen Type: SERUM No comment entered. Ordering Provider: LEIGHANN KELLOGG Report Released Date/Time: Nov 15, 2023 03:04 PM Reporting Lab: [facility] [address] [facility] [address] Performing Lab: [facility] [address] [facility] [address] [facility] METHADON E SCREEN METHADONE [PRESENCE] IN URINE BY SCREEN METHOD None detected (Negativ e) 09/13 L Specimen Type: URINE Comment: JEANNETTE test are qualitative , any L or H flags only indicate a [facility] alert was sent. Ordering Provider: SAMIA NORIEGA Report Released Date/Time: Sep 06, 2023 11:52 AM Reporting Lab: [facility] [address] [facility] [address] Performing Lab: [facility] [address] [facility] [facility] [address] [facility] ALCOHOL, ETHYL URINE PANEL ETHANOL [MASS/VOLU ME] IN URINE NONE-DET ECTEDmg/ dL - 10 09/13 Specimen Type: URINE Comment: Urine with Cr <5 is diluted or substituted . Cr between 5 and 20 is very dilute. Urine with SG of 1.001 or less is diluted or substituted . SG of 1.003 or less is very dilute. Urine with a pH <3 or >11 has been adulterated and is unsuitable for testing by our current method. Urine with pH between 3 and 4 OR 10 and 11 may have been adulterated . Ordering Provider: SAMIA NORIEGA Report Released Date/Time: Sep 06, 2023 11:52 AM Reporting Lab: [facility] [address] [facility] [address] Performing Lab: [facility] [address] [facility] [address] [facility] ALCOHOL, ETHYL URINE PANEL PH OF URINE 7.1 [pH] 4 - 10 09/13 Specimen Type: URINE Comment: Urine with Cr <5 is diluted or substituted . Cr between 5 and 20 is very dilute. Urine with SG of 1.001 or less is diluted or substituted . SG of 1.003 or less is very dilute. Urine with a pH <3 or >11 has been adulterated and is unsuitable for testing by our current method. Urine with pH between 3 and 4 OR 10 and 11 may have been adulterated . Ordering Provider: SAMIA NORIEGA Report Released Date/Time: Sep 06, 2023 11:52 AM Reporting Lab: [facility]ITALRL [place] [place] [address] [address] Performing Lab: [place] [facility] [place] [address] [address] [facility]ITALRL [facility]N [place] [facility] ALCOHOL, ETHYL URINE PANEL CREATININE [MASS/VOLU ME] IN URINE 121.93 mg/dL 09/13 Specimen Type: URINE Comment: Urine with Cr <5 is diluted or substituted . Cr between 5 and 20 is very dilute. Urine with SG of 1.001 or less is diluted or substituted . SG of 1.003 or less is very dilute. Urine with a pH <3 or >11 has been adulterated and is unsuitable for testing by our current method. Urine with pH between 3 and 4 OR 10 and 11 may have been adulterated . Ordering Provider: SAMIA NORIEGA Report Released Date/Time: Sep 06, 2023 11:52 AM Reporting Lab: [facility]ITALRL [place] [address] [address] Performing Lab: [facility]ITALRL [place] [address] [address] [facility] HOSPITALRTAYLOR HARDIN SECURE MEDICAL FACILITYTRN [place] [facility] ALCOHOL, ETHYL URINE PANEL SPECIFIC GRAVITY OF URINE 1.015 1.003 - 1.020 09/13 Specimen Type: URINE Comment: Urine with Cr <5 is diluted or substituted . Cr between 5 and 20 is very dilute. Urine with SG of 1.001 or less is diluted or substituted . SG of 1.003 or less is very dilute. Urine with a pH <3 or >11 has been adulterated and is unsuitable for testing by our current method. Urine with pH between 3 and 4 OR 10 and 11 may have been adulterated . Ordering Provider: SAMIA NORIEGA Report Released Date/Time: Sep 06, 2023 11:52 AM Reporting Lab: [place] [facility] [place] [address] [address] Performing Lab: [facility] HOSPITALRTAYLOR HARDIN SECURE MEDICAL FACILITYTRN [place] [address] [address] [facility] AMPHETAM CHIN SCREEN PANEL AMPHETAMIN ES [PRESENCE] IN URINE NONE-DET ECTED - 1000 09/13 Specimen Type: URINE Comment: Urine with Cr <5 is diluted or substituted . Cr between 5 and 20 is very dilute. Urine with SG of 1.001 or less is diluted or substituted . SG of 1.003 or less is very dilute. Urine with a pH <3 or >11 has been adulterated and is unsuitable for testing by our current method. Urine with pH between 3 and 4 OR 10 and 11 may have been adulterated . Ordering Provider: SAMIA NORIEGA Report Released Date/Time: Sep 06, 2023 11:52 AM Reporting Lab: [facility] CENTERUSE[address] [address] Performing Lab: [facility] MEDICAL CENTERUSETS [address] [address] [facility] AMPHETAM CHIN SCREEN PANEL PH OF URINE 7.1 [pH] 4 - 10 09/13 Specimen Type: URINE Comment: Urine with Cr <5 is diluted or substituted . Cr between 5 and 20 is very dilute. Urine with SG of 1.001 or less is diluted or substituted . SG of 1.003 or less is very dilute. Urine with a pH <3 or >11 has been adulterated and is unsuitable for testing by our current method. Urine with pH between 3 and 4 OR 10 and 11 may have been adulterated . Ordering Provider: SAMIA NORIEGA Report Released Date/Time: Sep 06, 2023 11:52 AM Reporting Lab: [facility] [place] [address] [address] Performing Lab: [facility] CENTERUSE[address] [address] [facility] AMPHETAM CHIN SCREEN PANEL CREATININE [MASS/VOLU ME] IN URINE 121.93 mg/dL 20 09/13 Specimen Type: URINE Comment: Urine with Cr <5 is diluted or substituted . Cr between 5 and 20 is very dilute. Urine with SG of 1.001 or less is diluted or substituted . SG of 1.003 or less is very dilute. Urine with a pH <3 or >11 has been adulterated and is unsuitable for testing by our current method. Urine with pH between 3 and 4 OR 10 and 11 may have been adulterated . Ordering Provider: SAMIA NORIEGA Report Released Date/Time: Sep 06, 2023 11:52 AM Reporting Lab: [facility]USE[address] [address] Performing Lab: [address] [address] [facility] AMPHETAM CHIN SCREEN PANEL SPECIFIC GRAVITY OF URINE 1.015 1.003 - 1.020 09/13 Specimen Type: URINE Comment: Urine with Cr <5 is diluted or substituted . Cr between 5 and 20 is very dilute. Urine with SG of 1.001 or less is diluted or substituted . SG of 1.003 or less is very dilute. Urine with a pH <3 or >11 has been adulterated and is unsuitable for testing by our current method. Urine with pH between 3 and 4 OR 10 and 11 may have been adulterated . Ordering Provider: SAMIA NORIEGA Report Released Date/Time: Sep 06, 2023 11:52 AM Reporting Lab: [facility]ITALUSE[address] [address] Performing Lab: [facility]ITALUSE[address] [address] [facility]ITALUSE [facility] FENTANYL SCREEN PANEL FENTANYL [PRESENCE] IN URINE BY SCREEN METHOD NONE-DET ECTEDng/ mL 09/13 Specimen Type: URINE Comment: Urine with Cr <5 is diluted or substituted . Cr between 5 and 20 is very dilute. Urine with SG of 1.001 or less is diluted or substituted . SG of 1.003 or less is very dilute. Urine with a pH <3 or >11 has been adulterated and is unsuitable for testing by our current method. Urine with pH between 3 and 4 OR 10 and 11 may have been adulterated . FENTANYL CONFIRMATIO N NOT SENT BY LAB. Ordering Provider: SAMIA NORIEGA Report Released Date/Time: Sep 06, 2023 11:52 AM Reporting Lab: [address] [address] Performing Lab: [address] [address] [facility] FENTANYL SCREEN PANEL PH OF URINE 7.1 [pH] 4 - 10 09/13 Specimen Type: URINE Comment: Urine with Cr <5 is diluted or substituted . Cr between 5 and 20 is very dilute. Urine with SG of 1.001 or less is diluted or substituted . SG of 1.003 or less is very dilute. Urine with a pH <3 or >11 has been adulterated and is unsuitable for testing by our current method. Urine with pH between 3 and 4 OR 10 and 11 may have been adulterated . FENTANYL CONFIRMATIO N NOT SENT BY LAB. Ordering Provider: SAMIA NORIEGA Report Released Date/Time: Sep 06, 2023 11:52 AM Reporting Lab: [address] [address] Performing Lab: [address] [address] [facility] FENTANYL SCREEN PANEL CREATININE [MASS/VOLU ME] IN URINE 119.81 mg/dL 09/13 Specimen Type: URINE Comment: Urine with Cr <5 is diluted or substituted . Cr between 5 and 20 is very dilute. Urine with SG of 1.001 or less is diluted or substituted . SG of 1.003 or less is very dilute. Urine with a pH <3 or >11 has been adulterated and is unsuitable for testing by our current method. Urine with pH between 3 and 4 OR 10 and 11 may have been adulterated . FENTANYL CONFIRMATIO N NOT SENT BY LAB. Ordering Provider: SAMIA NORIEGA Report Released Date/Time: Sep 06, 2023 11:52 AM Reporting Lab: [facility]OSPITALUSETS [address] [address] Performing Lab: [facility] CAMPUSTRN [facility]ENTERUSETS [facility] [address] [facility] [address] [facility] CENTERUSE [facility] FENTANYL SCREEN PANEL SPECIFIC GRAVITY OF URINE 1.016 1.003 - 1.020 09/13 Specimen Type: URINE Comment: Urine with Cr <5 is diluted or substituted . Cr between 5 and 20 is very dilute. Urine with SG of 1.001 or less is diluted or substituted . SG of 1.003 or less is very dilute. Urine with a pH <3 or >11 has been adulterated and is unsuitable for testing by our current method. Urine with pH between 3 and 4 OR 10 and 11 may have been adulterated . FENTANYL CONFIRMATIO N NOT SENT BY LAB. Ordering Provider: SAMIA NORIEGA Report Released Date/Time: Sep 06, 2023 11:52 AM Reporting Lab: [facility] CENTERUSE[address] [address] Per[address]: [facility] CENTERUSE[address] [address] [facility]OSPITALUSE [facility] BENZODIA ZEPINES SCREEN PANEL BENZODIAZE PINES [PRESENCE] IN URINE BY SCREEN METHOD NONE-DET ECTED - 200 09/13 Specimen Type: URINE Comment: Urine with Cr <5 is diluted or substituted . Cr between 5 and 20 is very dilute. Urine with SG of 1.001 or less is diluted or substituted . SG of 1.003 or less is very dilute. Urine with a pH <3 or >11 has been adulterated and is unsuitable for testing by our current method. Urine with pH between 3 and 4 OR 10 and 11 may have been adulterated . Ordering Provider: SAMIA NORIEGA Report Released Date/Time: Sep 06, 2023 11:52 AM Reporting Lab: [facility] CENTERUSETS [address] [address] Performing Lab: [facility]ENTERUSE[address] [address] [facility] MED[facility] CENTERUSE [facility] BENZODIA ZEPINES SCREEN PANEL PH OF URINE 7.1 [pH] 4 - 10 09/13 Specimen Type: URINE Comment: Urine with Cr <5 is diluted or substituted . Cr between 5 and 20 is very dilute. Urine with SG of 1.001 or less is diluted or substituted . SG of 1.003 or less is very dilute. Urine with a pH <3 or >11 has been adulterated and is unsuitable for testing by our current method. Urine with pH between 3 and 4 OR 10 and 11 may have been adulterated . Ordering Provider: SAMIA NORIEGA Report Released Date/Time: Sep 06, 2023 11:52 AM Reporting Lab: [address] [address] Performing Lab: [address] [address] [facility] BENZODIA ZEPINES SCREEN PANEL CREATININE [MASS/VOLU ME] IN URINE 121.93 mg/dL 09/13 Specimen Type: URINE Comment: Urine with Cr <5 is diluted or substituted . Cr between 5 and 20 is very dilute. Urine with SG of 1.001 or less is diluted or substituted . SG of 1.003 or less is very dilute. Urine with a pH <3 or >11 has been adulterated and is unsuitable for testing by our current method. Urine with pH between 3 and 4 OR 10 and 11 may have been adulterated . Ordering Provider: SAMIA NORIEGA Report Released Date/Time: Sep 06, 2023 11:52 AM Reporting Lab: [facility] IDbyMEUSE[address] [address] Performing Lab: [facility]ITALUSE[address] [address] [facility] BENZODIA ZEPINES SCREEN PANEL SPECIFIC GRAVITY OF URINE 1.015 1.003 - 1.020 09/13 Specimen Type: URINE Comment: Urine with Cr <5 is diluted or substituted . Cr between 5 and 20 is very dilute. Urine with SG of 1.001 or less is diluted or substituted . SG of 1.003 or less is very dilute. Urine with a pH <3 or >11 has been adulterated and is unsuitable for testing by our current method. Urine with pH between 3 and 4 OR 10 and 11 may have been adulterated . Ordering Provider: SAMIA NORIEGA Report Released Date/Time: Sep 06, 2023 11:52 AM Reporting Lab: [facility]OSPITALRTAYLOR HARDIN SECURE MEDICAL FACILITYTRN [facility] CENTERUSETS [address] [address] Performing Lab: [facility]OSPITALRTAYLOR HARDIN SECURE MEDICAL FACILITYTRN [facility] CENTERUSETS [address] [address] [facility]OSPITALRRANDOLPH MEDICAL CENTERN [facility] CANNABIN OIDS SCREEN PANEL CANNABINOI DS [PRESENCE] IN URINE BY SCREEN METHOD POSITIVE - 50 09/13 HH Specimen Type: URINE Comment: Urine with Cr <5 is diluted or substituted . Cr between 5 and 20 is very dilute. Urine with SG of 1.001 or less is diluted or substituted . SG of 1.003 or less is very dilute. Urine with a pH <3 or >11 has been adulterated and is unsuitable for testing by our current method. Urine with pH between 3 and 4 OR 10 and 11 may have been adulterated . Ordering Provider: SAMIA NORIEGA Report Released Date/Time: Sep 06, 2023 11:52 AM Reporting Lab: [facility]OSPITALRTAYLOR HARDIN SECURE MEDICAL FACILITYTRN [facility] CENTERUSETS [address] [address] [address]: [facility] CENTERUSE[address] [address] [facility] CANNABIN OIDS SCREEN PANEL PH OF URINE 7.1 [pH] 4 - 10 09/13 Specimen Type: URINE Comment: Urine with Cr <5 is diluted or substituted . Cr between 5 and 20 is very dilute. Urine with SG of 1.001 or less is diluted or substituted . SG of 1.003 or less is very dilute. Urine with a pH <3 or >11 has been adulterated and is unsuitable for testing by our current method. Urine with pH between 3 and 4 OR 10 and 11 may have been adulterated . Ordering Provider: SAMIA NORIEGA Report Released Date/Time: Sep 06, 2023 11:52 AM Reporting Lab: [facility]OSPITALRTAYLOR HARDIN SECURE MEDICAL FACILITYTRN [address] [address] Performing Lab: [facility] [place] [address] [address] [facility]ENTERUSE [facility] CANNABIN OIDS SCREEN PANEL CREATININE [MASS/VOLU ME] IN URINE 121.93 mg/dL 20 09/13 Specimen Type: URINE Comment: Urine with Cr <5 is diluted or substituted . Cr between 5 and 20 is very dilute. Urine with SG of 1.001 or less is diluted or substituted . SG of 1.003 or less is very dilute. Urine with a pH <3 or >11 has been adulterated and is unsuitable for testing by our current method. Urine with pH between 3 and 4 OR 10 and 11 may have been adulterated . Ordering Provider: SAMIA NORIEGA Report Released Date/Time: Sep 06, 2023 11:52 AM Reporting Lab: [address] [address] Performing Lab: [facility] CENTERUSE[address] [address] [facility] CANNABIN OIDS SCREEN PANEL SPECIFIC GRAVITY OF URINE 1.015 1.003 - 1.020 09/13 Specimen Type: URINE Comment: Urine with Cr <5 is diluted or substituted . Cr between 5 and 20 is very dilute. Urine with SG of 1.001 or less is diluted or substituted . SG of 1.003 or less is very dilute. Urine with a pH <3 or >11 has been adulterated and is unsuitable for testing by our current method. Urine with pH between 3 and 4 OR 10 and 11 may have been adulterated . Ordering Provider: SAMIA NORIEGA Report Released Date/Time: Sep 06, 2023 11:52 AM Reporting Lab: [facility]ENTERUSE[address] [address] [address]: [facility] CENTERUSE[address] [address] [facility] BUPRENOR PHINE SCREEN PANEL BUPRENORPH INE [PRESENCE] IN URINE NONE-DET ECTED 09/13 Specimen Type: URINE Comment: Urine with Cr <5 is diluted or substituted . Cr between 5 and 20 is very dilute. Urine with SG of 1.001 or less is diluted or substituted . SG of 1.003 or less is very dilute. Urine with a pH <3 or >11 has been adulterated and is unsuitable for testing by our current method. Urine with pH between 3 and 4 OR 10 and 11 may have been adulterated . Ordering Provider: SAMIA NORIEGA Report Released Date/Time: Sep 06, 2023 11:52 AM Reporting Lab: [facility]OSPITALRTAYLOR HARDIN SECURE MEDICAL FACILITYTRN [place] [address] [address] Performing Lab: [facility]ITALUSE[address] [address] [facility]ENTERUSE [facility] BUPRENOR PHINE SCREEN PANEL PH OF URINE 7.1 [pH] 4 - 10 09/13 Specimen Type: URINE Comment: Urine with Cr <5 is diluted or substituted . Cr between 5 and 20 is very dilute. Urine with SG of 1.001 or less is diluted or substituted . SG of 1.003 or less is very dilute. Urine with a pH <3 or >11 has been adulterated and is unsuitable for testing by our current method. Urine with pH between 3 and 4 OR 10 and 11 may have been adulterated . Ordering Provider: SAMIA NORIEGA Report Released Date/Time: Sep 06, 2023 11:52 AM Reporting Lab: [facility]ENTERUSE[address] [address] Performing Lab: [facility]OSPITALRTAYLOR HARDIN [facility] MEDICAL FACILITYTRN [facility]ENTERUSE[address] [address] [facility] BUPRENOR PHINE SCREEN PANEL CREATININE [MASS/VOLU ME] IN URINE 121.93 mg/dL 09/13 Specimen Type: URINE Comment: Urine with Cr <5 is diluted or substituted . Cr between 5 and 20 is very dilute. Urine with SG of 1.001 or less is diluted or substituted . SG of 1.003 or less is very dilute. Urine with a pH <3 or >11 has been adulterated and is unsuitable for testing by our current method. Urine with pH between 3 and 4 OR 10 and 11 may have been adulterated . Ordering Provider: SAMIA NORIEGA Report Released Date/Time: Sep 06, 2023 11:52 AM Reporting Lab: [place] [facility] [place] [facility] [address] [facility] [address] Performing Lab: [facility] HOSPITALRL WSTRN [facility]PITALCHUSETS [address] [address] [facility] HOSPITALCHUSE [facility] BUPRENOR PHINE SCREEN PANEL SPECIFIC GRAVITY OF URINE 1.015 1.003 - 1.020 09/13 Specimen Type: URINE Comment: Urine with Cr <5 is diluted or substituted . Cr between 5 and 20 is very dilute. Urine with SG of 1.001 or less is diluted or substituted . SG of 1.003 or less is very dilute. Urine with a pH <3 or >11 has been adulterated and is unsuitable for testing by our current method. Urine with pH between 3 and 4 OR 10 and 11 may have been adulterated . Ordering Provider: SAMIA NORIEGA Report Released Date/Time: Sep 06, 2023 11:52 AM Reporting Lab: [facility]ITALRL [place] [address] [address] Performing Lab: [facility] HOSPITALRTAYLOR HARDIN [facility] MEDICAL FACILITYTRN [facility] CENTERUSETS [address] [address] [facility]ENTERUSE [facility] COCAINE SCREEN PANEL COCAINE [PRESENCE] IN URINE BY SCREEN METHOD NONE-DET ECTED - 300 09/13 Specimen Type: URINE Comment: Urine with Cr <5 is diluted or substituted . Cr between 5 and 20 is very dilute. Urine with SG of 1.001 or less is diluted or substituted . SG of 1.003 or less is very dilute. Urine with a pH <3 or >11 has been adulterated and is unsuitable for testing by our current method. Urine with pH between 3 and 4 OR 10 and 11 may have been adulterated . Ordering Provider: SAMIA NORIEGA Report Released Date/Time: Sep 06, 2023 11:52 AM Reporting [facility] [place] [address] [address] Performing Lab: [facility] [address] [facility] SCREEN PANEL PH OF URINE 7.1 [pH] 4 - 10 09/13 Specimen Type: URINE Comment: Urine with Cr <5 is diluted or substituted . Cr between 5 and 20 is very dilute. Urine with SG of 1.001 or less is diluted or substituted . SG of 1.003 or less is very dilute. Urine with a pH <3 or >11 has been adulterated and is unsuitable for testing by our current method. Urine with pH between 3 and 4 OR 10 and 11 may have been adulterated . Ordering Provider: SAMIA NORIEGA Report Released Date/Time: Sep 06, 2023 11:52 AM Reporting Lab: [address] [address] Performing Lab: [address] [address] [facility] SCREEN PANEL CREATININE [MASS/VOLU ME] IN URINE 121.93 mg/dL 09/13 Specimen Type: URINE Comment: Urine with Cr <5 is diluted or substituted . Cr between 5 and 20 is very dilute. Urine with SG of 1.001 or less is diluted or substituted . SG of 1.003 or less is very dilute. Urine with a pH <3 or >11 has been adulterated and is unsuitable for testing by our current method. Urine with pH between 3 and 4 OR 10 and 11 may have been adulterated . Ordering Provider: SAMIA NORIEGA Report Released Date/Time: Sep 06, 2023 11:52 AM Reporting Lab: [address] [address] Performing Lab: [address] [address] [facility] SCREEN PANEL SPECIFIC GRAVITY OF URINE 1.015 1.003 - 1.020 09/13 Specimen Type: URINE Comment: Urine with Cr <5 is diluted or substituted . Cr between 5 and 20 is very dilute. Urine with SG of 1.001 or less is diluted or substituted . SG of 1.003 or less is very dilute. Urine with a pH <3 or >11 has been adulterated and is unsuitable for testing by our current method. Urine with pH between 3 and 4 OR 10 and 11 may have been adulterated . Ordering Provider: SAMIA NORIEGA Report Released Date/Time: Sep 06, 2023 11:52 AM Reporting Lab: [facility] [address] [facility] [address] Performing Lab: [facility] [address] [facility] [address] [facility] Vital Signs Combined list of inpatient and outpatient Vital Signs from Department of Defense and Veterans Affairs, ranging from 12 months to all on record, depending upon the facility. Vital Sign Value Date Comments Source SYSTOLIC BLOOD PRESSURE 159 06/04/19 10:07:52 [facility] DIASTOLIC BLOOD PRESSURE 88 025 10:07:52 [facility] PULSE OXIMETRY 98 06/03/2024 10:07:52 [facility] WEIGHT 150 06/03/2024 10:07:52 [facility] BMI 22 kg/m2 06/03/2024 10:07:52 [facility] PAIN 3 06/03/2024 10:07:52 [facility] TEMPERATURE 98.3 06/03/2024 10:07:52 [facility] PULSE 89 06/03/2024 10:07:52 [facility] RESPIRATION 16 06/03/2024 10:07:52 [facility] SYSTOLIC BLOOD PRESSURE 130 05/03/19 25 10:01:46 [facility] DIASTOLIC BLOOD PRESSURE 76 025 10:01:46 [facility] PULSE OXIMETRY 98 05/02/2024 10:01:46 [facility] WEIGHT 148 05/02/2024 10:01:46 [facility] BMI 22 kg/m2 05/02/2024 10:01:46 [facility] PAIN 4 05/02/2024 10:01:46 [facility] TEMPERATURE 96.6 05/02/2024 10:01:46 [facility] PULSE 86 05/02/2024 10:01:46 [facility] RESPIRATION 18 05/02/2024 10:01:46 [facility] SYSTOLIC BLOOD PRESSURE 121 02/08/20 24 15:46:16 [facility] DIASTOLIC BLOOD PRESSURE 84 024 15:46:16 [facility] PAIN 0 02/08/2024 15:46:16 [facility] PULSE 66 02/08/2024 15:46:16 [facility] SYSTOLIC BLOOD PRESSURE 117 12/04/19 24 09:07:07 [facility] DIASTOLIC BLOOD PRESSURE 71 024 09:07:07 [facility] PULSE OXIMETRY 98 12/04/2023 09:07:07 [facility] WEIGHT 142 12/04/2023 09:07:07 [facility] BMI 21 kg/m2 12/04/2023 09:07:07 [facility] PAIN 2 12/04/2023 09:07:07 [facility] TEMPERATURE 97.6 12/04/2023 09:07:07 [facility] PULSE 114 12/04/2023 09:07:07 [facility] RESPIRATION 16 12/04/2023 09:07:07 [facility] SYSTOLIC BLOOD PRESSURE 149 11/14/19 14:55:26 [facility] DIASTOLIC BLOOD PRESSURE 80 024 14:55:26 [facility] PULSE OXIMETRY 96 11/14/2023 14:55:26 [facility] WEIGHT 146 11/14/2023 14:55:26 [facility] BMI 22 kg/m2 11/14/2023 14:55:26 [facility] PAIN 0 11/14/2023 14:55:26 [facility] TEMPERATURE 98.5 11/14/2023 14:55:26 [facility] PULSE 82 11/14/2023 14:55:26 [facility] RESPIRATION 18 11/14/2023 14:55:26 [facility] Encounters Combined list of: 1) Encounters from Department of Veterans Affairs facilities going backup to the last 18 months, not all VA inpatient encounters are included; 2) Encounters from the Department of Defense facilities going backup to 280 months. Location Location Details Encounter Type Encounter Number Reason For Visit Attending Provider ADM Date DC Date Status Disposition Source [facility] Out[facility] Encounter [id number] 02/06 [facility]counter [id number] 02/14 [facility] Out[facility] Encounter [id number] 02/16 [facility] Encounter [id number] 02/16 [facility] Out[facility] Encounter [id number] 02/22 [facility] Encounter [id number] 02/22 [facility] Out[facility] Encounter [id number] 02/23 [facility] Out[facility] Encounter [id number] 02/23 [facility] [place] NAIL 6 OR MORE [id number] Diagnos is: ICD-10- CM G62.9 Polyneu ropathy , unspeci fied MARIANELA RODRIGUEZ EVANGELIST 02/27 [facility] Out[facility] Encounter [id number] 02/28 [facility] Out[facility] Encounter [id number] 03/02 [facility] Out[facility] Encounter [id number] 03/07 [facility] Out[facility] Encounter [id number] CHARISSA HARRIS MMED JAWED 03/12 [facility] INFRARED THERAPY [id number] Diagnos is: ICD-10- CM M54.50 Low back pain, unspeci fied GAUNYA,CHR ISTOPHER M 03/19 [facility] Out[facility] Encounter [id number] Aziza FIGUEROA 03/19 [facility] Out[facility] Encounter [id number] 03/20 [facility] Out[facility] Encounter [id number] 03/20 [facility] Out[facility] Encounter [id number] 03/20 [facility] Out[facility] Encounter [id number] Roly JOVEL 04/09 [facility] Out[facility] Encounter [id number] 04/09 [facility] HEARING AID REPAIR/MOD IFYING [id number] Diagnos is: ICD-10- CM Z46.1 Encount er for fitting and adjustm ent of hearing aid PAIGE MANZANO 04/11 [facility] OFFICE O/P EST MOD 30 MIN [id number] Diagnos is: ICD-10- CM J47.9 Bronchi ectasis , uncompl icated CHARISSA HARRIS MMED JAWED 04/15 [facility] Out[facility] Encounter [id number] 05/02 [facility] REMOVABLE PROSTHODON TIC PROC [id number] Diagnos is: ICD-10- CM K08.531 Fractur ed dental restora tive materia l with loss of materia l DYANA OROPEZA 05/03 [facility] INFRARED THERAPY [id number] Diagnos is: ICD-10- CM M54.50 Low back pain, unspeci fied GAUNYA,CHR ISTOPHER M 05/06 [facility] OFFICE O/P EST MOD 30 MIN [id number] Diagnos is: ICD-10- CM M79.7 Fibromy algia MAY,DAVID LY P 05/10 [facility] INFRARED THERAPY [id number] Diagnos is: ICD-10- CM M54.50 Low back pain, unspeci fied GAUNYA,CHR ISTOPHER M 05/20 [facility] Outpatient Encounter [id number] 05/22 [facility] REMOVABLE PROSTHODON TIC PROC [id number] Diagnos is: ICD-10- CM K08.9 Disorde r of teeth and support ing structu res, unspeci fied DYANA OROPEZA 05/23 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 GAIT TRAINING THERAPY [id number] Diagnos is: ICD-10- CM G20.A1 Meaghan on's dis w/o dyskine mikaela, w/o mention of fluctua tions MONIQUE SAPP LLY M 06/18 [facility] THERAPEUTI C EXERCISES [id number] Diagnos is: ICD-10- CM G20.A1 Meaghan on's dis w/o dyskine mikaela, w/o mention of fluctua tions MONIQUE SAPP LLY M 06/26 [facility] THERAPEUTI C EXERCISES [id number] Diagnos is: ICD-10- CM G20.A1 Meaghan on's dis w/o dyskine mikaela, w/o mention of fluctua tions KECIAETMONIQUE LLY M 07/10 [facility] ACUPUNCT W/O STIMUL ADDL 15M [id number] Diagnos is: ICD-10- CM M54.50 Low back pain, unspeci fied FRANUNNHUNG,CHR ISTOPHER M 07/11 [facility] [place] 1 [id number] Diagnos is: ICD-10- CM H40.113 1 Primary open-an gle glaucom a, bilater al, mild stage BORASKI,AN JOSE LUIS E 07/12 [facility] EXTENDED VISUAL FIELD XM [id number] Diagnos is: ICD-10- CM H40.113 1 Primary open-an gle glaucom a, bilater al, mild stage BORASKI,AN JOSE LUIS E 07/12 [facility] CMPTR OPHTH IMG OPTIC NERVE [id number] Diagnos is: ICD-10- CM H40.113 1 Primary open-an gle glaucom a, bilater al, mild stage GUNJANDAVIS ANTOINE E 07/12 [facility] FIT SPECTACLES BIFOCAL [id number] Diagnos is: ICD-10- CM Z46.0 Encount er for fit/adj st of spectac les and contact lenses DAVIS BRANCH E 07/12 [facility] Outpatient Encounter [id number] FURCOLO,TI NA 07/16 [facility] THERAPEUTI C EXERCISES [id number] Diagnos is: ICD-10- CM G20.A1 Meaghan on's dis w/o dyskine mikaela, w/o mention of fluctua tiMONIQUE Moreno 07/16 [facility] Out[facility] Encounter [id number] 07/24 [facility] CLEAN/INSP ECT DEIDRA PART DENT [id number] Diagnos is: ICD-10- CM K03.6 Deposit s [accret ions] on teeth Sourav FAYE ADEKimberleyHDA 07/25 [facility] Out[facility] En[facility] [id number] 07/29 [facility] REMOVABLE PROSTHODON TIC PROC [id number] Diagnos is: ICD-10- CM K08.199 Complet e loss of teeth due to oth cause, unspeci fied class DYANA OROPEZA 07/30 [facility] Out[facility] Encounter [id number] 08/20 [facility] Out[facility] Encounter [id number] 08/22 [facility] Out[facility] Encounter [id number] 08/22 [facility] Out[facility] Encounter [id number] 08/26 [facility] MANDIBULAR PART DENTURE FLEX [id number] Diagnos is: ICD-10- CM K08.199 Complet e loss of teeth due to oth cause, unspeci fied class DYANA OROPEZA 08/27 [facility] HEARING AID REPAIR/MOD IFYING [id number] Diagnos is: ICD-10- CM H90.A32 Mix cndct/s nrl hear loss,un i,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 PAIGE MANZANO 08/29 [facility] Out[facility] Encounter [id number] 09/02 [facility] Out[facility] Encounter [id number] 09/03 [facility] Out[facility] Encounter [id number] 09/04 [facility] Out[facility] Encounter [id number] KATHRYN HERNANDEZ 09/05 [facility] Out[facility] Encounter [id number] 09/05 [facility] Out[facility] Encounter [id number] 09/10 [facility] Out[facility] Encounter [id number] 09/24 [facility] Out[facility] Encounter [id number] 09/25 [facility] Out[facility] Encounter [id number] DAVID VALDEZ P 09/26 [facility] Out[facility] Encounter [id number] 09/26 [facility] Out[facility] Encounter [id number] 09[facility]26 [facility] Out[facility] Encounter [id number] 10/03 [facility] Out[facility] Encounter [id number] 10/16 [facility] Out[facility] Encounter [id number] JULIO CÉSAR KELLOGG NA 10/31 [facility] Out[facility] Encounter [id number] AMEYA CAMPBELL M 11/05 [facility] Out[facility] Encounter [id number] 11/05 [facility] Out[facility]counter [id number] 11/07 [facility] Out[facility] Encounter [id number] 1. Anant ROBERT 11/11 [facility] Out[facility] Encounter [id number] 1.11/11 [facility] OFF/OP CNSLTJ NEW/EST MOD 40 [id number] Diagnos is: ICD-10- CM H90.3 Sensori neural hearing loss, bilater al SHAAN KNIGHT 11/13 [facility] Out[facility] Encounter [id number] 11/20 [facility] Outpatient Encounter [id number] 11/26 [facility] OFFICE O/P EST MOD 30 MIN [id number] Diagnos is: ICD-10- CM G20.A1 Meaghan on's dis w/o dyskine mikaela, w/o mention of fluctua tions FURCOLO,TI NA 12/03 [facility] Out[facility] Encounter [id number] 12/16 [facility] EXTENDED VISUAL FIELD XM [id number] Diagnos is: ICD-10- CM H40.113 1 Primary open-an gle glaucom a, bilater al, mild stage BORASKI,AN JOSE LUIS E 12/26 [facility] CMPTR OPHTH IMG OPTIC NERVE [id number] Diagnos is: ICD-10- CM H40.113 1 Primary open-an gle glaucom a, bilater al, mild stage BORASKI,AN JOSE LUIS E 12/26 [facility] Outpatient Encounter [id number] 12/26 [facility] Outpatient Encounter [id number] 12/30 [facility] [place] [place] [id number] 1. Diagnos is: ICD-10- CM H90.3 Sensori neural hearing loss, bilater al PAIGE MANZANO 12/31 [facility] GAIT TRAINING THERAPY [id number] 1. Diagnos is: ICD-10- CM G20.A1 Meaghan on's dis w/o dyskine mikaela, w/o mention of fluctua tions MONIQUE SAPP 12/31 [facility] INTRM OPH EXAM EST PATIENT [id number] 1. Diagnos is: ICD-10- CM H40.113 1 Primary open-an gle glaucom a, bilater al, mild stage HURTADO,DAMI Y J 01/01 [facility] FIT SPECTACLES BIFOCAL [id number] 1. Diagnos is: ICD-10- CM Z46.0 Encount er for fit/adj st of spectac les and contact lenses HURTADO,DAMI Y Tomasz 01/01 [facility] Outpatient Encounter [id number] 1.01/29 [facility] Outpatient [facility]counter [id number]/06 [facility] CLEAN/INSP ECT DEIDRA PART DENT [id number] Diagnos is: ICD-10- CM K03.6 Deposit s [accret ions] on teeth Sourav FAYE 02/07 [facility] INTRAORAL [place] [id number] Diagnos is: ICD-10- CM K08.9 Disorde r of teeth and support ing structu res, unspeci DYANA Chin 02/07 [facility] Outpatient Encounter [id number]/19 [facility] OFFICE O/P EST HI 40 MIN [id number] Diagnos is: ICD-10- CM M79.7 Fibromy algia DAVID VALDEZ LY P 05/02 [facility] HEARING AID REPAIR/MOD IFYING [id number] Diagnos is: ICD-10- CM Z46.1 Encount er for fitting and adjustm ent of hearing aid ANGELY HERNANDEZ L 05/05 [facility] Out[facility] Encounter [id number] 05/16 [facility] Encounter [id number] 05/26 [facility] OFF[facility] O/P EST MOD 30 MIN [id number] Diagnos is: ICD-10- CM 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 FURCOLO,TI NA 06/03 [facility] En[facility] [id number] 06/13 [facility] MTMS BY PHARM ADDL 15 MIN [id number] Diagnos is: ICD-10- CM G89.29 Other chronic pain TEP,CANELO S JIMENEZ 06/16 [facility] En[facility] [id number] 06/19 [facility] [id number] 06/19 [facility] [id number] 06/20 [facility] Encounter [id number] 07/01 [facility] Encounter [id number] 07/02 [facility] INFRARED THERAPY [id number] Diagnos is: ICD-10- CM M54.50 Low back pain, unspeci fied GAUNYA,CHR ISTOPHER M 07/18 [facility] Outpatient Encounter [id number] 08/04 [facility] Social History Combined list of available smoking, tobacco, and other social history from [facility] and [facility] facilities. Social History Type Response Date Comment Sour e Tobacco smoking status LAIS VA-TOBACCO NEVER USED 03/20/2023 [facility] History of tobacco use VA-TOBACCO NEVER USED 01/09/2022 [facility] History of tobacco use VA-TOBACCO NEVER USED 01/31/2021 [facility] History of tobacco use VA-TOBACCO NEVER USED 08/18/2019 [facility] History of tobacco use VA-TOBACCO NEVER USED 05/10/2018 [facility] History of tobacco use LIFETIME NON-TOBACCO USER 05/07/2017 [facility] History of tobacco use LIFETIME NON-TOBACCO USER 05/04/2016 [facility] History [facility] tobacco use LIFETIME NON-TOBACCO USER 03/22/2015 [facility] History of tobacco use LIFETIME NON-SMOKER 02/24/2004 [facility] History of tobacco use LIFETIME NON-SMOKER 12/29/2002 [facility] History of tobacco use LIFETIME NON-SMOKER 01/01/2002 [facility] History of tobacco use LIFETIME NON-TOBACCO USER 06/10/2001 [facility] Plan of Care List of future care activities from [facility] facilities. Additional future care activities may be listed in the Assessment and Plan section. Date/Time Care Activity Care Activity Detail Facili ty 09/09/2024 AMBULATORY - MEDICINE AMBULATORY - MEDICI [facility] Advance Directives List of completed, amended, or rescinded Advance Directives on record at [facility] facilities. An actual copy of the Directive is not included. Date Advance Directive Provider Source 09/14/2010 ADVANCE DIRECTIVE [facility]
[2024-08-08 13:54] VITALS: BP 104/62; PULSE 87; O2SAT 95; BMI 20.5
--- NOTE | 2024-08-08 13:54 | A.OFFVIS_ITS ---
Vital Signs 08/08/24 13:54 Height 5 ft 9.5 in Weight 141 lb BMI 20.5 BP 104/62 Blood Pressure Location Rt brachial Position Sitting Pulse 87 Pulse Source Pulse Oximeter Pulse Oximetry (%) 95 Oxygen Delivery Method Room Air Comment verbal weight- pt refused Intake Visit Reasons: COPD Allergies Sulfa (Sulfonamide Antibiotics) (SULFA (SULFONAMIDE ANTIBIOTICS)) Allergy (Severe, Verified 07/22/24 14:39) THROAT SWELLING, DIFF BREATHING, SKIN TURNS PINK HPI HPI COPD: Details: 78-year-old gentleman, nonsmoker, with underlying history of bronchiectasis status post right-sided lobectomy in 1960s at [facility], further complicated by what appears to be right-sided diaphragmatic dysfunction with prior sniff test with unclear results, and right-sided atelectasis.? Previously followed by pulmonology at [facility].? Patient complains of intermittent exacerbations of his bronchiectasis requiring suppressive antibiotic therapy.? Patient continues to do well on current regimen of Anoro, Asmanex, and albuterol MDI and denies any recent bronchiectasis exacerbations. His recent CT chest shows stable bronchiectatic findings. [facility] Medical History COPD (chronic obstructive pulmonary disease) Cardiac arrhythmia Surgical History History of lobectomy of lung Family History Father No problems noted. Mother No problems noted. Social History Alcohol intake: current Alcohol intake frequency: 0-2 drinks per day Alcohol type: beer Patient Tobacco Use Status: Never used Tobacco Second Hand Smoke Exposure: No Review of Systems Const Denies daytime sleepiness, Denies excessive sweating, Denies fatigue, Denies fever(s), Denies lethargy, Denies malaise, Denies night sweats, Denies snoring and Denies weight loss Eyes Denies blurry vision and Denies itchy eyes ENT Denies nasal congestion, Denies post nasal drip, Denies sinus pain, Denies sinus pressure and Denies other ( Thrush) Card Denies chest pain, Denies pedal edema, Denies dyspnea, Denies orthopnea and Denies paroxysmal nocturnal dyspnea Resp Denies cough, Denies hemoptysis, Denies excessive phlegm production, Denies dyspnea, Denies snoring and Denies wheezing GI Denies abdominal pain and Denies heartburn Musc Denies myalgias, Denies arthralgias and Denies joint swelling Skin/Breast Denies rash Neuro Denies memory loss and Denies seizure-like activity Psych Denies abnormal sleep pattern, Denies anxiety and Denies memory loss Endo Denies excessive sweating, Denies fatigue and Denies heat intolerance Bacilio/Lymph Denies easy bruising Aller/Immun Denies itchy eyes, Denies seasonal rhinorrhea and Denies wheezing Physical Exam Vital Signs: Last Vital Signs Pulse 87 08/08/24 13:54 BP 104/62 08/08/24 13:54 Pulse Ox 95 08/08/24 13:54 Oxygen Delivery Method Room Air 08/08/24 13:54 BMI result Body Mass Index 20.5 Const General: no acute distress and alert Nutritional Appearance: not obese Orientation/consciousness: Other orientation findings ( oriented) HEENT Head: Yes atraumatic Eyes General: appearance normal, both eyes and all related structures Sclerae: sclerae normal EOM: EOMs intact bilaterally Neck Neck: Yes supple Lymphatic: no lymphadenopathy noted Resp Effort & Inspection: normal respiratory effort and no use of accessory muscles Auscultation: clear to auscultation bilaterally Cardio Rate: regular rate Rhythm: regular rhythm Heart sounds: no gallops, no murmurs and no rubs Skin General skin exam: other ( warm) Extrem General: No clubbing, No cyanosis and No edema Assessment & Plan Assessment & Plan (1) COPD (chronic obstructive pulmonary disease): Code(s): J44.9 - Chronic obstructive pulmonary disease, unspecified Category: Medical Plan: Well controlled on current regimen of Anoro, Asmanex, and albuterol MDI. Continue current regimen. (2) Bronchiectasis: Code(s): J47.9 - Bronchiectasis, uncomplicated Category: Medical Plan: Results of CT chest reviewed, underlying more on mild bronchiectasis. No recent exacerbations. Continue to monitor clinically. Coding Level of Care Code Est Pt Level 4 (15686) Diagnoses COPD (chronic obstructive pulmonary disease) J44.9 Bronchiectasis J47.9
== END 2024-08-08 14:23 | disposition home or self-care (01) ==
LOC: HO.HPS 13:51
PROVIDERS: PCP Family Medicine; Referring Provider Internal Medicine Pulmonary Disease; Visit Provider Internal Medicine Pulmonary Disease
DX: J44.9 Chronic obstructive pulmonary disease, unspecified (principal); J47.9 Bronchiectasis, uncomplicated
CPT/HCPCS: 99214

== ENCOUNTER → 2024-08-08 13:50 | Outpatient (BNVA) | payer OTHER, SELFPAY | PROVIDERS: PCP Family Medicine; Visit Provider Internal Medicine Pulmonary Disease | DX: Z71.2 Person consulting for explanation of examination or test findings (principal); J44.9 Chronic obstructive pulmonary disease, unspecified; J47.9 Bronchiectasis, uncomplicated | CPT/HCPCS: 99212 ==